=== PATIENT | female | born 1960 | race Caucasian/White ===

== ENCOUNTER 2020-09-08 13:21 | Emergency (ER) | payer MEDICARE, SELFPAY ==
[2020-09-08 13:49] VITALS: BP 135/105; PULSE 105; RESP 24; TEMP 37.2; O2SAT 92; BMI 41.4
--- NOTE | 2020-09-08 14:06 | XR_ITS ---
WS: [id number] Exam: XR chest 1V portable [id number] Date/Time of Exam: 09/08/2020 2:06 PM Reason For Exam: SOB Comparison 10/20/2019. There are widespread patchy infiltrates throughout both lungs consistent with pneumonia. Cardiomedias tinal structures are unremarkable for technique. Bony elements are intact. East rods bridge the lower thoracic spine. No pleural effusions. The lungs are fully expanded. XR/XR chest 1V portable [id number] IMPRESSION: 1. Widespread patchy infiltrates throughout both lungs suggesting pneumonia.
[2020-09-08 14:07] VITALS: O2SAT 94
--- NOTE | 2020-09-08 14:10 | ED_ITS ---
HPI - Weakness General: Chief complaint: Weakness Stated complaint: WEAKNESS, COVID + Time Seen by Provider: 09/08/20 13:36 Source: patient Mode of arrival: EMS Limitations: no limitations History of Present Illness: HPI Narrative: Patient is a 60-year-old female patient who was recently diagnosed with COVID-19 infection. The patient is not a very good historian and could not tell me exactly when she was diagnosed. She complains that for the last week she has been getting progressively weaker and is here for evaluation of that. She denies any fever, shortness of breath, chest pain, dizziness. MD Complaint: generalized weakness Onset (ago): week(s) (1) Duration: constant and progressively worsening Location: generalized Associated symptoms: Denies chills, dysuria, fever(s), headache(s), nausea or vomiting Review of Systems General: Reports: 10 or more systems reviewed and unremarkable except in HPI and below Const: Denies: fever(s), chills or body aches Eyes: Denies: change in vision or blurry vision ENMT: Denies: throat pain, enlarged tonsils, odynophagia, hoarseness, mouth pain or swelling of lips/tongue Card: Denies: palpitations, irregular heart rhythm, edema or swelling of feet/ankles Resp: Denies: dyspnea, productive cough or non-productive cough GI: Denies: abdominal pain, nausea or vomiting : Denies: flank pain, difficulty voiding, dysuria, urinary frequency, urinary urgency or urinary hesitancy Musc: Denies: neck pain, back pain or extremity swelling Skin/Breast: Denies: rash, pruritus or erythema Neuro: Denies: headache(s), numbness in extremities or weakness in extremities Endo: Denies: polyuria, polydipsia or tired all the time Physical Exam Const: COMMON NORMALS: no acute distress, average body habitus, patient oriented x3, no limitations, healthy appearing, alert and well nourished HENMT: COMMON NORMALS: normocephalic, atraumatic and moist oral mucous membranes HEAD & SCALP: normocephalic and atraumatic Neck/C-Spine: COMMON NORMALS: no meningeal signs and no JVD Resp: COMMON NORMALS: normal respiratory effort, No retractions, No use of accessory muscles, clear to auscultation bilaterally and percussion normal AUSCULTATION: clear to auscultation bilaterally PERCUSSION: percussion normal Cardio: COMMON NORMALS: no JVD, regular rate, regular rhythm, S1 normal heart sound present, S2 normal heart sound present, No gallops present (Cardio), No clicks present (Cardio), No murmurs present (Cardio), No rub (Cardio) and Peripheral pulses 2+ throughout RATE: regular rate RHYTHM: regular rhythm HEART SOUNDS: S1 normal heart sound present and S2 normal heart sound present PERIPHERAL PULSES: Peripheral pulses 2+ throughout GI: COMMON NORMALS: Normal to inspection, nondistended, normoactive bowel wilmer nds present, Soft to palpation, non-tender, No hepatosplenomegaly present, no masses and no bruits PALPATION: Yes Soft to palpation and Yes No hepatosplenomegaly present : COMMON NORMALS: Yes no CVA tenderness BLADDER/KIDNEY EXAM: Yes no CVA tenderness Back/Pelvis: COMMON NORMALS: no CVA tenderness Extremity: COMMON NORMALS: normal to inspection, full ROM, capillary refill normal, no calf tenderness and no pedal edema Neuro: COMMON NORMALS: patient oriented x3 SENSORIUM/ORIENTATION: Yes alert MENINGEAL SIGNS: Yes no meningeal signs Skin: COMMON NORMALS: no rashes or lesions noted, no wounds, turgor normal, no jaundice, no petechiae and no mottling GENERAL SKIN EXAM: no rashes or lesions noted and turgor normal Course ED course: Patient was brought into the emergency department for evaluation due to COVID-19. Evaluation in the emergency department was unremarkable and she has with pneumonia. Patient was not hypoxic in the emergency department and she was discharged home Vital Signs: Vital signs: Vital Signs Temperature 99.0 F 09/08/20 13:49 Pulse Rate 78 09/08/20 19:40 Respiratory Rate 18 09/08/20 19:40 Blood Pressure 148/74 09/08/20 19:34 Pulse Oximetry 94 09/08/20 19:40 MDM - Weakness MDM Narrative: Medical decision making narrative: Patient with Covid pneumonia that is uncomplicated. She is not hypoxic, no signs of organ dysfunction. She is discharged home Medical Records: Attestation: I reviewed the patient's medical records. Lab Data: Attestation: I reviewed the patient's lab results. Labs: Lab Results 09/08/20 09/08/2020 Range/Units 14:32 14:32 14:32 WBC 5.7 (4.0-10.0) 10^3/ uL RBC 4.33 (4.1-5.3) 10^6/u L Hgb 13.3 (11.5-15.3) g/dL Hct 38.9 (37.0-47.0) % MCV 89.8 (81-99) fL MCH 30.7 (28.0-34.0) pg MCHC 34.2 (30.0-36.0) g/dL RDW 13.7 (12.1-15.1) % Plt Count 320 (130-400) 10^3/c mm MPV 10.5 H (7.4-10.4) fL Neut % (Auto) 65.9 % Lymph % (Auto) 22.6 % [place] % (Auto) 9.4 % Eos % (Auto) 1.4 % Baso % (Auto) 0.2 % Neut # (Auto) 3.73 (1.8-7.7) 10^3/u L Lymph # (Auto) 1.3 (0.8-4.8) 10^3/u L [place] # (Auto) 0.5 (0.2-0.9) 10^3/u L Eos # (Auto) 0.1 (0.0-0.8) 10^3/u L Baso # (Auto) 0.0 (0.0-0.1) 10^3/u L Nucleated RBC % (a uto) 0 % Nucleated RBCs # 0.0 /100WBC PT 13.90 (12.1-14.9) SECO NDS INR 1.04 (0.8-1.2) D-Dimer 1.67 H (0-0.59) ug/mIFE U Sodium 138 (136-145) mmol/L Potassium 3.1 L (3.5-5.1) mmol/L Chloride 100 (98-107) mmol/L Carbon Dioxide 25 (22-29) mmol/L Anion Gap 16.1 (5-19) BUN 16 (8-23) mg/dL Creatinine 0.5 (0.5-0.9) mg/dL GFR Calculation 125.0 (90-130) mL/min Glucose 111 (65-115) mg/dL Calculated Osmolal ity 288 (285-295) mOsm/k g Lactic Acid (0.5-2.2) mmol/L Calcium 9.2 (8.5-10.5) mg/dL Ferritin 458 H (15-150) ng/mL Total Bilirubin 0.6 (0.15-1.2) mg/dL AST 36 H (0-32) U/L ALT 37 H (0-33) U/L Alkaline Phosphata se 63 (35-105) IU/L Lactate Dehydrogen ase 339 H (135-214) U/L C-Reactive Protein 103.2 H (0.0-4.9) mg/L NT-Pro-B Natriuret Pep 49 (0-125) pg/mL Total Protein 6.6 (6.6-8.7) g/dL Albumin 3.5 (3.5-5.2) g/dL Globulin 3.1 (1.3-4.6) g/dL Procalcitonin 0.06 (0-0.5) ng/mL Influenza Type A A g (Negative) Influenza Type B A g (Negative) 09/08/20 09/08/20 Range/Units 14:32 14:39 WBC (4.0-10.0) 10^3/ uL RBC (4.1-5.3) 10^6/u L Hgb (11.5-15.3) g/dL Hct (37.0-47.0) % MCV (81-99) fL MCH (28.0-34.0) pg MCHC (30.0-36.0) g/dL RDW (12.1-15.1) % Plt Count (130-400) 10^3/c mm MPV (7.4-10.4) fL Neut % (Auto) % Lymph % (Auto) % [place] % (Auto) % Eos % (Auto) % Baso % (Auto) % Neut # (Auto) (1.8-7.7) 10^3/u L Lymph # (Auto) (0.8-4.8) 10^3/u L [place] # (Auto) (0.2-0.9) 10^3/u L Eos # (Auto) (0.0-0.8) 10^3/u L Baso # (Auto) (0.0-0.1) 10^3/u L Nucleated RBC % (a uto) % Nucleated RBCs # /100WBC PT (12.1-14.9) SECO NDS INR (0.8-1.2) D-Dimer (0-0.59) ug/mIFE U Sodium (136-145) mmol/L Potassium (3.5-5.1) mmol/L Chloride (98-107) mmol/L Carbon Dioxide (22-29) mmol/L Anion Gap (5-19) BUN (8-23) mg/dL Creatinine (0.5-0.9) mg/dL GFR Calculation (90-130) mL/min Glucose (65-115) mg/dL Calculated Osmolal ity (285-295) mOsm/k g Lactic Acid 1.1 (0.5-2.2) mmol/L Calcium (8.5-10.5) mg/dL Ferritin (15-150) ng/mL Total Bilirubin (0.15-1.2) mg/dL AST (0-32) U/L ALT (0-33) U/L Alkaline Phosphata se (35-105) IU/L Lactate Dehydrogen ase (135-214) U/L C-Reactive Protein (0.0-4.9) mg/L NT-Pro-B Natriuret Pep (0-125) pg/mL Total Protein (6.6-8.7) g/dL Albumin (3.5-5.2) g/dL Globulin (1.3-4.6) g/dL Procalcitonin (0-0.5) ng/mL Influenza Type A A g Negative (Negative) Influenza Type B A g Negative (Negative) Imaging Data^: CXR: Attestation: I personally reviewed and interpreted this imaging study as follows: Radiologist's impression: [address] [address] XRay Report Signed Patient: Jenniffer Hollingsworth #: [id number] : 8Acct#:[id number] Age/Sex: 60 / FADM Date: 09/08/20 Loc: ERRoom/Bed: Attending Dr: Ordering Provider/Ordering MD: Tor Ortega [place] [facility] [place] Service: 09/08/20 Procedure(s): XR chest 1V portable [id number] Accession Number(s): [id number] Report Number: [id number] WS: [id number] Exam: XR chest 1V portable [id number] Date/Time of Exam: 09/08/2020 2:06 PM Reason For Exam: SOB Comparison 10/20/2019. There are widespread patchy infiltrates throughout both lungs consistent with pneumonia. Cardiomediastinal structures are unremarkable for technique. Bony elements are intact. East rods bridge the lower thoracic spine. No pleural effusions. The lungs are fully expanded. XR/XR chest 1V portable [id number] IMPRESSION: 1. Widespread patchy infiltrates throughout both lungs suggesting pneumonia. Dictated By:Singh Gavin DO Signed By:Uvaldo Fisher Date/Time:09/08/201444 DD/ 41 CTA Chest: Attestation: I personally reviewed and interpreted this imaging study as follows: Radiologist's impression: [place] [address] CT Scan Report Signed Patient: Jenniffer Hollingsworth #: [id number] : 8[facility][id number] Age/Sex: 60 / FADM Date: 09/08/20 Loc: ERRoom/Bed: Attending Dr: Ordering Provider/Ordering MD: Tor Ortega MD, [facility] [place] of Service: 09/08/20 Procedure(s): CT angio chest PE protcl [id number] Accession Number(s): [id number] Report Number: [id number] WS: [id number] Exam: CT angio chest PE protcl [id number] Date/Time of Exam: 09/08/2020 3:56 PM Reason For Exam: SOB DLP: 579.[address] scans at [facility] use at least one of these dose optimization techniques: automated exposure control; mA and/or kV adjustment per patient size (includes targeted exams where dose is matched to clinical indication); or iterative reconstruction. Motion artifact noted on multiple images. No sign of acute PE. The thoracic aorta is normal in caliber. The airway is patent. No significant lymphadenopathy in the chest. There are patchy groundglass infiltrates scattered throughout both lungs. No pericardial effusion . No significant pleural effusion. Large hiatal hernia. There is hardware in the lower thoracic and lumbar spine. No destructive bone lesions are chest wall defects. CT/CT angio chest PE protcl [id number] IMPRESSION: 1. No sign of acute PE. 2. Patchy groundglass infiltrates noted throughout both lungs which are nonspecific but can be seen with Covid pneumonia. 3. Large hiatal hernia. Dictated By:Singh Gavin DO Signed By:Uvaldo Fisher Date/Time:09/08/20 1705 DD/ 58 Discharge Plan Discharge Patient Disposition: Home Clinical Impression: Pneumonia due to 2019 novel coronavirus Condition: Stable Prescriptions: New dexamethasone 6 mg tablet 6 mg PO DAILY Qty: 9 RF: 0 Continued lisinopril 10 mg tablet 10 mg PO DAILY Qty: 90 RF: 0 sucralfate 1 gram tablet 1 g PO TID RF: 0 clonazepam 0.5 mg tablet 0.5 mg PO TID RF: 0 pantoprazole 40 mg tablet,delayed release (DR/EC) 40 mg PO DAILY RF: 0 olanzapine 15 mg tablet 15 mg PO DAILY RF: 0 paroxetine HCl 40 mg tablet 40 mg PO DAILY RF: 0 fluticasone propionate 50 mcg/actuation spray,suspension 1 spray INTRANASAL DAILY RF: 0 bupropion HCl 200 mg tablet sustained-release 12 hr 200 mg PO BID RF: 0 metoprolol tartrate 25 mg tablet 25 mg PO BID RF: 0 Fosamax 70 mg tablet 70 mg PO Q7D RF: 0 Discharge Orders: Discharge Order (Routine); Ordered 09/08/20 Ordered By: Tor Ortega Referrals: Alisson Sánchez MD [Family Provider] - 1-3 days Discharge Diet: Usual diet Discharge Activity: Resume usual activity and Increase activity as tolerated Patient Instructions: Pneumonia - Viral Activity Restrictions/Additional Instructions: Return for any new or worsening symptoms. Follow-up with your primary care provider within 3 days. Take the medications as prescribed. Discharge Date/Time: 09/08/20 19:40 Coding Level of Care Code ED Animal Treatment Investigator for Chg Fwd Exam Comprehensive
[2020-09-08 14:40] LABS: Basophils % 0.2 %; Eosinophils # 0.1 10^3/uL (0.0-0.8); Eosinophils % 1.4 %; Hematocrit 38.9 % (37.0-47.0); Hemoglobin 13.3 g/dL (11.5-15.3); Lymphocytes # 1.3 10^3/uL (0.8-4.8); Lymphocytes % 22.6 %; Mean Corpuscular HGB Conc 34.2 g/dL (30.0-36.0); Mean Corpuscular Hemoglobin 30.7 pg (28.0-34.0); Mean Corpuscular Volume 89.8 fL (81-99); Mean Platelet Volume 10.5 fL (7.4-10.4); Monocytes # 0.5 10^3/uL (0.2-0.9); Monocytes % 9.4 %; Neutrophils # 3.73 10^3/uL (1.8-7.7); Neutrophils % 65.9 %; Nucleated Red Blood Cells % 0 %; Platelet Count 320 10^3/cmm (130-400); Red Blood Count 4.33 10^6/uL (4.1-5.3); Red Cell Distribution Width 13.7 % (12.1-15.1); White Blood Count 5.7 10^3/uL (4.0-10.0)
[2020-09-08 14:41] VITALS: BP 128/96; O2SAT 91
[2020-09-08 15:13] LABS: Lactic Sepsis W/Reflex 1.1 mmol/L (0.5-2.2)
[2020-09-08 15:17] LABS: NT Pro B Type Natriuretic Pept 49 pg/mL (0-125); Procalcitonin 0.06 ng/mL (0-0.5)
[2020-09-08 15:29] LABS: Alanine Aminotransferase 37 U/L (0-33); Albumin Level 3.5 g/dL (3.5-5.2); Alkaline Phosphatase 63 IU/L (35-105); Anion Gap 16.1 (5-19); Aspartate Amino Transferase 36 U/L (0-32); Blood Urea Nitrogen 16 mg/dL (8-23); C Reactive Protein 103.2 mg/L (0.0-4.9); Calcium 9.2 mg/dL (8.5-10.5); Carbon Dioxide 25 mmol/L (22-29); Chloride 100 mmol/L (98-107); Ferritin 458 ng/mL (15-150); Globulin 3.1 g/dL (1.3-4.6); Glucose 111 mg/dL (65-115); Lactate Dehydrogenase 339 U/L (135-214); Osmolality Calculated 288 mOsm/kg (285-295); Potassium 3.1 mmol/L (3.5-5.1); Sodium 138 mmol/L (136-145); Total Bilirubin 0.6 mg/dL (0.15-1.2); Total Protein 6.6 g/dL (6.6-8.7)
[2020-09-08 15:41] LABS: Influenza A by IFA Negative (Negative); Influenza B by IFA Negative (Negative)
[2020-09-08 15:46] LABS: INR 1.04 (0.8-1.2)
[2020-09-08 15:49] LABS: D Dimer 1.67 ug/mIFEU (0-0.59)
--- NOTE | 2020-09-08 15:54 | CT_ITS ---
WS: [id number] Exam: CT angio chest PE protcl [id number] Date/Time of Exam: 09/08/2020 3:56 PM Reason For Exam: SOB DLP: 579.[address] scans at [facility] use at least one of these dose optimization techniques: automat ed exposure control; mA and/or kV adjustment per patient size (includes targeted exams where dose is matched to clinical indication); or iterative reconstruction. Motion artifact noted on multiple image s. No sign of acute PE. The thoracic aorta is normal in caliber. The airway is patent. No significant ly mphadenopathy in the chest. There are patchy groundglass infiltrates scattered throughout both lungs. No pericardial effusion. No significant pleural effusion. Large hiatal hernia. There is hardware in the lower thoracic and lumbar spine. No destructive bone lesions are chest wall defects. CT/CT angio chest PE protcl [id number] IMPRESSION: 1. No sign of acute PE. 2. Patchy groundglass infiltrates noted throughout both lungs which are nonspec ific but can be seen with Covid pneumonia. 3. Large hiatal hernia.
[2020-09-08] MEDS: potassium chloride oral liq 20 mEq/15 mL UDC 40 MEQ PO (16:18)
[2020-09-08 16:20] VITALS: BP 158/114; PULSE 121; O2SAT 93
[2020-09-08] MEDS: iohexol 350 mg/mL 100 mL Btl IV (16:42)
[2020-09-08] MEDS: dexamethasone 4 mg/mL INJ 6 MG IVP (17:47)
--- NOTE | 2020-09-08 18:35 | PC.NURSE ---
Rosalind Chan (daughter) contacted for pt transport home.
[2020-09-08 19:34] VITALS: BP 148/74; PULSE 87; RESP 16; O2SAT 99
[2020-09-08 19:40] VITALS: PULSE 78; RESP 18; O2SAT 94
== END 2020-09-08 19:40 | disposition home or self-care (01) ==
PROVIDERS: Emergency Provider Family Medicine; Family Provider Family Medicine
DX: U07.1 COVID-19 (principal); J12.89 Other viral pneumonia; R06.02 Shortness of breath
CPT/HCPCS: 12345; 71045; 71275; 80053; 82728; 83605; 83615; 83880; 84145; 85025; 85378; 85610; 86140; 87804; 96374; 96375; 99283; 99284; J1100; Q9967

== ENCOUNTER 2021-10-20 15:34 | Emergency (ER) | payer MEDICARE, MEDICAID, SELFPAY ==
[2021-10-20 15:42] VITALS: BP 162/103; PULSE 72; RESP 18; TEMP 36.9; O2SAT 97; BMI 37.2
--- NOTE | 2021-10-20 17:00 | ECG_ITS ---
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 Measurements Intervals Maury Rate: 67 P: 49 OR: 180 QRS: 12 QRSD: 75 T: 32 QT: 407 QTc: 431 Interpretive Statements SINUS RHYTHM LOW QRS VOLTAGE IN PRECORDIAL LEADS [QRS DEFLECTION < 1.0 mV IN CHEST LEADS] NONSPECIFIC ST & T-WAVE ABNORMALITY No previous ECG available for comparison Electronically Signed On 10-22-2021 7:39:30 [employer] by Edy Del Angel M.D. [id number]
--- NOTE | 2021-10-20 17:00 | CTR_ITS ---
PROCEDURE INFORMATION: Exam: CT Abdomen And Pelvis With Contrast Exam date and time: 10/20/2021 5:00 PM Age: 61 years old Clinical indication: Generalized; Prior surgery; Patient HX: Lower abdominal pain; Additional info: Abd pain TECHNIQUE: Imaging protocol: Computed tomography of the abdomen and pelvis with contrast. Radiation optimization: All CT scans at this facility use at least one of these dose optimization techniques: automated exposure control; mA and/or kV adjustment per patient size (includes targeted exams where dose is matched to clinical indication); or iterative reconstruction. Contrast material: RAMIRO 300; Contrast volume: 95 ml; Contrast route: INTRAVENOUS (IV); COMPARISON: CT angio chest PE protcl [id number] 09/08/2020 4:38 PM RADIATION DOSE METRICS: Total DLP (mGy-cm): 1910.6 FINDINGS: Diaphragm: A moderate hiatal hernia is present. Liver: 1.7 cm cyst left lobe of liver. Gallbladder and bile ducts: There has been a cholecystectomy. There is no biliary tract dilatation. Pancreas: The pancreas is normal. Spleen: The spleen is normal. Adrenal glands: The adrenal glands are normal. Kidneys and ureters: The kidneys are normal. There is no evidence of hydronephrosis. There is no evidence of renal or ureteral calcifications. Stomach and bowel: There is no evidence of intestinal obstruction. Appendix: Not identified Intraperitoneal space: There is no evidence of free intraperitoneal fluid. Vasculature: The aorta demonstrates mild atherosclerotic calcification. There is no evidence of an abdominal aortic aneurysm. Lymph nodes: There is no evidence of lymphadenopathy. Urinary bladder: Unremarkable as visualized. Reproductive: There has been a hysterectomy. Bones/joints: There are surgical changes in the rectal lumbar spine with posterior spinal fusion using pedicle screws at multiple levels and anti in rods with T12 laminectomy. Chronic compression fracture and findings of kyphoplasty at T12 are identified. No acute fracture is demonstrated. There are old healed left rib fractures. Soft tissues: Unremarkable. CT/CT abdomen pelvis w con* [id number] IMPRESSION: No acute findings.
--- NOTE | 2021-10-20 17:01 | XRR_ITS ---
PROCEDURE INFORMATION: Exam: XR Chest Exam date and time: 10/20/2021 5:01 PM Age: 61 years old Clinical indication: Pain; Other: Upper abd; Additional info: AMS TECHNIQUE: Imaging protocol: XR of the chest. Views: 1 view. COMPARISON: CR XR chest 1V portable [id number] 09/08/2020 2:26 PM FINDINGS: Lungs: Visualized portions of the lungs are clear. Pneumonia demonstrated on the prior examination has completely cleared. Pleural spaces: Unremarkable. No pleural effusion. No pneumothorax. Heart/Mediastinum: Heart is within normal limits of size. Bones/joints: There is stable postsurgical changes in the lower thoracic spine from spinal fusion. XR/XR chest 1V portable [id number] IMPRESSION: No acute infiltrate.
--- NOTE | 2021-10-20 17:01 | CTR_ITS ---
PROCEDURE INFORMATION: Exam: CT Head Without Contrast Exam date and time: 10/20/2021 5:01 PM Age: 61 years old Clinical indication: Altered mental status/memory loss; Confusion or disorientation; Patient HX: AMS w/ HX of dementia TECHNIQUE: Imaging protocol: Computed tomography of the head without contrast. Radiation optimization: All CT scans at this facility use at least one of these dose optimization techniques: automated exposure control; mA and/or kV adjustment per patient size (includes targeted exams where dose is matched to clinical indication); or iterative reconstruction. COMPARISON: No relevant prior studies available. RADIATION DOSE METRICS: Total DLP (mGy-cm): 950.26 FINDINGS: Brain: There is mild cortical atrophy. Low-density changes in the white matter are consistent with nonspecific small vessel chronic ischemic change. There is no intracranial mass, hemorrhage or edema. Cerebral ventricles: No ventriculomegaly. Paranasal sinuses: There is complete opacification of the right maxillary sinus and what appears to be medial antrectomy on the right. There are some mucous retention cysts in the left maxillary sinus. Mastoid air cells: Visualized mastoid air cells are well aerated. Bones/joints: There is benign-appearing calcified meningioma along the left parietal calvarium. Soft tissues: Unremarkable. CT/CT head wo con* [id number] IMPRESSION: 1. Sinus disease 2. No acute intracranial finding.
--- NOTE | 2021-10-20 17:02 | W.ED.AMS ---
Documented by User: Nathan Brady MD 10/20/21 17:55 HPI - Altered Mental Status General: Chief Complaint: Altered Mental Status Stated Complaint: AMS/ RECENT MED CHANGE Time Seen by Provider: 10/20/21 16:07 History of Present Illness: HPI narrative: 61-year-old female presents by EMS due to confusion. According to family she has been more confused recently but does not know exactly for how long. Per patient she has had some abdominal pain over the last 2 weeks. States that recently her doctor increase her dose of trazodone this is making her more tired and drowsy. Denies any nausea vomiting diarrhea constipation. Denies dysuria or pelvic discharge. Denies any falls or head trauma. Denies focal numbness weakness or tingling. Denies neck pain. Review of Systems Narrative: - CONSTITUTIONAL: Denies weight loss, fever and chills. - HEENT: Denies changes in vision and hearing. - RESPIRATORY: Denies SOB and cough. - CV: Denies palpitations and CP. - GI: As above - : Denies dysuria and urinary frequency. - MSK: Denies myalgia and joint pain. - SKIN: Denies rash and pruritus. - NEUROLOGICAL: As above - PSYCHIATRIC: Denies suicidal ideation Physical Exam Narrative: EXAM NARRATIVE: - GENERAL: Alert and oriented x 3. No acute distress. Well-nourished. - EYES: EOMI. Anicteric. - HENT: Atraumatic, no C-spine tenderness. Moist mucous membranes. No scleral icterus. No cervical lymphadenopathy. - LUNGS: Clear to auscultation bilaterally. No accessory muscle use. Equal lung sounds bilaterally. No respiratory distress. - CARDIOVASCULAR: Regular rate and rhythm. No murmur. No JVD. - ABDOMEN: Soft, mild diffuse tenderness. Negative CVA tenderness bilaterally, no rebound or guarding, negative [place] sign. No palpable masses. - EXTREMITIES: No edema. Non-tender. - SKIN: No rashes or lesions. Warm. - NEUROLOGIC: No meningismus or focal neurological deficits. CN II-XII grossly intact. - PSYCHIATRIC: Cooperative. Appropriate mood and affect. Course Vital Signs: Vital signs: Vital Signs Temperature 98.4 F 10/20/21 15:42 Pulse Rate 72 10/20/21 15:42 Respiratory Rate 18 10/20/21 15:42 Blood Pressure 162/103 10/20/21 15:42 Pulse Oximetry 97 10/20/21 15:42 MDM - Altered Mental Status MDM Narrative: Medical decision making narrative: 61-year-old female presents due to increasing confusion and abdominal pain. She recently had her trazodone dose increased which may explain confusion. Nonfocal neurologic exam. CT of the head is currently pending but she denies any falls or headache or neck pain. Also complains of abdominal pain for which abdominal CT is currently pending. However otherwise she is hematin stable afebrile nontoxic-appearing. Patient signed out to Dr. Woody. Lab Data: Labs: Lab Results 10/20/21 10/20/21 10/20/21 14:53 15:30 15:30 WBC 8.1 10^3/uL 10^3/ uL (4.0-10.0) RBC 4.71 10^6/uL 10^6 /uL (4.1-5.3) Hgb 14.2 g/dL g/dL (11.5-15.3) Hct 42.7 % % (37.0-47.0) MCV 90.7 fl fl (81-99) MCH 30.1 pg pg (28.0-34.0) MCHC 33.3 g/dL g/dL (30.0-36.0) RDW 14.0 % % (12.1-15.1) Plt Count 261 10^3/cmm 10^3 /cmm (130-400) MPV 11.2 fL H fL (7.4-10.4) Neut % (Auto) 49.3 % % Lymph % (Auto) 41.5 % % [place] % (Auto) 6.9 % % Eos % (Auto) 1.6 % % Baso % (Auto) 0.5 % % Neut # (Auto) 3.98 10^3/uL 10^3 /uL (1.8-7.7) Lymph # (Auto) 3.4 10^3/uL 10^3/ uL (0.8-4.8) [place] # (Auto) 0.6 10^3/uL 10^3/ uL (0.2-0.9) Eos # (Auto) 0.1 10^3/uL 10^3/ uL (0.0-0.8) Baso # (Auto) 0.0 10^3/uL 10^3/ uL (0.0-0.1) Nucleated RBC % (a uto) 0 % % Nucleated RBCs # 0.0 /100WBC /100W BC Sodium 141 mmol/L mmol/L (136-145) Potassium 3.6 mmol/L mmol/L (3.5-5.1) Chloride 105 mmol/L mmol/L (98-107) Carbon Dioxide 26 mmol/L mmol/L (22-29) Anion Gap 13.6 (5-19) BUN 12 mg/dL mg/dL (8-23) Creatinine 0.6 mg/dL mg/dL (0.5-0.9) GFR Calculation 101.0 mL/min mL/m in (90-130) Glucose 109 mg/dL mg/dL (65-115) Calculated Osmolal ity 292 mOsm/kg mOsm/ kg (285-295) Lactate Calcium 8.6 mg/dL mg/dL (8.5-10.5) Total Bilirubin 0.4 mg/dL mg/dL (0.15-1.2) AST 16 U/L U/L (0-32) ALT 27 U/L U/L (0-33) Alkaline Phosphata se 81 IU/L IU/L (35-105) Total Protein 6.2 g/dL L g/dL (6.6-8.7) Albumin 4.2 g/dL g/dL (3.5-5.2) Globulin 2.0 g/dL g/dL (1.3-4.6) Lipase 30 U/L U/L (13-60) TSH 1.80 uIU/mL uIU/m L (0.27-4.20) Urine Color Urine Appearance Urine pH Ur Specific Gravit y Urine Protein Urine Glucose (UA) Urine Ketones Urine Blood Urine Nitrate Urine Bilirubin Urine Urobilinogen Ur Leukocyte Emma ase Urine RBC Urine WBC Ur Squamous Epith Cells Amorphous Sediment Urine Bacteria Salicylates < 0.3 mg/dL L mg/ dL (3-10) Urine Opiates Scre en Acetaminophen < 5.0 ug/mL L ug/ mL (10-30) Ur Barbiturates Sc reen Ur Phencyclidine S crn Ur Amphetamines Sc reen U Benzodiazepines Scrn Urine Cocaine Scre en U Marijuana (THC) Screen Ethyl Alcohol < 10 mg/dL mg/dL (0-10) SARS-CoV-2 Ag (Rap id) 10/20/21 10/20/21 10/20/21 17:14 17:29 17:38 WBC RBC Hgb Hct MCV MCH MCHC RDW Plt Count MPV Neut % (Auto) Lymph % (Auto) [place] % (Auto) Eos % (Auto) Baso % (Auto) Neut # (Auto) Lymph # (Auto) [place] # (Auto) Eos # (Auto) Baso # (Auto) Nucleated RBC % (a uto) Nucleated RBCs # Sodium Potassium Chloride Carbon Dioxide Anion Gap BUN Creatinine GFR Calculation Glucose Calculated Osmolal ity Lactate 1.0 mmol/L mmol/L (0.5-2.2) Calcium Total Bilirubin AST ALT Alkaline Phosphata se Total Protein Albumin Globulin Lipase TSH Urine Color Straw (Yellow) Urine Appearance Clear (CLEAR) Urine pH 7 (5-7) Ur Specific Gravit y 1.010 (1.005-1.030) Urine Protein Neg (Negative) Urine Glucose (UA) Norm (Normal) Urine Ketones Negative (Negative) Urine Blood Neg (Negative) Urine Nitrate Negative (Negative) Urine Bilirubin Neg (Negative) Urine Urobilinogen Norm mg/dL mg/dL (Negative) Ur Leukocyte Emma ase Negative (Negative) Urine RBC Not Reportable Urine WBC 0-4 /hpf H /hpf (0-5) Ur Squamous Epith Cells 0-4 /hpf H /hpf (0-5) Amorphous Sediment Not Reportable Urine Bacteria Trace /hpf /hpf (NONE) Salicylates Urine Opiates Scre en Acetaminophen Ur Barbiturates Sc reen Ur Phencyclidine S crn Ur Amphetamines Sc reen U Benzodiazepines Scrn Urine Cocaine Scre en U Marijuana (THC) Screen Ethyl Alcohol SARS-CoV-2 Ag (Rap id) Negative (Negative) 10/20/21 19:26 WBC RBC Hgb Hct MCV MCH MCHC RDW Plt Count MPV Neut % (Auto) Lymph % (Auto) [place] % (Auto) Eos % (Auto) Baso % (Auto) Neut # (Auto) Lymph # (Auto) [place] # (Auto) Eos # (Auto) Baso # (Auto) Nucleated RBC % (a uto) Nucleated RBCs # Sodium Potassium Chloride Carbon Dioxide Anion Gap BUN Creatinine GFR Calculation Glucose Calculated Osmolal ity Lactate Calcium Total Bilirubin AST ALT Alkaline Phosphata se Total Protein Albumin Globulin Lipase TSH Urine Color Urine Appearance Urine pH Ur Specific Gravit y Urine Protein Urine Glucose (UA) Urine Ketones Urine Blood Urine Nitrate Urine Bilirubin Urine Urobilinogen Ur Leukocyte Emma ase Urine RBC Urine WBC Ur Squamous Epith Cells Amorphous Sediment Urine Bacteria Salicylates Urine Opiates Scre en Negative ng/mL ng /mL (Negative) Acetaminophen Ur Barbiturates Sc reen Negative ng/mL ng /mL (Negative) Ur Phencyclidine S crn Negative ng/mL ng /mL (Negative) Ur Amphetamines Sc reen Negative ng/mL ng /mL (Negative) U Benzodiazepines Scrn Negative ng/mL ng /mL (Negative) Urine Cocaine Scre en Negative ng/mL ng /mL (Negative) U Marijuana (THC) Screen Negative ng/mL ng /mL (Negative) Ethyl Alcohol SARS-CoV-2 Ag (Rap id) Discharge Plan Discharge Patient Disposition: Home Clinical Impression: Altered mental status, Delusional disorder Condition: Stable Prescriptions: No Action lisinopril 10 mg tablet 10 mg PO DAILY Qty: 90 RF: 0 sucralfate 1 gram tablet 1 g PO TID RF: 0 clonazepam 0.5 mg tablet 0.5 mg PO TID RF: 0 pantoprazole 40 mg tablet,delayed release (DR/EC) 40 mg PO DAILY RF: 0 olanzapine 15 mg tablet 15 mg PO DAILY RF: 0 paroxetine HCl 40 mg tablet 40 mg PO DAILY RF: 0 fluticasone propionate 50 mcg/actuation spray,suspension 1 spray INTRANASAL DAILY RF: 0 bupropion HCl 200 mg tablet sustained-release 12 hr 200 mg PO BID RF: 0 metoprolol tartrate 25 mg tablet 25 mg PO BID RF: 0 Fosamax 70 mg tablet 70 mg PO Q7D RF: 0 dexamethasone 6 mg tablet 6 mg PO DAILY Qty: 9 RF: 0 Discharge Orders: Discharge ED (Routine); Ordered 10/20/21 Ordered By: Ashley Woody Referrals: Alisson Sánchez MD [Primary Care Provider] - 1-3 days Discharge Diet: Advance as tolerated Discharge Activity: Resume usual activity Patient Instructions: Abdominal Pain (ED) Coding Level of Care Code ED Baling Machine Operator for Chg Fwd Documented by User: Ashley Woody MD 10/20/21 21:18 HPI - Altered Mental Status General: Chief Complaint: Altered Mental Status Stated Complaint: AMS/ RECENT MED CHANGE Time Seen by Provider: 10/20/21 16:07 Course Vital Signs: Vital signs: Vital Signs Temperature 98.4 F 10/20/21 15:42 Pulse Rate 72 10/20/21 15:42 Respiratory Rate 18 10/20/21 15:42 Blood Pressure 162/103 10/20/21 15:42 Pulse Oximetry 97 10/20/21 15:42 MDM - Altered Mental Status MDM Narrative: Medical decision making narrative: Patient presents with some confusion likely taking too much of her trazodone patient's been well-appearing here I took over from other physician. When spoke to her and her family at length the family is requesting to be admitted to psych facility but here she is answering all my questions completely appropriate she has her own medical decision made capacity I did offer her admission to the psych [facility] and she refuses she is ANO x4 and I cannot force her to have an no grounds to place her under 96-hour hold. She is stable for discharge is return if worsening. Lab Data: Labs: Lab Results 10/20/21 10/20/21 10/20/21 14:53 15:30 15:30 WBC 8.1 10^3/uL 10^3/ uL (4.0-10.0) RBC 4.71 10^6/uL 10^6 /uL (4.1-5.3) Hgb 14.2 g/dL g/dL (11.5-15.3) Hct 42.7 % % (37.0-47.0) MCV 90.7 fl fl (81-99) MCH 30.1 pg pg (28.0-34.0) MCHC 33.3 g/dL g/dL (30.0-36.0) RDW 14.0 % % (12.1-15.1) Plt Count 261 10^3/cmm 10^3 /cmm (130-400) MPV 11.2 fL H fL (7.4-10.4) Neut % (Auto) 49.3 % % Lymph % (Auto) 41.5 % % [place] % (Auto) 6.9 % % Eos % (Auto) 1.6 % % Baso % (Auto) 0.5 % % Neut # (Auto) 3.98 10^3/uL 10^3 /uL (1.8-7.7) Lymph # (Auto) 3.4 10^3/uL 10^3/ uL (0.8-4.8) [place] # (Auto) 0.6 10^3/uL 10^3/ uL (0.2-0.9) Eos # (Auto) 0.1 10^3/uL 10^3/ uL (0.0-0.8) Baso # (Auto) 0.0 10^3/uL 10^3/ uL (0.0-0.1) Nucleated RBC % (a uto) 0 % % Nucleated RBCs # 0.0 /100WBC /100W BC Sodium 141 mmol/L mmol/L (136-145) Potassium 3.6 mmol/L mmol/L (3.5-5.1) Chloride 105 mmol/L mmol/L (98-107) Carbon Dioxide 26 mmol/L mmol/L (22-29) Anion Gap 13.6 (5-19) BUN 12 mg/dL mg/dL (8-23) Creatinine 0.6 mg/dL mg/dL (0.5-0.9) GFR Calculation 101.0 mL/min mL/m in (90-130) Glucose 109 mg/dL mg/dL (65-115) Calculated Osmolal ity 292 mOsm/kg mOsm/ kg (285-295) Lactate Calcium 8.6 mg/dL mg/dL (8.5-10.5) Total Bilirubin 0.4 mg/dL mg/dL (0.15-1.2) AST 16 U/L U/L (0-32) ALT 27 U/L U/L (0-33) Alkaline Phosphata se 81 IU/L IU/L (35-105) Total Protein 6.2 g/dL L g/dL (6.6-8.7) Albumin 4.2 g/dL g/dL (3.5-5.2) Globulin 2.0 g/dL g/dL (1.3-4.6) Lipase 30 U/L U/L (13-60) TSH 1.80 uIU/mL uIU/m L (0.27-4.20) Urine Color Urine Appearance Urine pH Ur Specific Gravit y Urine Protein Urine Glucose (UA) Urine Ketones Urine Blood Urine Nitrate Urine Bilirubin Urine Urobilinogen Ur Leukocyte Emma ase Urine RBC Urine WBC Ur Squamous Epith Cells Amorphous Sediment Urine Bacteria Salicylates < 0.3 mg/dL L mg/ dL (3-10) Urine Opiates Scre en Acetaminophen < 5.0 ug/mL L ug/ mL (10-30) Ur Barbiturates Sc reen Ur Phencyclidine S crn Ur Amphetamines Sc reen U Benzodiazepines Scrn Urine Cocaine Scre en U Marijuana (THC) Screen Ethyl Alcohol < 10 mg/dL mg/dL (0-10) SARS-CoV-2 Ag (Rap id) 10/20/21 10/20/21 10/20/21 17:14 17:29 17:38 WBC RBC Hgb Hct MCV MCH MCHC RDW Plt Count MPV Neut % (Auto) Lymph % (Auto) [place] % (Auto) Eos % (Auto) Baso % (Auto) Neut # (Auto) Lymph # (Auto) [place] # (Auto) Eos # (Auto) Baso # (Auto) Nucleated RBC % (a uto) Nucleated RBCs # Sodium Potassium Chloride Carbon Dioxide Anion Gap BUN Creatinine GFR Calculation Glucose Calculated Osmolal ity Lactate 1.0 mmol/L mmol/L (0.5-2.2) Calcium Total Bilirubin AST ALT Alkaline Phosphata se Total Protein Albumin Globulin Lipase TSH Urine Color Straw (Yellow) Urine Appearance Clear (CLEAR) Urine pH 7 (5-7) Ur Specific Gravit y 1.010 (1.005-1.030) Urine Protein Neg (Negative) Urine Glucose (UA) Norm (Normal) Urine Ketones Negative (Negative) Urine Blood Neg (Negative) Urine Nitrate Negative (Negative) Urine Bilirubin Neg (Negative) Urine Urobilinogen Norm mg/dL mg/dL (Negative) Ur Leukocyte Emma ase Negative (Negative) Urine RBC Not Reportable Urine WBC 0-4 /hpf H /hpf (0-5) Ur Squamous Epith Cells 0-4 /hpf H /hpf (0-5) Amorphous Sediment Not Reportable Urine Bacteria Trace /hpf /hpf (NONE) Salicylates Urine Opiates Scre en Acetaminophen Ur Barbiturates Sc reen Ur Phencyclidine S crn Ur Amphetamines Sc reen U Benzodiazepines Scrn Urine Cocaine Scre en U Marijuana (THC) Screen Ethyl Alcohol SARS-CoV-2 Ag (Rap id) Negative (Negative) 10/20/21 19:26 WBC RBC Hgb Hct MCV MCH MCHC RDW Plt Count MPV Neut % (Auto) Lymph % (Auto) [place] % (Auto) Eos % (Auto) Baso % (Auto) Neut # (Auto) Lymph # (Auto) [place] # (Auto) Eos # (Auto) Baso # (Auto) Nucleated RBC % (a uto) Nucleated RBCs # Sodium Potassium Chloride Carbon Dioxide Anion Gap BUN Creatinine GFR Calculation Glucose Calculated Osmolal ity Lactate Calcium Total Bilirubin AST ALT Alkaline Phosphata se Total Protein Albumin Globulin Lipase TSH Urine Color Urine Appearance Urine pH Ur Specific Gravit y Urine Protein Urine Glucose (UA) Urine Ketones Urine Blood Urine Nitrate Urine Bilirubin Urine Urobilinogen Ur Leukocyte Emma ase Urine RBC Urine WBC Ur Squamous Epith Cells Amorphous Sediment Urine Bacteria Salicylates Urine Opiates Scre en Negative ng/mL ng /mL (Negative) Acetaminophen Ur Barbiturates Sc reen Negative ng/mL ng /mL (Negative) Ur Phencyclidine S crn Negative ng/mL ng /mL (Negative) Ur Amphetamines Sc reen Negative ng/mL ng /mL (Negative) U Benzodiazepines Scrn Negative ng/mL ng /mL (Negative) Urine Cocaine Scre en Negative ng/mL ng /mL (Negative) U Marijuana (THC) Screen Negative ng/mL ng /mL (Negative) Ethyl Alcohol SARS-CoV-2 Ag (Rap id) Discharge Plan Discharge Patient Disposition: Home Clinical Impression: Altered mental status, Delusional disorder Condition: Stable Prescriptions: No Action lisinopril 10 mg tablet 10 mg PO DAILY Qty: 90 RF: 0 sucralfate 1 gram tablet 1 g PO TID RF: 0 clonazepam 0.5 mg tablet 0.5 mg PO TID RF: 0 pantoprazole 40 mg tablet,delayed release (DR/EC) 40 mg PO DAILY RF: 0 olanzapine 15 mg tablet 15 mg PO DAILY RF: 0 paroxetine HCl 40 mg tablet 40 mg PO DAILY RF: 0 fluticasone propionate 50 mcg/actuation spray,suspension 1 spray INTRANASAL DAILY RF: 0 bupropion HCl 200 mg tablet sustained-release 12 hr 200 mg PO BID RF: 0 metoprolol tartrate 25 mg tablet 25 mg PO BID RF: 0 Fosamax 70 mg tablet 70 mg PO Q7D RF: 0 dexamethasone 6 mg tablet 6 mg PO DAILY Qty: 9 RF: 0 Discharge Orders: Discharge ED (Routine); Ordered 10/20/21 Ordered By: Ashley Woody Referrals: Alisson Sánchez MD [Primary Care Provider] - 1-3 days Discharge Diet: Advance as tolerated Discharge Activity: Resume usual activity Patient Instructions: Abdominal Pain (ED) Coding Level of Care Code ED Baling Machine Operator for Vicki Bach
[2021-10-20 17:11] LABS: Basophils % 0.5 %; Eosinophils # 0.1 10^3/uL (0.0-0.8); Eosinophils % 1.6 %; Hematocrit 42.7 % (37.0-47.0); Hemoglobin 14.2 g/dL (11.5-15.3); Lymphocytes # 3.4 10^3/uL (0.8-4.8); Lymphocytes % 41.5 %; Mean Corpuscular HGB Conc 33.3 g/dL (30.0-36.0); Mean Corpuscular Hemoglobin 30.1 pg (28.0-34.0); Mean Corpuscular Volume 90.7 fl (81-99); Mean Platelet Volume 11.2 fL (7.4-10.4); Monocytes # 0.6 10^3/uL (0.2-0.9); Monocytes % 6.9 %; Neutrophils # 3.98 10^3/uL (1.8-7.7); Neutrophils % 49.3 %; Nucleated Red Blood Cells % 0 %; Platelet Count 261 10^3/cmm (130-400); Red Blood Count 4.71 10^6/uL (4.1-5.3); White Blood Count 8.1 10^3/uL (4.0-10.0)
[2021-10-20 17:29] LABS: Bacteria Urine TRACE /hpf; Bilirubin Urine Neg (Negative); Blood Urine Neg (Negative); Glucose Urine UA Norm (Normal); Ketones Urine Negative (Negative); Leukocyte Esterase Urine Negative (Negative); Nitrate Urine Negative (Negative); Protein Urine Neg (Negative); Squamous Epithelial Cell Urine 0-4 /hpf (0-5); Urine Appearance Clear (CLEAR); Urine Color Straw (Yellow); Urobilinogen Urine Norm (Negative); WBC Urine 0-4 /hpf (0-5); pH Urine 7 (5-7)
[2021-10-20 17:30] LABS: Alanine Aminotransferase 27 U/L (0-33); Albumin Level 4.2 g/dL (3.5-5.2); Alkaline Phosphatase 81 IU/L (35-105); Anion Gap 13.6 (5-19); Aspartate Amino Transferase 16 U/L (0-32); Blood Urea Nitrogen 12 mg/dL (8-23); Calcium 8.6 mg/dL (8.5-10.5); Carbon Dioxide 26 mmol/L (22-29); Chloride 105 mmol/L (98-107); Glucose 109 mg/dL (65-115); Lipase 30 U/L (13-60); Osmolality Calculated 292 mOsm/kg (285-295); Potassium 3.6 mmol/L (3.5-5.1); Sodium 141 mmol/L (136-145); Total Bilirubin 0.4 mg/dL (0.15-1.2); Total Protein 6.2 g/dL (6.6-8.7)
[2021-10-20 17:30] LABS: Add Urine Culture? No
[2021-10-20] MEDS: iohexol 300 mg/mL 100 mL Btl IV (18:03)
[2021-10-20 18:05] LABS: SARS Covid-2 Antigen Negative (Negative)
[2021-10-20] MEDS: acetaminophen 500 mg Tablet PO (18:14)
[2021-10-20 19:37] LABS: Amphetamines Screen Urine Negative (Negative); Barbiturates Screen Urine Negative (Negative); Benzodiazepines Screen Urine Negative (Negative); Cocaine Screen Urine Negative (Negative); Opiate Screen Urine Negative (Negative); PCP Screen Urine Negative (Negative); THC Screen Urine Negative (Negative)
[2021-10-20 19:49] LABS: Acetaminophen < 5.0 ug/mL (10-30); Alcohol Level < 10 mg/dL (0-10); Salicylate < 0.3 mg/dL (3-10)
== END 2021-10-20 21:20 | disposition home or self-care (01) ==
PROVIDERS: Emergency Medicine; Emergency Provider Emergency Medicine; PCP Family Medicine
DX: R41.82 Altered mental status, unspecified (principal); F22 Delusional disorders
CPT/HCPCS: 70450; 71045; 74177; 80053; 80306; 80307; 81001; 83605; 83690; 84443; 85025; 87426; 93005; 99283; Q9967

== ENCOUNTER 2022-02-04 15:55 | Inpatient (IN) | payer MEDICARE, MEDICAID, SELFPAY ==
--- NOTE | 2022-02-04 15:59 | CTR_ITS ---
PROCEDURE INFORMATION: Exam: CT Head Without Contrast Exam date and time: 02/04/2022 4:40 PM Age: 62 years old Clinical indication: Altered mental status/memory loss; Confusion or disorientation; Additional info: AMS TECHNIQUE: Imaging protocol: Computed tomography of the head without contrast. Radiation optimization: All CT scans at this facility use at least one of these dose optimization techniques: automated exposure control; mA and/or kV adjustment per patient size (includes targeted exams where dose is matched to clinical indication); or iterative reconstruction. COMPARISON: CT head wo con* [id number] 10/20/2021 5:53 PM RADIATION DOSE METRICS: Total DLP (mGy-cm): 982.44 FINDINGS: Brain: The sulci are within normal limits. Mild hypodensities in supratentorial periventricular and subcortical white matter, consistent with microangiopathy. No intracranial hemorrhage. Cerebral ventricles: No ventriculomegaly. Paranasal sinuses: Postsurgical changes of the right maxillary sinus. Mucosal thickening in the right maxillary sinus. Polyps or retention cysts in the left maxillary sinus. The other sinuses are clear. Mastoid air cells: Visualized mastoid air cells are well aerated. Vasculature: No hyperdense artery. Bones/joints: Hyperostosis frontalis. No fracture. Soft tissues: Unremarkable. CT/CT head wo con* [id number] IMPRESSION: 1. No acute intracranial abnormality. 2. Inflammatory changes of the sinuses.
--- NOTE | 2022-02-04 16:03 | ED_ITS ---
HPI - General Adult General: Chief complaint: Psychiatric Symptoms Stated complaint: PSYCH EVAL Time Seen by Provider: 02/04/22 15:56 History of Present Illness: HPI: [62]yo patient w/ hx of depression BIBA for worsening delusion and paranoia. Patient tells me that Hugh wants to kill me. for On arrival, the patient is AAOx3 and cooperative with my evaluation. No focal complaints of chest pain, shortness of breath, palpitations, N/V, focal GI/ complaints. Currently denies SI/HI. No complaints of hallucinations. Onset: acute Duration: ongoing Location: home Severity: severe Associated symptoms: Deny chest pain, dyspnea, nausea, rash, palpitations or vomiting Review of Systems Const: Denies: fever(s) or chills Eyes: Denies: change in vision ENMT: Denies: mouth pain Card: Denies: chest pain or palpitations Resp: Denies: dyspnea or non-productive cough GI: Denies: abdominal pain, nausea, vomiting or diarrhea : Denies: dysuria Musc: Denies: extremity pain Skin/Breast: Denies: rash or new lesions Neuro: Denies: weakness in extremities Psych: Reports: other (Normal mood) Chris/Lymph: Denies: easy bruising PFSH ED PFSH: Medical History (Updated 02/04/22 @ 16:18 by Bisi Styles MD) Schizophrenia Social History (Updated 02/04/22 @ 16:04 by Bisi Styles MD) Smoking and tobacco status: never smoked Alcohol intake: never Substance/Drug Use: never Physical Exam Const: COMMON NORMALS: alert HENMT: COMMON NORMALS: atraumatic HEAD & SCALP: atraumatic MOUTH: moist mucous membranes not abnormal Eye: COMMON NORMALS: EOMs intact bilaterally and conjunctivae normal CONJUNCTIVA: Yes conjunctivae normal Neck/C-Spine: COMMON NORMALS: full ROM and supple Resp: COMMON NORMALS: normal respiratory effort and clear to auscultation bilaterally AUSCULTATION: clear to auscultation bilaterally Cardio: COMMON NORMALS: regular rate RATE: regular rate GI: COMMON NORMALS: Soft to palpation and non-tender PALPATION: Yes Soft to palpation Extremity: COMMON NORMALS: full ROM Neuro: SENSORIUM/ORIENTATION: Yes alert MOTOR EXAM: No Abnormal motor strength present and Other motor observations present (no focal motor deficits) Psych: COMMON NORMALS: cooperative MOOD & AFFECT: Yes fearful Course Vital Signs: Vital signs: Vital Signs Temperature 97.3 F L 02/05/22 06:00 Pulse Rate 73 02/05/22 06:00 Respiratory Rate 18 02/05/22 06:00 Blood Pressure 118/79 02/05/22 06:00 Pulse Oximetry 95 02/05/22 06:00 MDM - General Adult Medical Decision Making [62]yo patient w/ hx of schizophrenia presenting for acute paranoia and delusion. HDS, exam within normal limit Thoughts are not organized, and the patient has no AH/VH, or HI. Clinically the patient displays no overt toxidrome; they are well appearing, with low suspicion for toxic ingestion given history and exam. Symptoms unlikely 2/2 anemia, hypothyroidism, infection, or ICH. Workup: CBC, CMP, Lipase, salicylate/tylenol, TSH/free T4, UDS, CT head Lab findings: wnl [5:30pm] On reassessment, labs and workup wnl. Patient is hemodynamically stable with no acute medical complaints. Case discussed with psychiatric provider Dr. Chan at [facility] psych inpatient with recommendation for admission Disposition: Psych Lab Data : 02/04/22 16:37 02/04/22 16:[address] 02/04/22 15:59 IMPRESSION: 1. No acute intracranial abnormality. 2. Inflammatory changes of the sinuses. Laboratory Results WBC 8.5 10^3/uL (4.0-10.0) 02/04/22 16:37 RBC 4.50 10^6/uL (4.1-5.3) 02/04/22 16:37 Hgb 13.3 g/dL (11.5-15.3) 02/04/22 16:37 Hct 39.9 % (37.0-47.0) 02/04/22 16:37 MCV 88.7 fl (81-99) 02/04/22 16:37 MCH 29.6 pg (28.0-34.0) 02/04/22 16:37 MCHC 33.3 g/dL (30.0-36.0) 02/04/22 16:37 RDW 13.2 % (12.1-15.1) 02/04/22 16:37 Plt Count 237 10^3/cmm (130-400) 02/04/22 16:37 MPV 10.7 fL (7.4-10.4) H 02/04/22 16:37 Neut % (Auto) 58.9 % 02/04/22 16:37 Lymph % (Auto) 31.8 % 02/04/22 16:37 Coffee % (Auto) 8.2 % 02/04/22 16:37 Eos % (Auto) 0.5 % 02/04/22 16:37 Baso % (Auto) 0.2 % 02/04/22 16:37 Neut # (Auto) 5.01 10^3/uL (1.8-7.7) 02/04/22 16:37 Lymph # (Auto) 2.7 10^3/uL (0.8-4.8) 02/04/22 16:37 Coffee # (Auto) 0.7 10^3/uL (0.2-0.9) 02/04/22 16:37 Eos # (Auto) 0.0 10^3/uL (0.0-0.8) 02/04/22 16:37 Baso # (Auto) 0.0 10^3/uL (0.0-0.1) 02/04/22 16:37 Nucleated RBC % (auto) 0 % 02/04/22 16:37 Nucleated RBCs # 0.0 /100WBC 02/04/22 16:37 Sodium 138 mmol/L (136-145) 02/04/22 16:37 Potassium 3.9 mmol/L (3.5-5.1) 02/04/22 16:37 Chloride 104 mmol/L (98-107) 02/04/22 16:37 Carbon Dioxide 26 mmol/L (22-29) 02/04/22 16:37 Anion Gap 11.9 (5-19) 02/04/22 16:37 BUN 11 mg/dL (8-23) 02/04/22 16:37 Creatinine 0.6 mg/dL (0.5-0.9) 02/04/22 16:37 GFR Calculation 100.6 mL/min (90-130) 02/04/22 16:37 Glucose 125 mg/dL (65-115) H 02/04/22 16:37 Calculated Osmolality 287 mOsm/kg (285-295) 02/04/22 16:37 Calcium 9.4 mg/dL (8.5-10.5) 02/04/22 16:37 Total Bilirubin 0.3 mg/dL (0.15-1.2) 02/04/22 16:37 AST 15 U/L (0-32) 02/04/22 16:37 ALT 22 U/L (0-33) 02/04/22 16:37 Alkaline Phosphatase 77 IU/L (35-105) 02/04/22 16:37 Total Protein 6.3 g/dL (6.6-8.7) L 02/04/22 16:37 Albumin 4.2 g/dL (3.5-5.2) 02/04/22 16:37 Globulin 2.1 g/dL (1.3-4.6) 02/04/22 16:37 Lipase 30 U/L (13-60) 02/04/22 16:37 TSH 1.38 uIU/mL (0.27-4.20) 02/04/22 16:37 Free T4 1.31 ng/dL (0.82-1.77) 02/04/22 16:37 Urine Color Straw (Yellow) 02/04/22 16:15 Urine Appearance Clear (CLEAR) 02/04/22 16:15 Urine pH 6.5 (5-7) 02/04/22 16:15 Ur Specific [place] 1.005 (1.005-1.030) 02/04/22 16:15 Urine Protein Neg (Negative) 02/04/22 16:15 Urine Glucose (UA) Norm (Normal) 02/04/22 16:15 Urine Ketones Negative (Negative) 02/04/22 16:15 Urine Blood Neg (Negative) 02/04/22 16:15 Urine Nitrate Negative (Negative) 02/04/22 16:15 Urine Bilirubin Neg (Negative) 02/04/22 16:15 Urine Urobilinogen Norm mg/dL (Negative) 02/04/22 16:15 Ur Leukocyte Esterase Negative (Negative) 02/04/22 16:15 Salicylates < 0.3 mg/dL (3-10) L 02/04/22 16:37 Urine Opiates Screen Negative ng/mL (Negative) 02/04/22 16:15 Acetaminophen < 5.0 ug/mL (10-30) L 02/04/22 16:37 Ur Barbiturates Screen Negative ng/mL (Negative) 02/04/22 16:15 Ur Phencyclidine Scrn Negative ng/mL (Negative) 02/04/22 16:15 Ur Amphetamines Screen Negative ng/mL (Negative) 02/04/22 16:15 U Benzodiazepines Scrn Negative ng/mL (Negative) 02/04/22 16:15 Urine Cocaine Screen Negative ng/mL (Negative) 02/04/22 16:15 U Marijuana (THC) Screen Negative ng/mL (Negative) 02/04/22 16:15 Imaging Data Other Imaging: Radiologist's impression: [facility] [place] [address] CT Scan Report Signed Patient: Jenniffer Hollingsworth Unit #: [id number] : 1960 Age/Sex: 62 / F ADM Date: 02/04/22 Loc: ER Room/Bed: Attending Dr: Ordering Provider/Ordering MD: Bisi Styles MD Date of Service: 02/04/22 Procedure(s): CT head wo con* [id number] Accession Number(s): [id number] Report Number: [id number] PROCEDURE INFORMATION: Exam: CT Head Without Contrast Exam date and time: 02/04/2022 4:40 PM Age: 62 years old Clinical indication: Altered mental status/memory loss; Confusion or disorientation; Additional info: AMS TECHNIQUE: Imaging protocol: Computed tomography of the head without contrast. Radiation optimization: All CT scans at this facility use at least one of these dose optimization techniques: automated exposure control; mA and/or kV adjustment per patient size (includes targeted exams where dose is matched to clinical indication); or iterative reconstruction. COMPARISON: CT head wo con* [id number] 10/20/2021 5:53 PM RADIATION DOSE METRICS: Total DLP (mGy-cm): 982.44 FINDINGS: Brain: The sulci are within normal limits. Mild hypodensities in supratentorial periventricular and subcortical white matter, consistent with microangiopathy. No intracranial hemorrhage. Cerebral ventricles: No ventriculomegaly. Paranasal sinuses: Postsurgical changes of the right maxillary sinus. Mucosal thickening in the right maxillary sinus. Polyps or retention cysts in the left maxillary sinus. The other sinuses are clear. Mastoid air cells: Visualized mastoid air cells are well aerated. Vasculature: No hyperdense artery. Bones/joints: Hyperostosis frontalis. No fracture. Soft tissues: Unremarkable. CT/CT head wo con* [id number] IMPRESSION: 1. No acute intracranial abnormality. 2. Inflammatory changes of the sinuses. ? Dictated By: Adebayo Stuart Signed By: Adebayo Stuart Signed Date/Time: 02/04/22 1717 DD/ 1640 Discharge Plan Discharge Patient Disposition: Admitted As Inpatient Admit Provider: Adam Chan Clinical Impression: Delusion, Paranoia Condition: Stable Coding Level of Care Code ED Hand Braille Transcriber for Magdaleneg Fwd Exam Comprehensive
[2022-02-04 16:04] VITALS: BP 115/82; PULSE 70; RESP 15; O2SAT 96; BMI 38.2
[2022-02-04 16:26] LABS: Add Urine Microscopic? NO; Charge for UA Resulting for Rev
[2022-02-04 16:29] LABS: Urine Appearance Clear (CLEAR); Urine Color Straw (Yellow); pH Urine 6.5 (5-7)
[2022-02-04 16:30] LABS: Bilirubin Urine Neg (Negative); Blood Urine Neg (Negative); Glucose Urine UA Norm (Normal); Ketones Urine Negative (Negative); Leukocyte Esterase Urine Negative (Negative); Nitrate Urine Negative (Negative); Protein Urine Neg (Negative); Specific Gravity, Urine 1.005 (1.005-1.030); Urobilinogen Urine Norm (Negative)
[2022-02-04 16:36] LABS: Amphetamines Screen Urine Negative (Negative); Barbiturates Screen Urine Negative (Negative); Benzodiazepines Screen Urine Negative (Negative); Cocaine Screen Urine Negative (Negative); Opiate Screen Urine Negative (Negative); PCP Screen Urine Negative (Negative); THC Screen Urine Negative (Negative)
[2022-02-04] MEDS: LORazepam 1 mg Tablet PO (16:54)
[2022-02-04 16:55] VITALS: BP 120/74; PULSE 72; RESP 15; O2SAT 97
[2022-02-04 17:10] LABS: Basophils % 0.2 %; Eosinophils % 0.5 %; Hematocrit 39.9 % (37.0-47.0); Hemoglobin 13.3 g/dL (11.5-15.3); Lymphocytes # 2.7 10^3/uL (0.8-4.8); Lymphocytes % 31.8 %; Mean Corpuscular HGB Conc 33.3 g/dL (30.0-36.0); Mean Corpuscular Hemoglobin 29.6 pg (28.0-34.0); Mean Corpuscular Volume 88.7 fl (81-99); Mean Platelet Volume 10.7 fL (7.4-10.4); Monocytes # 0.7 10^3/uL (0.2-0.9); Monocytes % 8.2 %; Neutrophils # 5.01 10^3/uL (1.8-7.7); Neutrophils % 58.9 %; Nucleated Red Blood Cells % 0 %; Platelet Count 237 10^3/cmm (130-400); Red Cell Distribution Width 13.2 % (12.1-15.1); White Blood Count 8.5 10^3/uL (4.0-10.0)
[2022-02-04 17:53] LABS: Alanine Aminotransferase 22 U/L (0-33); Albumin Level 4.2 g/dL (3.5-5.2); Alkaline Phosphatase 77 IU/L (35-105); Anion Gap 11.9 (5-19); Aspartate Amino Transferase 15 U/L (0-32); Blood Urea Nitrogen 11 mg/dL (8-23); Calcium 9.4 mg/dL (8.5-10.5); Carbon Dioxide 26 mmol/L (22-29); Chloride 104 mmol/L (98-107); Free T4 Free Thyroxine 1.31 ng/dL (0.82-1.77); Globulin 2.1 g/dL (1.3-4.6); Glomerular Filtration Rate 100.6 mL/min (90-130); Glucose 125 mg/dL (65-115); Lipase 30 U/L (13-60); Osmolality Calculated 287 mOsm/kg (285-295); Potassium 3.9 mmol/L (3.5-5.1); Sodium 138 mmol/L (136-145); Thyroid Stimulating Hormone 1.38 uIU/mL (0.27-4.20); Total Bilirubin 0.3 mg/dL (0.15-1.2); Total Protein 6.3 g/dL (6.6-8.7)
[2022-02-04 18:11] LABS: Acetaminophen < 5.0 ug/mL (10-30); Salicylate < 0.3 mg/dL (3-10)
[2022-02-04 19:35] VITALS: BP 117/75; PULSE 70; RESP 16; O2SAT 97
[2022-02-04 19:36] VITALS: BP 125/86; PULSE 76; RESP 18; TEMP 36.7; O2SAT 98
[2022-02-04] MEDS: CLONazepam 0.5 mg Tablet PO (20:52)
[2022-02-04 23:15] VITALS: BMI 34.9
[2022-02-05 06:00] VITALS: BP 118/79; PULSE 73; RESP 18; TEMP 36.3; O2SAT 95; BMI 34.9
--- NOTE | 2022-02-05 06:22 | PC.ADMIT ---
50 [facility] Admission Note: The patient,Jenniffer Hollingsworth,62 y/o, was given written information regarding hospital policies, unit procedures and contact persons. Patient's smoking status: never smoked. Patient came into ED tonight and stated The devil is after me. About a month ago he sent me a photo of himself to my text message and has been after me since. Patient denies seeing or hearing the devil and would only reiterate the same statements. Patient Alert and oriented x4, answers all questions appropriately but does seem hard of hearing at times. Patient is edentulous and left dentures at home and wears glasses, denies using or needing hearing aids. Patient states she does have home health that visits her 3x weekly to help with housework and cooking, and states she has a hard time cooking for her and her but is independent in all other ADLs. Patient denies substance abuse but states she attempted to OD on a bottle of aspirin about 10 yrs ago. Denies seeing outpt psyc and previous psych admissions. When asked about appetite patient states she is hungry but when she eats it gets to my stomach and its gone. It just disappears, like magic, so I can't eat. Patient denies diarrhea, indigestion, or stomach issues when eating, just reiterates It just disappears.
[2022-02-05] MEDS: pantoprazole DR 40 mg Tablet PO ×2 (06:51→16:14)
[2022-02-05] MEDS: sucralfate 1 gm Tablet PO ×3 (06:51→16:14)
--- NOTE | 2022-02-05 08:54 | W.PM.NPUH&PS ---
Providers/Chief Complaint Admitting Physician: Adam Chan MD Primary Care Provider: Talat Ayala Chief Complaint: PSYCH EVAL HPI NPU History of Present Illness Jenniffer Hollingsworth is a 62 year old female who presented to the emergency department with the following report: Chief complaint: Psychiatric Symptoms Stated complaint: PSYCH EVAL Time Seen by Provider: 02/04/22 15:56 History of Present Illness:?? HPI: [62]yo patient w/ hx of depression BIBA for worsening delusion and paranoia.? Patient tells me that Hugh wants to kill me. for On arrival, the patient is AAOx3 and cooperative with my evaluation. No focal complaints of chest pain, shortness of breath, palpitations, N/V, focal GI/ complaints. Currently denies SI/HI. No complaints of hallucinations. Onset: acute Duration: ongoing Location: home Severity: severe Associated symptoms: Deny chest pain, dyspnea, nausea, rash, palpitations or vomiting She was admitted to the neuropsychiatric unit for definitive treatment of those issues. She presents as a fairly poor historian secondary to possible dementia which it appears she carried since at least 2011. She reports that she has been psychiatrically hospitalized twice but she has been hospitalized at least 9 or 10 times here at [facility]. She reports that she was hospitalized about 5 years ago in [place] and had been living closer to [place] which may be why she is not showing up in the system after 2011 here and then showed back up in some capacity in 2019 but has not been engaged in psychiatric services that can be seen in the system. She has had outpatient services at [facility] which went until around 2012 after which she must have moved because she has not been in psychiatric services in the system since then. She is currently on medication and says she has been on medication for a while but is experiencing current breakthrough symptoms reportedly on the medications. She denies tobacco, alcohol, marijuana or any other illicit drug use. She has not been to rehab or had any DUIs. She reports that her psychiatric concerns started recently but we can see psychiatric treatment going back at least to 2004. It is likely that she has been getting treatment in [place] and that is where her medications are probably being managed but she doesn?t know when she moved to [place] and overall is a poor historian likely secondary to this dementing condition with reports that she was on Aricpt and Nanemda as far back as 2011. She reports the reason why she is here is because the devil has a picture on her phone and she came here to see if it could be taken off. She reports that she did have a suicide attempt 5 years ago which sent her to [facility] and according to the system she had what was ken to a suicidal gesture prior to 2011. She denies any history of self-injurious behaviors. We discussed the risks, benefits and alternatives of us getting some collateral information to figure out what has been going on with medication and find out why she possibly stopped Abilify in the past or see if she has been on something like Invega to possibly replace her current medications versus increase the dose of her current medications which include Lexapro and Risperdal. Additionally we discussed the fact that she is on Klonopin 0.5mg tid and that might also be causing some of the problems she is having and will get collateral information to make decisions about that but she agreed to proceed as is documented in this note. Psychiatric History: As above. Substance Abuse History: As above Family History: She does report mental health issues on her mother?s side of the family, denies any addiction on either side of the family, and does have chart history of a suicide attempt by a cousin. Developmental History: She denied any issues with her , learned to walk and talk and met her developmental milestones on time, and does report that she had speech therapy and special education course work. Psychosocial History: She reports that she had four siblings, two brother and two sisters and she was the third. She reports that he dad adopted 2 other children. She denied that either of her parents had any other children. She reports that her childhood was good and denied any sexual, physical or emotional abuse. She denies any CYS involvement or other traumatic events. She reports the highest grade she achieved was the 8th grade though past records suggest that she maybe made it to the 9th. She never got her GED. She endorses being heterosexual with her longest relationship being 18 years. She initially said she was only one time but later brought up she was living with her and was able to come to the conclusion that she was twice, first marriage reportedly ended when her and she was but she has no recollection of when that happened. She has 3 children, 2 boys and 1 girl. Initially she was giving their ages as 18, 17 and 12 but eventually was able to come around and identify that they were in their 40s and one might be in his 30s. 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 She currently lives in an apartment reportedly with her . Legal History: Denied. Medical History: She has carried this diagnosis of mild dementia for some time, has had a hysterectomy, GERD, hiatal hernia, and hypercholesterolemia. Meds NPU Home Medications Medication Instructions Recorded Confirmed Last Taken Type clonazepam 0.5 mg tablet 0.5 mg PO TID 09/08/20 02/04/22 Unknown History sucralfate 1 gram tablet 1 g PO 07,11,16 09/08/20 02/05/22 Unknown History atorvastatin 10 mg tablet 10 mg PO BEDTIME 02/04/22 02/04/22 Unknown History escitalopram oxalate 10 mg tablet 10 mg PO DAILY 02/04/22 02/04/22 Unknown History lithium carbonate 300 mg capsule 300 mg PO ,02/04/22 02/04/22 Unknown History metoprolol tartrate 25 mg tablet 25 mg PO ,02/04/22 02/04/22 Unknown History pantoprazole 40 mg tablet,delayed 40 mg PO 07,16 02/04/22 02/05/22 Unknown History release risperidone 1 mg tablet 1 mg PO ,02/04/22 02/04/22 Unknown History Allergies Allergy/AdvReac Type Severity Reaction Status Date / Time No Known Allergies Allergy Verified 10/20/21 15:42 PFS NPU PFSH: Medical History (Updated 02/05/22 @ 15:29 by Adam Chan MD) Schizophrenia Social History (Updated 02/04/22 @ 16:04 by Bisi Styles MD) Smoking and tobacco status: never smoked Alcohol intake: never Substance/Drug Use: never Mental Status Exam MSE Comments: This is a overweight versus obese elderly white female looking older than her stated age with hospital scrubs on with limited grooming and eye contact. No abnormal movements except for psychomotor retardation. Cooperative with exam in mild distress. Speech was decreased rate and volume. Mood described as ?not too good?, affect subdued. Thought process, organized to some degree with some confusion and misinformation. Thought content: patient denied suicidal or homicidal ideation, but did report that the devil wants her , no delusions reported but issues with hyperreligious, paranoid delusions existed. She did endorse hearing and seeing things. Attention and concentration were limited and memory was intermittently reliable but none were formally tested. She is alert and oriented three times. Insight and judgment are imparied. Impulse control is impaired. Vitals/I&O/Wt Last Vital Signs Temp 97.3 F L 02/05/22 06:00 Pulse 73 02/05/22 06:00 Resp 18 02/05/22 06:00 BP 118/79 02/05/22 06:00 Pulse Ox 95 02/05/22 06:00 Weight last 48 hrs Weight 89.414 kg Weight 89.414 kg Weight 97.976 kg Data NPU : 02/04/22 16:37 02/04/22 16:37 A&P Assessment and plan (1) Delusion: Status: Acute (2) Paranoia: Status: Acute (3) Pneumonia due to 2019 novel coronavirus: Status: Acute (4) Dementia: Status: Acute (5) Schizoaffective disorder: Status: Acute Plan This is a 62 year old white female with a long history of mental health treatment and diagnosis of major depressive disorder with psychosis and schizoaffective disorder as well as dementia who presents with some delusions thinking and question of delusion versus delirium versus dementia, likely needing to discontinue her benzodiazepines given the impact that could have on her cognitive functioning. Continue current medications. We will need to get collateral information and start some process of discontinuing the benzodiazepine/Klonopin. Additionally, we will try to get some history on her mood stabilizers and antipsychotic medications to see if we are at the point where we could increase the medication or change it. Encourage individual, group and milieu therapy Continue q-15 minute check for safety Try to get collateral information in regards to what has been going on with her psychiatrically since she stopped being seen in this area since 2011. Involuntary Hold Information 96 Hour Hold: 96 Hour Involuntary Admission: No Attestations NPU Medical Necessity Statement*: Inpatient hospitalization is medically necessary and the clinically appropriate intervention at this time. We will monitor medications and make changes as indicated. Patient will be in the hospital for over two midnights. Likely length of stay is four to six days. Coding Level of Care Code Acute Reverse Unit Operator Fisherman for Chg Fwd Diagnoses Delusion F22 Paranoia F22 Pneumonia due to 2019 novel coronavirus U07.1; J12.89 Dementia F03.90 Schizoaffective disorder F25.9
[2022-02-05] MEDS: metoprolol tartrate 25 mg Tablet PO ×2 (09:21→20:13)
[2022-02-05] MEDS: escitalopram 10 mg Tablet PO (09:21)
[2022-02-05] MEDS: risperiDONE 1 mg Tablet PO ×2 (09:22→20:13)
[2022-02-05] MEDS: CLONazepam 0.5 mg Tablet PO ×3 (09:22→20:13)
[2022-02-05] MEDS: lithium carbonate 300 mg Capsule PO ×2 (09:22→20:12)
--- NOTE | 2022-02-05 09:37 | PC.NURSE ---
Pt laying in bed upon assessing. Denies SI. States she is having homicidal ideations regarding . Denies plan. States the devil has got me I guess. Denies pain.
[2022-02-05 14:00] VITALS: BP 142/87; PULSE 72; RESP 18; TEMP 36.6; O2SAT 97
[2022-02-05] MEDS: atorvastatin 40 mg Tablet 10 MG PO (20:12)
[2022-02-05 20:16] VITALS: BP 121/86; PULSE 76; RESP 18; TEMP 36.8; O2SAT 94
[2022-02-05] MEDS: docusate sodium 100 mg Capsule PO (20:40)
[2022-02-05] MEDS: hyDROXYzine 25 mg Capsule 50 MG PO (20:40)
--- NOTE | 2022-02-05 20:44 | PC.NURSE ---
Patient came to the nurses station very upset and crying. She believes the devil is on his way to get her. She wants to stay in the nurses station so she will feel safe. I walked her down to her room and visited with her for a short period of time and told her we do 15 minutes checks and she is safe here. She calmed down and was given Visteril. She was resting in bed when I left her room.
[2022-02-06 06:00] VITALS: BP 118/74; PULSE 81; RESP 17; TEMP 36.8; O2SAT 94
[2022-02-06] MEDS: pantoprazole DR 40 mg Tablet PO ×2 (06:03→15:26)
[2022-02-06] MEDS: sucralfate 1 gm Tablet PO ×3 (06:03→15:26)
[2022-02-06] MEDS: risperiDONE 1 mg Tablet PO ×2 (08:58→20:15)
[2022-02-06] MEDS: escitalopram 10 mg Tablet PO (08:58)
[2022-02-06] MEDS: metoprolol tartrate 25 mg Tablet PO ×2 (08:58→20:15)
[2022-02-06] MEDS: CLONazepam 0.5 mg Tablet PO ×3 (08:58→20:15)
[2022-02-06] MEDS: lithium carbonate 300 mg Capsule PO ×2 (08:58→20:15)
[2022-02-06] MEDS: OLANZapine 5 mg ODT PO (11:53)
--- NOTE | 2022-02-06 11:57 | PC.NURSE ---
PRN ZYPREXA ZYDIS 5 MG GIVEN PO PER PT C/O AGITATION. PT TOLD OTHER FLOOR NURSE SHE FELT LIKE SHE COULD HURT SOMEBODY
[2022-02-06 14:00] VITALS: BP 116/82; PULSE 85; RESP 20; TEMP 36.6; O2SAT 96
--- NOTE | 2022-02-06 17:27 | P.NPUPN_ITS ---
Subjective NPU Subjective: Patient presents today continuing to have some level confusion and reporting that she has concerns about Satan and things of that nature. We discussed at length a plan to decrease her clonazepam once we get a sense of how she has been taking it. She says she has been on it for about 4 years. We discussed that we have reached out to the outside provider to give us some direction on the antipsychotic as she historically has had psychosis in the past. We also discussed having her significant other call when she speaks to him so that we can get some collateral information from him. She denies having any issues other than these thoughts. Mental Status Exam MSE Comments: This is a overweight versus obese elderly white female looking older than her stated age with hospital scrubs on with limited grooming and eye contact at times appearing disheveled. No abnormal movements except for psyc homotor retardation. Cooperative with exam in mild distress. Speech was decreased rate and volume. Mood described as not good, affect subdued. Thought process, organized to some degree with some confusion and misinformation. Thought content: patient denied suicidal or homicidal ideation, but did report that the devil wants her , no delusions reported but issues with hyperreligious, paranoid delusions existed. She did endorse hearing and seeing things. Attention and concentration were limited and memory was intermittently reliable but none were formally tested. She is alert and oriented three times. Insight and judgment are imparied. Impulse control is impaired. Vitals/I&O/Wt Last Vital Signs Temp 98.0 F 02/06/22 20:22 Pulse 72 02/06/22 20:22 Resp 18 02/06/22 20:22 BP 104/69 02/06/22 20:22 Pulse Ox 96 02/06/22 20:22 Weight last 48 hrs Weight 89.414 kg Weight 89.414 kg Data NPU : 02/04/22 16:37 02/04/22 16:37 A&P Assessment and plan (1) Schizoaffective disorder: Status: Acute (2) Dementia: Status: Acute (3) Delusion: Status: Acute (4) Paranoia: Status: Acute Plan This is a 62 year old white female with a long history of mental health treatment and diagnosis of major depressive disorder with psychosis and schizoaffective disorder as well as dementia who presents with some delusions thinking and question of delusion versus delirium versus dementia, likely needing to discontinue her benzodiazepines given the impact that could have on her cognitive functioning. Continue current medications. We will need to get collateral information and start some process of discontinuing the benzodiazepine/Klonopin. Additionally, we will try to get some history on her mood stabilizers and antipsychotic medications to see if we are at the point where we could increase the medication or change it. Encourage individual, group and milieu therapy Continue q-15 minute check for safety Try to get collateral information in regards to what has been going on with her psychiatrically since she stopped being seen in this area since 2011. Involuntary Hold Information 96 Hour Hold: 96 Hour Involuntary Admission: No Attestations NPU Medical Necessity Statement*: Inpatient hospitalization is medically necessary and the clinically appropriate intervention at this time. We will monitor medications and make changes as indicated.Likely length of stay is 3-5 days. Coding Level of Care Code Acute Custodial Services Manager for Vicki Bach Diagnoses Schizoaffective disorder F25.9 Dementia F03.90 Delusion F22 Paranoia F22
[2022-02-06] MEDS: atorvastatin 40 mg Tablet 10 MG PO (20:14)
[2022-02-06] MEDS: docusate sodium 100 mg Capsule PO (20:15)
[2022-02-06] MEDS: hyDROXYzine 25 mg Capsule 50 MG PO (20:15)
[2022-02-06 20:22] VITALS: BP 104/69; PULSE 72; RESP 18; TEMP 36.7; O2SAT 96
--- NOTE | 2022-02-06 20:51 | PC.NURSE ---
Patient was anxious at the beginning of the shift that the devil was coming to get her. She was reassured all of the doors are locked and staff completed 15 minute rounds. Visteril was given. She is now resting in bed with her eyes closed
[2022-02-07 06:00] VITALS: BP 112/78; PULSE 75; RESP 16; TEMP 36.7; O2SAT 95
[2022-02-07] MEDS: sucralfate 1 gm Tablet PO ×3 (06:15→17:31)
[2022-02-07] MEDS: pantoprazole DR 40 mg Tablet PO ×2 (06:15→17:31)
--- NOTE | 2022-02-07 08:06 | W.PM.NPUPNS ---
Subjective NPU Subjective: Patient presents today continuing to discuss the devil and fear of going home secondary to not wanting to kill her . She discussed anxiety and these intrusive thoughts surrounding the devil. We ultimately discussed the risk-benefit and alternatives of a trial of Invega and she understood and agreed to proceed as is documented in his note. We continue to discuss the likelihood of a possible Klonopin taper of some sort once she is just to the Invega and the discontinuation of Risperdal. Mental Status Exam MSE Comments: This is a overweight versus obese elderly white female looking older than her stated age with hospital scrubs on with limited grooming and eye contact at times appearing disheveled.? No abnormal movements except for psychomotor retardation. Cooperative with exam in mild distress. Speech was decreased rate and volume. Mood described as anxious, affect subdued. Thought process, organized to some degree with some confusion and misinformation. Thought content: patient denied suicidal but continued to discuss homicidal thoughts surrounding her , no delusions reported but issues with hyperreligious, paranoid delusions existed. She did endorse hearing and seeing things. Attention and concentration were limited and memory was intermittently reliable but none were formally tested. She is alert and oriented three times. Insight and judgment are impaired. Impulse control is impaired. Vitals/I&O/Wt Last Vital Signs Temp 98.0 F 02/07/22 06:00 Pulse 75 02/07/22 06:00 Resp 16 02/07/22 06:00 BP 112/78 02/07/22 06:00 Pulse Ox 95 02/07/22 06:00 Data NPU : 02/04/22 16:37 02/04/22 16:37 A&P Assessment and plan (1) Schizoaffective disorder: Status: Acute (2) Dementia: Status: Acute (3) Delusion: Status: Acute (4) Paranoia: Status: Acute Plan This is a 62 year old white female with a long history of mental health treatment and diagnosis of major depressive disorder with psychosis and schizoaffective disorder as well as dementia who presents with some delusions thinking and question of delusion versus delirium versus dementia, likely needing to discontinue her benzodiazepines given the impact that could have on her cognitive functioning. Continue current medications. We will need to get collateral information and start some process of discontinuing the benzodiazepine/Klonopin. We will discontinue Risperdal and start Invega 6 mg p.o. daily. Encourage individual, group and milieu therapy Continue q-15 minute check for safety Try to get collateral information in regards to what has been going on with her psychiatrically since she stopped being seen in this area since 2011. Involuntary Hold Information 96 Hour Hold: 96 Hour Involuntary Admission: No Attestations NPU Medical Necessity Statement*: Inpatient hospitalization is medically necessary and the clinically appropriate intervention at this time. We will monitor medications and make changes as indicated. Likely length of stay is 3-5 days. Coding Level of Care Code Acute Program Production Specialist for [facility] Fwd Diagnoses Schizoaffective disorder F25.9 Dementia F03.90 Delusion F22 Paranoia F22
[2022-02-07] MEDS: metoprolol tartrate 25 mg Tablet PO ×2 (08:25→20:43)
[2022-02-07] MEDS: risperiDONE 1 mg Tablet PO ×2 (08:25→20:43)
[2022-02-07] MEDS: CLONazepam 0.5 mg Tablet PO ×3 (08:25→20:43)
[2022-02-07] MEDS: escitalopram 10 mg Tablet PO (08:25)
[2022-02-07] MEDS: lithium carbonate 300 mg Capsule PO ×2 (08:25→20:45)
[2022-02-07 14:00] VITALS: BP 106/55; PULSE 71; RESP 16; TEMP 36.6; O2SAT 96
[2022-02-07] MEDS: paliperidone ER 6 mg Tablet PO (17:30)
[2022-02-07] MEDS: docusate sodium 100 mg Capsule PO (20:43)
[2022-02-07] MEDS: atorvastatin 40 mg Tablet 10 MG PO (20:43)
[2022-02-07 22:00] VITALS: BP 91/60; PULSE 79; RESP 18; TEMP 36.8; O2SAT 96
[2022-02-08 06:00] VITALS: BP 105/72; PULSE 77; RESP 16; TEMP 36.6; O2SAT 94
[2022-02-08] MEDS: sucralfate 1 gm Tablet PO ×3 (06:30→16:34)
[2022-02-08] MEDS: pantoprazole DR 40 mg Tablet PO ×2 (06:30→16:34)
[2022-02-08] MEDS: metoprolol tartrate 25 mg Tablet PO ×2 (08:44→21:14)
[2022-02-08] MEDS: escitalopram 10 mg Tablet PO (08:44)
[2022-02-08] MEDS: CLONazepam 0.5 mg Tablet PO ×3 (08:44→21:15)
[2022-02-08] MEDS: paliperidone ER 6 mg Tablet PO (08:44)
[2022-02-08] MEDS: lithium carbonate 300 mg Capsule PO ×2 (08:44→21:15)
--- NOTE | 2022-02-08 09:33 | PC.NURSE ---
PT REMAINS IN BED THIS MORNING. WAKEN FOR AM MEDS. ANSWERS TO QUESTIONS DELAYED BUT APPROPRIATE TO SUBJECT ALTHOUGH ONLY ONE WORD ANSWERS OF YES AND NO. DENIES ANY SI/HI, AVH, OR PARANOIA THIS MORNING. NO PARANOIA DISPLAYED TO NURSE AT THIS TIME. RETURNED TO RESTING WITH EYES CLOSED SOON TOOK MEDS.
[2022-02-08] MEDS: OLANZapine 5 mg ODT PO (11:15)
--- NOTE | 2022-02-08 11:41 | NPU.GN ---
[facility] Topic:Deja Walker General Mood of Group: Patient did not attend group today.
[2022-02-08] MEDS: haloperidol 5 mg Tablet PO (12:11)
--- NOTE | 2022-02-08 12:54 | PC.NURSE ---
PT TO NURSES STATION WITH REPORTS OF AH OF THE DEVIL AND FEELING LIKE SHE MAY HIT SOMEONE. PRN ZYDIS GIVEN AT 1115. PT ATE LUNCH. BACK TO REPORT THAT MEDICATION WAS NOT EFFECTIVE AND CONTINUED HAVING AH AND FEELINGS OF AGGRESSION. PRN HALDOL GIVE AT 1212. PT NOW RESTING CALMLY ON BED. STAFF TO CONTINUE MONITOR FOR MEDICATION EFFECTIVENESS.
[2022-02-08 13:11] VITALS: BP 90/60; PULSE 67; RESP 18; TEMP 36.6; O2SAT 96
--- NOTE | 2022-02-08 17:22 | P.NPUPN_ITS ---
Subjective NPU Subjective: Patient presents today reporting some signs of improvement. She reports that maybe she is having less thoughts about her . She denies any side effects of the medication and reports that she thinks that she is thinking more clearly. She seems to be less confused and possibly less ques tions than she has had the past couple of days. She reports she is eating okay and appears to be sleeping fine. Medications: Medication Review Details: This is a overweight versus obese elderly white female looking older than her stated age with hospital scrubs on with limited grooming and eye contact at times appearing disheveled.? No abnormal movements except for psychomotor retardation. Cooperative with exam in mild distress. Speech was decreased rate and volume. Mood described as a little better maybe, affect subdued. Thought process, organized to some degree with some confusion and misinformation. Thought content: patient denied suicidal but continued to discuss homicidal thoughts surrounding her , no delusions reported but issues with hyperreligious, paranoid delusions existed. She did endorse hearing and seeing things. Attention and concentration were limited and memory was intermittently reliable but none were formally tested. She is alert and oriented three times. Insight and judgment are impaired. Impulse control is impaired. Vitals/I&O/Wt Last Vital Signs Temp 97.9 F 02/08/22 19:26 Pulse 96 02/08/22 19:26 Resp 17 02/08/22 19:26 BP 127/95 02/08/22 19:26 Pulse Ox 95 02/08/22 19:26 Data NPU : 02/04/22 16:37 02/04/22 16:37 A&P Assessment and plan (1) Schizoaffective disorder: Status: Acute (2) Dementia: Status: Acute (3) Delusion: Status: Acute (4) Paranoia: Status: Acute Plan This is a 62 year old white female with a long history of mental health treatment and diagnosis of major depressive disorder with psychosis and schizoaffective disorder as well as dementia who presents with some delusions thinking and question of delusion versus delirium versus dementia, likely needing to discontinue her benzodiazepines given the impact that could have on her cognitive functioning. Continue current medications. We will need to get collateral information and start some process of discontinuing the benzodiazepine/Klonopin.? We discontinued Risperdal and started Invega 6 mg p.o. daily. Encourage individual, group and milieu therapy Continue q-15 minute check for safety Try to get collateral information in regards to what has been going on with her psychiatrically since she stopped being seen in this area since 2011. Involuntary Hold Information 96 Hour Hold: 96 Hour Involuntary Admission: No Attestations NPU Medical Necessity Statement*: Inpatient hospitalization is medically necessary and the clinically appropriate intervention at this time. We will monitor medications and make changes as indicated. Likely length of stay is 2-4 days. Coding Level of Care Code Acute Filter Operator for [facility] Diagnoses Schizoaffective disorder F25.9 Dementia F03.90 Delusion F22 Paranoia F22
[2022-02-08 19:26] VITALS: BP 127/95; PULSE 96; RESP 17; TEMP 36.6; O2SAT 95
[2022-02-08] MEDS: atorvastatin 40 mg Tablet 10 MG PO (21:14)
[2022-02-08] MEDS: docusate sodium 100 mg Capsule PO (21:14)
[2022-02-08] MEDS: trazodone 50 mg Tablet PO (21:14)
[2022-02-09 06:00] VITALS: BP 106/62; PULSE 66; RESP 17; TEMP 36.6; O2SAT 94
[2022-02-09] MEDS: sucralfate 1 gm Tablet PO ×3 (06:11→15:32)
[2022-02-09] MEDS: pantoprazole DR 40 mg Tablet PO ×2 (06:11→15:32)
[2022-02-09] MEDS: lithium carbonate 300 mg Capsule PO ×2 (09:04→20:49)
[2022-02-09] MEDS: paliperidone ER 6 mg Tablet PO (09:04)
[2022-02-09] MEDS: CLONazepam 0.5 mg Tablet PO ×3 (09:05→20:49)
[2022-02-09] MEDS: metoprolol tartrate 25 mg Tablet PO ×2 (09:05→20:50)
[2022-02-09] MEDS: escitalopram 10 mg Tablet PO (09:05)
--- NOTE | 2022-02-09 12:29 | NPU.GN ---
[facility] Topic:Dice Breaker General Mood of Group Patient did not attend group today. Patient was sleeping. Client seems to confused to complete or discuss [facility] services. [facility] was not able to enroll patient into services.
[2022-02-09] MEDS: OLANZapine 5 mg ODT PO (13:50)
[2022-02-09 14:00] VITALS: BP 112/82; PULSE 98; RESP 18; TEMP 36.7; O2SAT 97
--- NOTE | 2022-02-09 15:25 | PC.NURSE ---
Prn note Patient very tearful, she states she is fearful and feels like the devil will come for her tonight. Patient given zyprexa for hallucinations. She is currently watching TV in the dayroom with other patients.
--- NOTE | 2022-02-09 18:32 | W.PM.NPUPNS ---
Subjective NPU Subjective: Patient presented today doing less well than yesterday in regards to her emotionality. She had. At times he was crying about the devil and whether the devil was going to come get her tonight. Assurances to the contrary were not very helpful and she seemed very labile. We discussed the fact that we would really need to make some adjustments in her Klonopin including the risks benefits and alternative and she understood agreed to proceed as is documented in this note. Mental Status Exam MSE Comments: This is a overweight versus obese elderly white female looking older than her stated age with hospital scrubs on with limited grooming and eye contact at times appearing disheveled.? No abnormal movements except for psychomotor retardation. Cooperative with exam in mild distress. Speech was decreased rate and volume. Mood described as okay, affect labile. Thought process, organized to some degree with some confusion. Thought content: patient denied suicidal but continued to discuss homicidal thoughts surrounding her , no delusions reported but issues with hyperreligious, paranoid delusions existed. She did endorse hearing and seeing things. Attention and concentration were limited and memory was intermittently reliable but none were formally tested. She is alert and oriented three times. Insight and judgment are impaired. Impulse control is impaired. Vitals/I&O/Wt Last Vital Signs Temp 97.8 F 02/09/22 21:23 Pulse 98 02/09/22 21:23 Resp 16 02/09/22 21:23 BP 130/84 02/09/22 21:23 Pulse Ox 94 02/09/22 21:23 Data NPU : 02/04/22 16:37 02/04/22 16:37 A&P Assessment and plan (1) Schizoaffective disorder: Status: Acute (2) Dementia: Status: Acute (3) Delusion: Status: Acute (4) Paranoia: Status: Acute Plan This is a 62 year old white female with a long history of mental health treatment and diagnosis of major depressive disorder with psychosis and schizoaffective disorder as well as dementia who presents with some delusions thinking and question of delusion versus delirium versus dementia, likely needing to discontinue her benzodiazepines given the impact that could have on her cognitive functioning. Continue current medications. We will need to get collateral information and start some process of discontinuing the benzodiazepine/Klonopin.? We discontinued Risperdal and started Invega 6 mg p.o. daily. We will decrease her to 1.25 mg daily of Klonopin. Encourage individual, group and milieu therapy Continue q-15 minute check for safety Try to get collateral information in regards to what has been going on with her psychiatrically since she stopped being seen in this area since 2011. Involuntary Hold Information 96 Hour Hold: 96 Hour Involuntary Admission: No Attestations NPU Medical Necessity Statement*: Inpatient hospitalization is medically necessary and the clinically appropriate intervention at this time. We will monitor medications and make changes as indicated. Likely length of stay is 2-4 days. Coding Level of Care Code Acute Belt Repairer for [facility] Fwd Diagnoses Schizoaffective disorder F25.9 Dementia F03.90 Delusion F22 Paranoia F22
[2022-02-09] MEDS: atorvastatin 40 mg Tablet 10 MG PO (20:49)
[2022-02-09] MEDS: docusate sodium 100 mg Capsule PO (20:50)
[2022-02-09 21:23] VITALS: BP 130/84; PULSE 98; RESP 16; TEMP 36.6; O2SAT 94
[2022-02-10] MEDS: sucralfate 1 gm Tablet PO ×3 (06:17→16:04)
[2022-02-10] MEDS: pantoprazole DR 40 mg Tablet PO ×2 (06:17→16:03)
[2022-02-10 08:12] VITALS: BP 107/72; PULSE 68
[2022-02-10] MEDS: CLONazepam 0.5 mg Tablet PO ×2 (08:13→20:02)
[2022-02-10] MEDS: escitalopram 10 mg Tablet PO (08:14)
[2022-02-10] MEDS: lithium carbonate 300 mg Capsule PO ×2 (08:14→20:02)
[2022-02-10] MEDS: metoprolol tartrate 25 mg Tablet PO ×2 (08:15→20:01)
[2022-02-10] MEDS: paliperidone ER 6 mg Tablet PO (08:16)
--- NOTE | 2022-02-10 10:37 | NPU.GN ---
[facility] Topic: Deja Walker General Mood of Group: Patient did not attend group today. Patient was sleeping.
--- NOTE | 2022-02-10 12:55 | PC.NURSE ---
PT HAS BEEN TEARFUL AND ANXIOUS OFF AND ON SINCE WAKING. STATED THAT SHE WAS HAVING TROUBLE REMEMBERING HOW TO GET AHOLD OF HER KIDS. STAFF ASSISTED IN GETTING PHONE NUMBERS FOR CHILDREN AND ASSISTED PT WITH USING PHONE. PT IS CALMER SINCE USING PHONE. THOUGHT PROCESS IS DISORGANIZED. NO SPEECH REGARDING THE DEVIL BEING HERE SO FAR THIS SHIFT.
[2022-02-10 13:49] VITALS: BP 129/85; PULSE 87; RESP 18; TEMP 36.4; O2SAT 96
[2022-02-10] MEDS: CLONazepam 0.5 mg Tablet 0.25 MG PO (15:26)
--- NOTE | 2022-02-10 16:28 | P.NPUPN_ITS ---
Subjective NPU Subjective: Patient presents today a little less tearful but still eventually getting to talk about the devil. We discussed the fact that we are going to decrease her Klonopin today by 11/17 by decreasing her afternoon dose to 0.25 mg and she understood and agreed proceed as documented in his note. Otherwise she denied any issues and reports that she is eating okay and sleeping fine. Mental Status Exam MSE Comments: This is a overweight versus obese elderly white female looking older than her stated age with hospital scrubs on with limited grooming and eye contact at times appearing disheveled.? No abnormal movements except for psychomotor retardation. Cooperative with exam in mild distress. Speech was decreased rate and volume. Mood described as okay, affect subdued. Thought process, organized to some degree with some confusion. Thought content: patient denied suicidal but continued to discuss homicidal thoughts surrounding her , no delusions reported but issues with hyperreligious, paranoid delusions existed. She did endorse hearing and seeing things. Attention and concentration were limited and memory was intermittently reliable but none were formally tested. She is alert and oriented three times. Insight and judgment are impaired. Impulse control is impaired. Vitals/I&O/Wt Last Vital Signs Temp 97.5 F L 02/10/22 13:49 Pulse 87 02/10/22 13:49 Resp 18 02/10/22 13:49 BP 129/85 02/10/22 13:49 Pulse Ox 96 02/10/22 13:49 Data NPU : 02/04/22 16:37 02/04/22 16:37 A&P Assessment and plan (1) Schizoaffective disorder: Status: Acute (2) Dementia: Status: Acute (3) Delusion: Status: Acute (4) Paranoia: Status: Acute (5) Delirium: Status: Acute Plan This is a 62 year old white female with a long history of mental health treatment and diagnosis of major depressive disorder with psychosis and schizoaffective disorder as well as dementia who presents with some delusions thinking and question of delusion versus delirium versus dementia, likely needing to discontinue her benzodiazepines given the impact that could have on her cognitive functioning. Continue current medications. We will need to get collateral information and start some process of discontinuing the benzodiazepine/Klonopin.? We discontinued Risperdal and started Invega 6 mg p.o. daily.? We decreased her to 1.25 mg daily of Klonopin. Encourage individual, group and milieu therapy Continue q-15 minute check for safety Try to get collateral information in regards to what has been going on with her psychiatrically since she stopped being seen in this area since 2011. Involuntary Hold Information 96 Hour Hold: 96 Hour Involuntary Admission: No Attestations NPU Medical Necessity Statement*: Inpatient hospitalization is medically necessary and the clinically appropriate intervention at this time. We will monitor medications and make changes as indicated. Likely length of stay is 2-4 days. Coding Level of Care Code Acute Telephone Engineer for [facility] Diagnoses Schizoaffective disorder F25.9 Dementia F03.90 Delusion F22 Paranoia F22 Delirium R41.0
[2022-02-10] MEDS: trazodone 50 mg Tablet PO (20:01)
[2022-02-10] MEDS: atorvastatin 40 mg Tablet 10 MG PO (20:01)
[2022-02-10] MEDS: docusate sodium 100 mg Capsule PO (20:01)
[2022-02-10 20:32] VITALS: BP 123/85; PULSE 103; RESP 18; O2SAT 95
[2022-02-10] MEDS: hyDROXYzine 25 mg Capsule 50 MG PO (21:53)
--- NOTE | 2022-02-10 21:53 | PC.NURSE ---
patient up to nurses station, states I am scared of the devil . patient redirected, given medication
[2022-02-11 05:55] VITALS: BP 116/78; PULSE 78; RESP 16; O2SAT 96
[2022-02-11] MEDS: sucralfate 1 gm Tablet PO ×3 (06:41→16:22)
[2022-02-11] MEDS: pantoprazole DR 40 mg Tablet PO ×2 (06:41→16:22)
--- NOTE | 2022-02-11 09:37 | P.NPUPN_ITS ---
Subjective NPU Subjective: Patient presents today doing decent in the morning but having a significant breakdown later in the morning talking about the devil and how she?s afraid he?s going to come tonight. She has reached out to the toll collector on a couple of occasions to help her manage her spiritual thoughts about her s ituation. We discussed the fact that I had a plan to reach out to a geriatric psychiatrist to see if there were any additional considerations that they would suggest and she thought would be a good idea. She continues to be overwhelmed with the thought of Satan coming here or forcing her to hurt her . Mental Status Exam MSE Comments: This is a overweight versus obese elderly white female looking older than her stated age with hospital scrubs on with limited grooming and eye contact at times appearing disheveled.? No abnormal movements except for psychomotor retardation. Cooperative with exam in mild to moderate distress. Speech was decreased rate and volume. Mood described as scared, affect congruent. Thought process, organized to some degree with some confusion. Thought content: patient denied suicidal but continued to discuss homicidal thoughts surrounding her , no delusions reported but issues with hyperreligious, paranoid delusions existed. She did endorse hearing and seeing things. Attention and concentration were limited and memory was intermittently reliable but none were formally tested. She is alert and oriented three times. Insight and judgment are impaired. Impulse control is impaired. Vitals/I&O/Wt Last Vital Signs Temp 97.5 F L 02/10/22 13:49 Pulse 78 02/11/22 05:55 Resp 16 02/11/22 05:55 BP 116/78 02/11/22 05:55 Pulse Ox 96 02/11/22 05:55 Data NPU : 02/04/22 16:37 02/04/22 16:37 A&P Assessment and plan (1) Delirium: Status: Acute (2) Schizoaffective disorder: Status: Acute (3) Dementia: Status: Acute (4) Delusion: Status: Acute (5) Paranoia: Status: Acute Plan This is a 62 year old white female with a long history of mental health treat ment and diagnosis of major depressive disorder with psychosis and schizoaffective disorder as well as dementia who presents with some delusions thinking and question of delusion versus delirium versus dementia, likely needing to discontinue her benzodiazepines given the impact that could have on her cognitive functioning. Continue current medications. We will need to get collateral information and start some process of discontinuing the benzodiazepine/Klonopin.? We discontinued Risperdal and started Invega 6 mg p.o. daily.? We decreased her to 1.25 mg daily of Klonopin. Encourage individual, group and milieu therapy Continue q-15 minute check for safety Try to get collateral information in regards to what has been going on with her psychiatrically since she stopped being seen in this area since 2011.I additionally will reach out to a geriatric psychiatrist and explore whether there may be some basis to transfer her to a geriatric facility or if they have any recommendations for how old is might be handled differently or better. Involuntary Hold Information 96 Hour Hold: 96 Hour Involuntary Admission: No Attestations NPU Medical Necessity Statement*: Inpatient hospitalization is medically necessary and the clinically appropriate intervention at this time. We will monitor medications and make changes as indicated. Likely length of stay is 2-4 days. Coding Level of Care Code Acute Pocketed Spring Assembler for [facility] Diagnoses Delirium R41.0 Schizoaffective disorder F25.9 Dementia F03.90 Delusion F22 Paranoia F22
[2022-02-11] MEDS: metoprolol tartrate 25 mg Tablet PO (10:47)
[2022-02-11] MEDS: lithium carbonate 300 mg Capsule PO ×2 (10:47→20:14)
[2022-02-11] MEDS: benztropine 1 mg Tablet PO (10:47)
[2022-02-11] MEDS: paliperidone ER 6 mg Tablet PO (10:47)
[2022-02-11] MEDS: escitalopram 10 mg Tablet PO (10:48)
[2022-02-11] MEDS: CLONazepam 0.5 mg Tablet PO ×2 (10:50→21:08)
[2022-02-11] MEDS: haloperidol 5 mg Tablet PO ×2 (12:37→17:56)
--- NOTE | 2022-02-11 12:43 | PC.NURSE ---
Prn note Patient tearful, stating devil is coming for her tonight Staff spoke with patient at length and Haldol was administered.
[2022-02-11] MEDS: hyDROXYzine 25 mg Capsule 50 MG PO (13:17)
[2022-02-11] MEDS: CLONazepam 0.5 mg Tablet 0.25 MG PO (13:57)
[2022-02-11 14:00] VITALS: BP 110/67; PULSE 75; RESP 18; TEMP 37; O2SAT 95
--- NOTE | 2022-02-11 16:57 | PC.NURSE ---
Shift note Patient has isolated to room most of shift. She has been up for meals. She has reported auditory hallucinations of the devil speaking to her. She has received Vistaril and Haldol this shift.
[2022-02-11] MEDS: atorvastatin 40 mg Tablet 10 MG PO (20:14)
[2022-02-11] MEDS: docusate sodium 100 mg Capsule PO (20:15)
[2022-02-11 20:41] VITALS: BP 98/65; PULSE 78; RESP 17; TEMP 36.4; O2SAT 97
[2022-02-12 02:51] VITALS: BMI 35.9
[2022-02-12 06:00] VITALS: BP 103/68; PULSE 75; RESP 16; TEMP 36.6; O2SAT 94
[2022-02-12] MEDS: pantoprazole DR 40 mg Tablet PO ×2 (06:12→16:23)
[2022-02-12] MEDS: sucralfate 1 gm Tablet PO ×3 (06:12→16:23)
[2022-02-12] MEDS: acetaminophen 325 mg Tablet 650 MG PO (08:29)
[2022-02-12] MEDS: CLONazepam 0.5 mg Tablet PO ×2 (08:29→20:16)
[2022-02-12] MEDS: escitalopram 10 mg Tablet PO (08:29)
[2022-02-12] MEDS: lithium carbonate 300 mg Capsule PO ×2 (08:29→20:16)
[2022-02-12] MEDS: metoprolol tartrate 25 mg Tablet PO (08:29)
[2022-02-12] MEDS: paliperidone ER 6 mg Tablet PO (08:30)
[2022-02-12 14:00] VITALS: BP 90/59; PULSE 74; RESP 16; TEMP 36.5; O2SAT 96
--- NOTE | 2022-02-12 14:22 | PC.NURSE ---
AH Reports to nurse she is still fearful that the devil will get into the unit. Reassured patient the devil can not get in. Anxiety did decrease after verbal redirection. Went back to room.
[2022-02-12] MEDS: CLONazepam 0.5 mg Tablet 0.25 MG PO (14:28)
--- NOTE | 2022-02-12 17:55 | W.PM.NPUPNS ---
Subjective NPU Subjective: Patient presents today still seeming somewhat confused but for the first time having her interest and focus being that she wants to be at home. She was tearful saying that she missed her grandchildren and family. She would not answer whether or not she was having thoughts about her in a negative way and was agreeable for us to reach out to Dr. Beltrán in the morning. Mental Status Exam MSE Comments: This is a overweight versus obese elderly white female looking older than her stated age with hospital scrubs on with limited grooming and eye contact at times appearing disheveled.? No abnormal movements except for psychomotor retardation. Cooperative with exam in mild to moderate distress. Speech was decreased rate and volume. Mood described as no, affect congruent and confused Thought process, organized to some degree with some confusion. Thought content: patient denied suicidal but did not specifically identify thoughts towards but also did not deny thoughts towards aggression towards no delusions reported but issues with hyperreligious, paranoid delusions existed. She did not report hearing or seeing anything today. Attention and concentration were limited and memory was intermittently reliable but none were formally tested. She is alert and oriented three times. Insight and judgment are impaired. Impulse control is impaired. Vitals/I&O/Wt Last Vital Signs Temp 98.2 F 02/12/22 20:07 Pulse 74 02/12/22 20:07 Resp 20 H 02/12/22 20:07 BP 97/67 02/12/22 20:07 Pulse Ox 97 02/12/22 20:07 Weight last 48 hrs Weight 91.852 kg Data NPU : 02/04/22 16:37 02/04/22 16:37 A&P Assessment and plan (1) Delirium: Status: Acute (2) Schizoaffective disorder: Status: Acute (3) Dementia: Status: Acute (4) Delusion: Status: Acute (5) Paranoia: Status: Acute Plan This is a 62 year old white female with a long history of mental health treatment and diagnosis of major depressive disorder with psychosis and schizoaffective disorder as well as dementia who presents with some delusions thinking and question of delusion versus delirium versus dementia, likely needing to discontinue her benzodiazepines given the impact that could have on her cognitive functioning. Continue current medications. We will need to get collateral information and start some process of discontinuing the benzodiazepine/Klonopin.? We discontinued Risperdal and started Invega 6 mg p.o. daily.? We decreased her to 1.25 mg daily of Klonopin. Encourage individual, group and milieu therapy Continue q-15 minute check for safety Recheck labs in the morning. Try to get collateral information in regards to what has been going on with her psychiatrically since she stopped being seen in this area since 2011. We will attempt to talk to Dr. Beltr[facility] of [facility] in the morning. I additionally will reach out to a geriatric psychiatrist and explore whether there may be some basis to transfer her to a geriatric facility or if they have any recommendations for how old is might be handled differently or better. Involuntary Hold Information 96 Hour Hold: 96 Hour Involuntary Admission: No Attestations NPU Medical Necessity Statement*: Inpatient hospitalization is medically necessary and the clinically appropriate intervention at this time. We will monitor medications and make changes as indicated. Likely length of stay is 2-4 days. Coding Level of Care Code Acute World Travel Counselor for [facility] Diagnoses Delirium R41.0 Schizoaffective disorder F25.9 Dementia F03.90 Delusion F22 Paranoia F22
[2022-02-12 20:07] VITALS: BP 97/67; PULSE 74; RESP 20; TEMP 36.8; O2SAT 97
[2022-02-12] MEDS: docusate sodium 100 mg Capsule PO (20:16)
[2022-02-12] MEDS: hyDROXYzine 25 mg Capsule 50 MG PO (20:16)
[2022-02-12] MEDS: atorvastatin 40 mg Tablet 10 MG PO (20:16)
--- NOTE | 2022-02-12 20:28 | PC.NURSE ---
During shift assessment patient repeatedly ask if they devil could get it to get her. She was easily redirectable. Patient was given Visteril.
[2022-02-13 06:00] VITALS: BP 111/75; PULSE 81; RESP 19; TEMP 36.3; O2SAT 94
[2022-02-13] MEDS: pantoprazole DR 40 mg Tablet PO ×2 (06:00→15:46)
[2022-02-13] MEDS: sucralfate 1 gm Tablet PO ×3 (06:00→15:46)
[2022-02-13] MEDS: lithium carbonate 300 mg Capsule PO ×2 (08:21→20:15)
[2022-02-13] MEDS: CLONazepam 0.5 mg Tablet PO ×2 (08:21→20:16)
[2022-02-13] MEDS: paliperidone ER 6 mg Tablet PO (08:21)
[2022-02-13] MEDS: escitalopram 10 mg Tablet PO (08:21)
[2022-02-13] MEDS: metoprolol tartrate 25 mg Tablet PO ×2 (08:21→20:16)
[2022-02-13] MEDS: hyDROXYzine 25 mg Capsule 50 MG PO ×2 (11:18→17:40)
--- NOTE | 2022-02-13 11:19 | PC.NURSE ---
Prn note Patient reports seeing the devil and states hes coming to get me . Vistaril given for anxiety.
[2022-02-13 14:00] VITALS: BP 97/61; PULSE 80; RESP 20; TEMP 36.5; O2SAT 94
[2022-02-13] MEDS: CLONazepam 0.5 mg Tablet 0.25 MG PO (14:04)
--- NOTE | 2022-02-13 15:56 | PC.SOCIAL ---
Client did not attend group stating that she did not feel well.
--- NOTE | 2022-02-13 16:22 | W.PM.NPUPNS ---
Subjective NPU Subjective: Patient resents today reporting that she is feeling a little better and this is not being really depressed but thoughts about the devil. Her son called and invited her to come to stay with him for little bit and she thought that that might be a reasonable option. We agreed to talk with her son and her and decide what might be a good discharge plan and beginning and then go from there. We attempted to reach Dr. Beltrán without success and we discussed the possibility of discharge in the next 48 hours. She denied significant thoughts about the devil but does report that they are still there to some degree. Mental Status Exam MSE Comments: This is a overweight versus obese elderly white female looking older than her stated age with hospital scrubs on with limited grooming and eye contact at times appearing disheveled.? No abnormal movements except for psychomotor retardation. Cooperative with exam in mild distress. Speech was decreased rate and volume. Mood described as okay, affect congruent and less confused. Thought process, organized to some degree with less confusion. Thought content: patient denied suicidal and denied any homicidal ideation or aggressive thoughts towards no delusions reported and less issues with hyperreligious, paranoid delusions existed.? She did not report hearing or seeing anything today. Attention and concentration were limited and memory was intermittently reliable but none were formally tested. She is alert and oriented three times. Insight and judgment are limited. Impulse control is limited. Vitals/I&O/Wt Last Vital Signs Temp 97.7 F 02/13/22 14:00 Pulse 80 02/13/22 14:00 Resp 20 H 02/13/22 14:00 BP 97/61 02/13/22 14:00 Pulse Ox 94 02/13/22 14:00 Weight last 48 hrs Weight 91.852 kg Data NPU : 02/04/22 16:37 02/04/22 16:37 A&P Assessment and plan (1) Delirium: Status: Acute (2) Schizoaffective disorder: Status: Acute (3) Dementia: Status: Acute (4) Delusion: Status: Acute (5) Paranoia: Status: Acute Plan This is a 62 year old white female with a long history of mental health treatment and diagnosis of major depressive disorder with psychosis and schizoaffective disorder as well as dementia who presents with some delusions thinking and question of delusion versus delirium versus dementia, likely needing to discontinue her benzodiazepines given the impact that could have on her cognitive functioning. Continue current medications. We will need to get collateral information and start some process of discontinuing the benzodiazepine/Klonopin.? We discontinued Risperdal and started Invega 6 mg p.o. daily.? We decreased her to 1.25 mg daily of Klonopin. Encourage individual, group and milieu therapy Continue q-15 minute check for safety Recheck labs in the morning. Try to get collateral information in regards to what has been going on with her psychiatrically since she stopped being seen in this area since 2011.? We will attempt to talk to Dr. Beltrán of [facility] in the morning.? We will work with and son to determine best discharge plan. Involuntary Hold Information 96 Hour Hold: 96 Hour Involuntary Admission: No Attestations NPU Medical Necessity Statement*: Inpatient hospitalization is medically necessary and the clinically appropriate intervention at this time. We will monitor medications and make changes as indicated. Likely length of stay is 1-3 days. Coding Level of Care Code Acute Digital Press Operator for Vicki Bach Diagnoses Delirium R41.0 Schizoaffective disorder F25.9 Dementia F03.90 Delusion F22 Paranoia F22
[2022-02-13] MEDS: docusate sodium 100 mg Capsule PO (20:15)
[2022-02-13] MEDS: atorvastatin 40 mg Tablet 10 MG PO (20:16)
[2022-02-13 20:29] VITALS: BP 126/81; PULSE 95; RESP 19; TEMP 36.9; O2SAT 97
[2022-02-14 06:00] VITALS: BP 118/78; PULSE 65; RESP 16; TEMP 36.5; O2SAT 95
[2022-02-14] MEDS: sucralfate 1 gm Tablet PO ×3 (06:29→15:28)
[2022-02-14] MEDS: pantoprazole DR 40 mg Tablet PO ×2 (06:29→15:28)
[2022-02-14] MEDS: escitalopram 10 mg Tablet PO (10:00)
[2022-02-14] MEDS: CLONazepam 0.5 mg Tablet PO (10:00)
[2022-02-14] MEDS: metoprolol tartrate 25 mg Tablet PO (10:00)
[2022-02-14] MEDS: lithium carbonate 300 mg Capsule PO (10:00)
[2022-02-14] MEDS: paliperidone ER 6 mg Tablet PO (10:01)
--- NOTE | 2022-02-14 11:13 | PC.SOCIAL ---
Patient did not attend group.
[2022-02-14 14:00] VITALS: BP 89/62; PULSE 72; RESP 18; TEMP 36.7; O2SAT 93
--- NOTE | 2022-02-14 15:25 | DCPLANNER ---
IMM completed with pt on 02/14/22 @ 2888. Pt was given a copy of rights and pt stated she understood rights.
[2022-02-14] MEDS: CLONazepam 0.5 mg Tablet 0.25 MG PO (15:28)
--- NOTE | 2022-02-14 15:57 | W.PM.NPUDCS ---
Diagnoses at Discharge Discharge Diagnosis (1) Delirium: Status: Acute (2) Schizoaffective disorder: Status: Acute (3) Dementia: Status: Acute (4) Delusion: Status: Acute (5) Paranoia: Status: Acute Reason for Visit Reason for Visit: PSYCH EVAL Brief History: History of Present Illness Jenniffer Hollingsworth is a 62 year old female who presented to the emergency department with the following report: Chief complaint: Psychiatric Symptoms Stated complaint: PSYCH EVAL Time Seen by Provider: 02/04/22 15:56 History of Present Illness: HPI: [62]yo patient w/ hx of depression BIBA for worsening delusion and paranoia. Patient tells me that Hugh wants to kill me. for On arrival, the patient is AAOx3 and cooperative with my evaluation. No focal complaints of chest pain, shortness of breath, palpitations, N/V, focal GI/ complaints. Currently denies SI/HI. No complaints of hallucinations. Onset: acute Duration: ongoing Location: home Severity: severe Associated symptoms: Deny chest pain, dyspnea, nausea, rash, palpitations or vomiting She was admitted to the neuropsychiatric unit for definitive treatment of those issues. She presents as a fairly poor historian secondary to possible dementia which it appears she carried since at least 2011. She reports that she has been psychiatrically hospitalized twice but she has been hospitalized at least 9 or 10 times here at [facility]. She reports that she was hospitalized about 5 years ago in [place] and had been living closer to [place] which may be why she is not showing up in the system after 2011 here and then showed back up in some capacity in 2019 but has not been engaged in psychiatric services that can be seen in the system. She has had outpatient services at [facility] which went until around 2012 after which she must have moved because she has not been in psychiatric services in the system since then. She is currently on medication and says she has been on medication for a while but is experiencing current breakthrough symptoms reportedly on the medications. She denies tobacco, alcohol, marijuana or any other illicit drug use. She has not been to rehab or had any DUIs. She reports that her psychiatric concerns started recently but we can see psychiatric treatment going back at least to 2004. It is likely that she has been getting treatment in [place] and that is where her medications are probably being managed but she doesn?t know when she moved to [place] and overall is a poor historian likely secondary to this dementing condition with reports that she was on Aricpt and Nanemda as far back as 2011. She reports the reason why she is here is because the devil has a picture on her phone and she came here to see if it could be taken off. She reports that she did have a suicide attempt 5 years ago which sent her to [facility] and according to the system she had what was ken to a suicidal gesture prior to 2011. She denies any history of self-injurious behaviors. We discussed the risks, benefits and alternatives of us getting some collateral information to figure out what has been going on with medication and find out why she possibly stopped Abilify in the past or see if she has been on something like Invega to possibly replace her current medications versus increase the dose of her current medications which include Lexapro and Risperdal. Additionally we discussed the fact that she is on Klonopin 0.5mg tid and that might also be causing some of the problems she is having and will get collateral information to make decisions about that but she agreed to proceed as is documented in this note. Psychiatric History: As above. Substance Abuse History: As above Family History: She does report mental health issues on her mother?s side of the family, denies any addiction on either side of the family, and does have chart history of a suicide attempt by a cousin. Developmental History: She denied any issues with her , learned to walk and talk and met her developmental milestones on time, and does report that she had speech therapy and special education course work. Psychosocial History: She reports that she had four siblings, two brother and two sisters and she was the third. She reports that he dad adopted 2 other children. She denied that either of her parents had any other children. She reports that her childhood was good and denied any sexual, physical or emotional abuse. She denies any CYS involvement or other traumatic events. She reports the highest grade she achieved was the 8th grade though past records suggest that she maybe made it to the 9th. She never got her GED. She endorses being heterosexual with her longest relationship being 18 years. She initially said she was only one time but later brought up she was living with her and was able to come to the conclusion that she was twice, first marriage reportedly ended when her and she was but she has no recollection of when that happened. She has 3 children, 2 boys and 1 girl. Initially she was giving their ages as 18, 17 and 12 but eventually was able to come around and identify that they were in their 40s and one might be in his 30s. 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 She currently lives in an apartment reportedly with her . Legal History: Denied. Medical History: She has carried this diagnosis of mild dementia for some time, has had a hysterectomy, GERD, hiatal hernia, and hypercholesterolemia. Hospital Course Hospital Course She very slowly acclimated to the individual, group and milieu therapies provided. We discontinued her Risperdal and added Invega with good response. We also began the process of a slow taper off of her Klonopin which was 0.5 mg 3 times a day. We decreased it to 0.5 mg twice daily and 0.25 mg p.o. q. afternoon with a regular possibly decrease 0.25 mg every 2 to 4 weeks as tolerated. She demonstrated modest improvement and was able to contract for safety prior to discharge. Her likely superimposed dementia complicated her stay. During the hospitalization, patient had routine laboratory studies which were within normal limits except for few outliers. Additionally there was a general medical evaluation which was also within normal limits and revealed no new acute processes. Discharge Summary: At the time of discharge, lethality was denied and psychosis was resolving. Mood and anxiety were well managed. Patient endorsed a plan to avoid all drugs of abuse and follow-up with the aftercare recommendations of the treatment team. Patient was evaluated and deemed to be absent credible lethality, and had achieved the maximum benefit from an inpatient hospitalization, so was discharged. Involuntary Hold Information 96 Hour Hold: 96 Hour Involuntary Admission: No Mental Status Exam MSE Comments: This is a overweight versus obese elderly white female looking older than her stated age with hospital scrubs on with limited grooming and eye contact at times appearing more kempt.? No abnormal movements except for slowly resolving psychomotor retardation. Cooperative with exam in no acute distress. Speech was decreased rate and volume. Mood described as a little better, affect congruent.? Thought process, more organized with less confusion. Thought content: patient denied suicidal and denied any homicidal ideation or aggressive thoughts towards , no delusions reported and less issues with hyperreligious, paranoid thinking existed.? She did not report hearing or seeing anything today. Attention and concentration were improving and memory was mostly reliable but none were formally tested. She is alert and oriented three times. Insight and judgment are limited. Impulse control is limited. Discharge Data Studies Completed and Pending: Completed Studies During Hospitalization Category Date Time Status CT head wo con* [id number] Urgent Cat Scan 02/04/22 15:59 Completed Radiology Impressions Head CT 02/04/22 15:59 IMPRESSION: 1. No acute intracranial abnormality. 2. Inflammatory changes of the sinuses. Laboratory Results WBC 8.5 10^3/uL (4.0- 10.0) 02/04/22 16:37 RBC 4.50 10^6/uL (4.1 -5.3) 02/04/22 16:37 Hgb 13.3 g/dL (11.5-1 5.3) 02/04/22 16:37 Hct 39.9 % (37.0-47.0 ) 02/04/22 16:37 MCV 88.7 fl (81-99) 02/04/22 16:37 MCH 29.6 pg (28.0-34. 0) 02/04/22 16:37 MCHC 33.3 g/dL (30.0-3 6.0) 02/04/22 16:37 RDW 13.2 % (12.1-15.1 ) 02/04/22 16:37 Plt Count 237 10^3/cmm (130 -400) 02/04/22 16:37 MPV 10.7 fL (7.4-10.4 ) H 02/04/22 16:37 Neut % (Auto) 58.9 % 02/04/22 16:37 Lymph % (Auto) 31.8 % 02/04/22 16:37 [place] % (Auto) 8.2 % 02/04/22 16:37 Eos % (Auto) 0.5 % 02/04/22 16:37 Baso % (Auto) 0.2 % 02/04/22 16:37 Neut # (Auto) 5.01 10^3/uL (1.8 -7.7) 02/04/22 16:37 Lymph # (Auto) 2.7 10^3/uL (0.8- 4.8) 02/04/22 16:37 [place] # (Auto) 0.7 10^3/uL (0.2- 0.9) 02/04/22 16:37 Eos # (Auto) 0.0 10^3/uL (0.0- 0.8) 02/04/22 16:37 Baso # (Auto) 0.0 10^3/uL (0.0- 0.1) 02/04/22 16:37 Nucleated RBC % (a uto) 0 % 02/04/22 16:37 Nucleated RBCs # 0.0 /100WBC 02/04/22 16:37 Sodium 138 mmol/L (136-1 45) 02/04/22 16:37 Potassium 3.9 mmol/L (3.5-5 .1) 02/04/22 16:37 Chloride 104 mmol/L (98-10 7) 02/04/22 16:37 Carbon Dioxide 26 mmol/L (22-29) 02/04/22 16:37 Anion Gap 11.9 (5-19) 02/04/22 16:37 BUN 11 mg/dL (8-23) 02/04/22 16:37 Creatinine 0.6 mg/dL (0.5-0. 9) 02/04/22 16:37 GFR Calculation 100.6 mL/min (90- 130) 02/04/22 16:37 Glucose 125 mg/dL (65-115 ) H 02/04/22 16:37 Calculated Osmolal ity 287 mOsm/kg (285- 295) 02/04/22 16:37 Calcium 9.4 mg/dL (8.5-10 .5) 02/04/22 16:37 Total Bilirubin 0.3 mg/dL (0.15-1 .2) 02/04/22 16:37 AST 15 U/L (0-32) 02/04/22 16:37 ALT 22 U/L (0-33) 02/04/22 16:37 Alkaline Phosphata se 77 IU/L (35-105) 02/04/22 16:37 Total Protein 6.3 g/dL (6.6-8.7 ) L 02/04/22 16:37 Albumin 4.2 g/dL (3.5-5.2 ) 02/04/22 16:37 Globulin 2.1 g/dL (1.3-4.6 ) 02/04/22 16:37 Lipase 30 U/L (13-60) 02/04/22 16:37 TSH 1.38 uIU/mL (0.27 -4.20) 02/04/22 16:37 Free T4 1.31 ng/dL (0.82- 1.77) 02/04/22 16:37 Urine Color Straw (Yellow) 02/04/22 16:15 Urine Appearance Clear (CLEAR) 02/04/22 16:15 Urine pH 6.5 (5-7) 02/04/22 16:15 Ur Specific Gravit y 1.005 (1.005-1.0 30) 02/04/22 16:15 Urine Protein Neg (Negative) 02/04/22 16:15 Urine Glucose (UA) Norm (Normal) 02/04/22 16:15 Urine Ketones Negative (Negati ve) 02/04/22 16:15 Urine Blood Neg (Negative) 02/04/22 16:15 Urine Nitrate Negative (Negati ve) 02/04/22 16:15 Urine Bilirubin Neg (Negative) 02/04/22 16:15 Urine Urobilinogen Norm mg/dL (Negat mitchell) 02/04/22 16:15 Ur Leukocyte Emma ase Negative (Negati ve) 02/04/22 16:15 Salicylates < 0.3 mg/dL (3-10 ) L 02/04/22 16:37 Urine Opiates Scre en Negative ng/mL (N egative) 02/04/22 16:15 Acetaminophen < 5.0 ug/mL (10-3 0) L 02/04/22 16:37 Ur Barbiturates Sc reen Negative ng/mL (N egative) 02/04/22 16:15 Ur Phencyclidine S crn Negative ng/mL (N egative) 02/04/22 16:15 Ur Amphetamines Sc reen Negative ng/mL (N egative) 02/04/22 16:15 U Benzodiazepines Scrn Negative ng/mL (N egative) 02/04/22 16:15 Urine Cocaine Scre en Negative ng/mL (N egative) 02/04/22 16:15 U Marijuana (THC) Screen Negative ng/mL (N egative) 02/04/22 16:15 Vitals: Last Vital Signs Temp 98.0 F 02/14/22 14:00 Pulse 72 02/14/22 14:00 Resp 18 02/14/22 14:00 BP 89/62 02/14/22 14:00 Pulse Ox 93 02/14/22 14:00 Discharge Plan Discharge Patient Disposition: Home Condition: Stable Prescriptions: New clonazepam 0.5 mg Tablet 0.25 mg PO DAILY@1500 30 Days Qty: 15 0RF Rx Instructions: Discontinue afternoon dose when these pills are gone clonazepam 0.5 mg Tablet 0.5 mg PO BID@0900,2100 30 Days Qty: 60 1RF paliperidone 6 mg Tablet Extended Release 24hr 6 mg PO DAILY 30 Days Qty: 30 1RF Continued sucralfate 1 gram tablet 1 g PO 07,11,16 0RF atorvastatin 10 mg tablet 10 mg PO BEDTIME 0RF escitalopram oxalate 10 mg tablet 10 mg PO DAILY 0RF lithium carbonate 300 mg capsule 300 mg PO 09,21 0RF metoprolol tartrate 25 mg tablet 25 mg PO 09,21 0RF pantoprazole 40 mg tablet,delayed release (DR/EC) 40 mg PO ,16 0RF Discontinued clonazepam 0.5 mg tablet 0.5 mg PO TID 0RF risperidone 1 mg tablet 1 mg PO 09,21 0RF Discharge Orders: Discharge Order (Routine); Ordered 02/14/22 Ordered By: Adam Chan Referrals: Patt Beltrán MD [Other] - 02/22/22 4:30 pm (Follow up appointment.) [facility] [Other] - 02/28/22 12:00 pm (At home phone initial interview scheduled for 02/28/22 @12:00 pm. Number may show restricted but please answer. Can call to reschedule or call for in person schedule. ) Alisson Sánchez MD [Referring] - Discharge Diet: Regular Discharge Activity: Resume usual activity Patient Instructions: Mood Disorders (DC), Opioid Safety Discharge Attestations NPU Time Spent in Discharge Care*: less than 30 min Specific Discharge Activities: Specific discharge activities: educating patient, discussing with case worker/social workers/dc planners, documenting/other paperwork and evaluating patient/reviewing data Coding Level of Care Code Acute Chg FW DC note Diagnoses Delirium R41.0 Schizoaffective disorder F25.9 Dementia F03.90 Delusion F22 Paranoia F22
[2022-02-14 15:59] VITALS: BP 89/62; PULSE 72; RESP 18; TEMP 36.7; O2SAT 93
== END 2022-02-14 16:12 | disposition home or self-care (01) | DRG 885 ==
LOC: ER 18:58 → NP 19:27
PROVIDERS: Admitting Provider Psychiatry & Neurology Psychiatry; Emergency Provider Emergency Medicine; PCP Nurse Practitioner Family; Visit Provider Psychiatry & Neurology Psychiatry
DX: F25.9 Schizoaffective disorder, unspecified (principal); F03.90 Unspecified dementia, unspecified severity, without behavioral disturbance, psychotic disturbance, mood disturbance, and anxiety; Z81.8 Family history of other mental and behavioral disorders
CPT/HCPCS: 70450; 80053; 80306; 80307; 81003; 83690; 84439; 84443; 85025; 97150; 97165; 99285

== ENCOUNTER 2022-03-02 16:13 | Emergency (ER) | payer MEDICARE, MEDICAID, SELFPAY ==
--- NOTE | 2022-03-02 16:26 | W.ED.GENADLT ---
Documented by User: Bisi Styles MD 03/02/22 17:38 HPI - General Adult General: Chief complaint: Psychiatric Symptoms Stated complaint: ANXIETY, POSS UTI Time Seen by Provider: 03/02/22 16:15 History of Present Illness: HPI: [62]yo patient w/ hx of schizophrenia BIBA for hearing voices x 30 days and dysuria x 3 days. Per patient's , patient has had urinary urgency for the last 3 days. Out of bed for the last 30 days, patient tells me that Hugh has been sending me photos. Patient's is worried about patient's mental health and would like patient to be seen and evaluated in a psychiatric facility. On arrival, the patient is AAOx3 and cooperative with my evaluation. No focal complaints of chest pain, shortness of breath, palpitations, N/V, focal GI/ complaints. Currently denies SI/HI. No complaints of hallucinations. Onset: acute on chronic Duration: ongoing Location: home Severity: severe Associated symptoms: Deny chest pain, dyspnea, nausea, rash, palpitations or vomiting Review of Systems Const: Denies: fever(s) or chills Eyes: Denies: change in vision ENMT: Denies: mouth pain Card: Denies: chest pain or palpitations Resp: Denies: dyspnea or non-productive cough GI: Denies: abdominal pain, nausea, vomiting or diarrhea : Denies: dysuria Musc: Denies: extremity pain Skin/Breast: Denies: rash or new lesions Neuro: Denies: weakness in extremities Psych: Reports: auditory hallucinations and other (Normal mood) Chris/Lymph: Denies: easy bruising PFS ED PFSH: Medical History Pneumonia due to 2019 novel coronavirus Schizophrenia Social History Smoking and tobacco status: never smoked Alcohol intake: never Physical Exam Const: COMMON NORMALS: alert HENMT: COMMON NORMALS: atraumatic HEAD & SCALP: atraumatic MOUTH: moist mucous membranes not abnormal Eye: COMMON NORMALS: EOMs intact bilaterally and conjunctivae normal CONJUNCTIVA: Yes conjunctivae normal Neck/C-Spine: COMMON NORMALS: full ROM and supple Resp: COMMON NORMALS: normal respiratory effort and clear to auscultation bilaterally AUSCULTATION: clear to auscultation bilaterally Cardio: COMMON NORMALS: regular rate RATE: regular rate GI: COMMON NORMALS: Soft to palpation and non-tender PALPATION: Yes Soft to palpation Extremity: COMMON NORMALS: full ROM Neuro: SENSORIUM/ORIENTATION: Yes alert MOTOR EXAM: No Abnormal motor strength present and Other motor observations present (no focal motor deficits) Psych: COMMON NORMALS: speech normal SPEECH: Yes normal speech MOOD & AFFECT: Yes euthymic mood and Yes anxious Course Vital Signs: Vital signs: Vital Signs Temperature 98.9 F 03/03/22 02:31 Pulse Rate 73 03/03/22 02:31 Respiratory Rate 15 03/03/22 02:31 Blood Pressure 137/71 03/03/22 02:31 Pulse Oximetry 96 03/03/22 02:31 MDM - General Adult Medical Decision Making [62]yo patient w/ hx of schizophrenia presenting for dysuria x 3 days and delusion and paranoia x30 days. HDS, exam within normal limit. Thoughts are non-linear and disorganized and the patient has no AH/VH, or HI. Clinically the patient displays no overt toxidrome; they are well appearing, with low suspicion for toxic ingestion given history and exam. Symptoms unlikely 2/2 anemia, hypothyroidism, infection, or ICH. Workup: CBC, CMP, Lipase, salicylate/tylenol, UDS, UA, TSH/free T4, EKG, covid antigen Lab findings: wnl, UA is negative for UTI. [5:11pm] On reassessment, labs and workup wnl. Patient is hemodynamically stable with no acute medical complaints. Case discussed with psychiatric provider Dr. Chan at [facility] psych inpatient with recommendation for transfer to [facility] psych facility as we currently do not have any beds in the hospital. Disposition: Xfer to geriatric psych facility Lab Data : 03/02/22 16:36 03/02/22 16:36 Radiology Impressions Chest X-Ray 03/02/22 22:00 IMPRESSION: No acute finding. Laboratory Results WBC 9.6 10^3/uL (4.0-10.0) 03/02/22 16:36 RBC 4.14 10^6/uL (4.1-5.3) 03/02/22 16:36 Hgb 12.3 g/dL (11.5-15.3) 03/02/22 16:36 Hct 37.1 % (37.0-47.0) 03/02/22 16:36 MCV 89.6 fl (81-99) 03/02/22 16:36 MCH 29.7 pg (28.0-34.0) 03/02/22 16:36 MCHC 33.2 g/dL (30.0-36.0) 03/02/22 16:36 RDW 14.2 % (12.1-15.1) 03/02/22 16:36 Plt Count 253 10^3/cmm (130-400) 03/02/22 16:36 MPV 10.3 fL (7.4-10.4) 03/02/22 16:36 Neut % (Auto) 51.4 % 03/02/22 16:36 Lymph % (Auto) 36.4 % 03/02/22 16:36 [place] % (Auto) 10.7 % 03/02/22 16:36 Eos % (Auto) 1.0 % 03/02/22 16:36 Baso % (Auto) 0.2 % 03/02/22 16:36 Neut # (Auto) 4.90 10^3/uL (1.8-7.7) 03/02/22 16:36 Lymph # (Auto) 3.5 10^3/uL (0.8-4.8) 03/02/22 16:36 [place] # (Auto) 1.0 10^3/uL (0.2-0.9) H 03/02/22 16:36 Eos # (Auto) 0.1 10^3/uL (0.0-0.8) 03/02/22 16:36 Baso # (Auto) 0.0 10^3/uL (0.0-0.1) 03/02/22 16:36 Nucleated RBC % (auto) 0 % 03/02/22 16:36 Nucleated RBCs # 0.0 /100WBC 03/02/22 16:36 Sodium 140 mmol/L (136-145) 03/02/22 16:36 Potassium 3.7 mmol/L (3.5-5.1) 03/02/22 16:36 Chloride 105 mmol/L (98-107) 03/02/22 16:36 Carbon Dioxide 27 mmol/L (22-29) 03/02/22 16:36 Anion Gap 11.7 (5-19) 03/02/22 16:36 BUN 15 mg/dL (8-23) 03/02/22 16:36 Creatinine 0.6 mg/dL (0.5-0.9) 03/02/22 16:36 GFR Calculation 100.6 mL/min (90-130) 03/02/22 16:36 Glucose 96 mg/dL (65-115) 03/02/22 16:36 Calculated Osmolality 291 mOsm/kg (285-295) 03/02/22 16:36 Calcium 8.5 mg/dL (8.5-10.5) 03/02/22 16:36 Total Bilirubin 0.2 mg/dL (0.15-1.2) 03/02/22 16:36 AST 17 U/L (0-32) 03/02/22 16:36 ALT 22 U/L (0-33) 03/02/22 16:36 Alkaline Phosphatase 84 IU/L (35-105) 03/02/22 16:36 Total Protein 6.6 g/dL (6.6-8.7) 03/02/22 16:36 Albumin 3.9 g/dL (3.5-5.2) 03/02/22 16:36 Globulin 2.7 g/dL (1.3-4.6) 03/02/22 16:36 Lipase 38 U/L (13-60) 03/02/22 16:36 TSH 3.92 uIU/mL (0.27-4.20) 03/02/22 16:36 Free T4 1.43 ng/dL (0.82-1.77) 03/02/22 16:36 Urine Color Yellow (Yellow) 03/02/22 17:18 Urine Appearance Clear (CLEAR) 03/02/22 17:18 Urine pH 6.5 (5-7) 03/02/22 17:18 Ur Specific [place] 1.005 (1.005-1.030) 03/02/22 17:18 Urine Protein Neg (Negative) 03/02/22 17:18 Urine Glucose (UA) Norm (Normal) 03/02/22 17:18 Urine Ketones Negative (Negative) 03/02/22 17:18 Urine Blood Neg (Negative) 03/02/22 17:18 Urine Nitrate Negative (Negative) 03/02/22 17:18 Urine Bilirubin Neg (Negative) 03/02/22 17:18 Urine Urobilinogen Norm mg/dL (Negative) 03/02/22 17:18 Ur Leukocyte Esterase Negative (Negative) 03/02/22 17:18 Salicylates < 0.3 mg/dL (3-10) L 03/02/22 16:36 Urine Opiates Screen Negative ng/mL (Negative) 03/02/22 17:18 Acetaminophen < 5.0 ug/mL (10-30) L 03/02/22 16:36 Ur Barbiturates Screen Negative ng/mL (Negative) 03/02/22 17:18 Ur Phencyclidine Scrn Negative ng/mL (Negative) 03/02/22 17:18 Ur Amphetamines Screen Negative ng/mL (Negative) 03/02/22 17:18 U Benzodiazepines Scrn Negative ng/mL (Negative) 03/02/22 17:18 Urine Cocaine Screen Negative ng/mL (Negative) 03/02/22 17:18 U Marijuana (THC) Screen Negative ng/mL (Negative) 03/02/22 17:18 Ethyl Alcohol < 10 mg/dL (0-10) 03/02/22 16:36 SARS-CoV-2 Ag (Rapid) Negative (Negative) 03/02/22 18:00 Discharge Plan Discharge Patient Disposition: Transfer to ED Clinical Impression: Schizophrenia, Delusion, Paranoia Condition: Stable Prescriptions: No Action sucralfate 1 gram tablet 1 g PO 07,11,16 0RF atorvastatin 10 mg tablet 10 mg PO BEDTIME 0RF escitalopram oxalate 10 mg tablet 20 mg PO DAILY 0RF lithium carbonate 300 mg capsule 300 mg PO 09,21 0RF metoprolol tartrate 25 mg tablet 25 mg PO 09,21 0RF pantoprazole 40 mg tablet,delayed release (DR/EC) 40 mg PO 07,16 0RF clonazepam 0.5 mg Tablet 0.25 mg PO DAILY@1500 30 Days Qty: 15 0RF paliperidone 6 mg Tablet Extended Release 24hr 6 mg PO DAILY 30 Days Qty: 30 1RF lisinopril 10 mg tablet 30 mg PO DAILY 0RF risperidone 1 mg Tablet 1 mg PO BID 0RF Invega Sustenna 156 mg/mL syringe 156 mg IM Q30D 0RF Referrals: Talat Ayala [Primary Care Provider] - Coding Level of Care Code ED Floor Plan Adjuster for Chg Fwd Exam Comprehensive Documented by User: Ashley Woody MD 03/03/22 02:54 HPI - General Adult General: Chief complaint: Psychiatric Symptoms Stated complaint: ANXIETY, POSS UTI Time Seen by Provider: 03/02/22 16:15 PFSH ED PFSH: Medical History Pneumonia due to 2019 novel coronavirus Schizophrenia Social History Smoking and tobacco status: never smoked Alcohol intake: never Course Vital Signs: Vital signs: Vital Signs Temperature 98.9 F 03/03/22 02:31 Pulse Rate 73 03/03/22 02:31 Respiratory Rate 15 03/03/22 02:31 Blood Pressure 137/71 03/03/22 02:31 Pulse Oximetry 96 03/03/22 02:31 MDM - General Adult Medical Decision Making [62]yo patient w/ hx of schizophrenia presenting for dysuria x 3 days and delusion and paranoia x30 days. HDS, exam within normal limit. Thoughts are non-linear and disorganized and the patient has no AH/VH, or HI. Clinically the patient displays no overt toxidrome; they are well appearing, with low suspicion for toxic ingestion given history and exam. Symptoms unlikely 2/2 anemia, hypothyroidism, infection, or ICH. Workup: CBC, CMP, Lipase, salicylate/tylenol, UDS, UA, TSH/free T4, EKG, covid antigen Lab findings: wnl, UA is negative for UTI. [5:11pm] On reassessment, labs and workup wnl. Patient is hemodynamically stable with no acute medical complaints. Case discussed with psychiatric provider Dr. Chan at [facility] psych inpatient with recommendation for transfer to [facility] psych facility as we currently do not have any beds in the hospital. Disposition: Xfer to geriatric psych facility Patient excepted to [facility] will transfer there. Lab Data : 03/02/22 16:36 03/02/22 16:36 Radiology Impressions Chest X-Ray 03/02/22 22:00
[2022-03-02 16:28] VITALS: BP 102/68; PULSE 89; RESP 14; TEMP 36.6; O2SAT 98; BMI 35.4
--- NOTE | 2022-03-02 16:41 | ECG_ITS ---
[facility] Test Date: 2022-03-02 [facility] Name: Jenniffer Hollingsworth Department: Room: Gender: Female Clinical Application Consultant: : 1960 Requested By: Bisi Styles Order Number: [id number] Reading MD: Yocasta Awad M.D. Measurements Intervals [place] Rate: 68 P: 48 MS: 161 QRS: 18 QRSD: 82 T: 55 QT: 394 QTc: 422 Interpretive Statements SINUS RHYTHM LOW QRS VOLTAGE IN PRECORDIAL LEADS [QRS DEFLECTION < 1.0 mV IN CHEST LEADS] NONSPECIFIC T-WAVE ABNORMALITY Compared to ECG 10/20/2021 17:32:59 No significant changes Electronically Signed On 03-03-2022 6:08:46 CDT by Yocasta Awad M.D. [id number]
[2022-03-02 16:47] LABS: Basophils % 0.2 %; Eosinophils # 0.1 10^3/uL (0.0-0.8); Hematocrit 37.1 % (37.0-47.0); Hemoglobin 12.3 g/dL (11.5-15.3); Lymphocytes # 3.5 10^3/uL (0.8-4.8); Lymphocytes % 36.4 %; Mean Corpuscular HGB Conc 33.2 g/dL (30.0-36.0); Mean Corpuscular Hemoglobin 29.7 pg (28.0-34.0); Mean Corpuscular Volume 89.6 fl (81-99); Mean Platelet Volume 10.3 fL (7.4-10.4); Monocytes % 10.7 %; Neutrophils % 51.4 %; Nucleated Red Blood Cells % 0 %; Platelet Count 253 10^3/cmm (130-400); Red Blood Count 4.14 10^6/uL (4.1-5.3); Red Cell Distribution Width 14.2 % (12.1-15.1); White Blood Count 9.6 10^3/uL (4.0-10.0)
[2022-03-02 17:07] LABS: Alanine Aminotransferase 22 U/L (0-33); Albumin Level 3.9 g/dL (3.5-5.2); Alkaline Phosphatase 84 IU/L (35-105); Anion Gap 11.7 (5-19); Aspartate Amino Transferase 17 U/L (0-32); Blood Urea Nitrogen 15 mg/dL (8-23); Calcium 8.5 mg/dL (8.5-10.5); Carbon Dioxide 27 mmol/L (22-29); Chloride 105 mmol/L (98-107); Globulin 2.7 g/dL (1.3-4.6); Glomerular Filtration Rate 100.6 mL/min (90-130); Glucose 96 mg/dL (65-115); Lipase 38 U/L (13-60); Osmolality Calculated 291 mOsm/kg (285-295); Potassium 3.7 mmol/L (3.5-5.1); Sodium 140 mmol/L (136-145); Total Bilirubin 0.2 mg/dL (0.15-1.2); Total Protein 6.6 g/dL (6.6-8.7)
[2022-03-02 17:21] VITALS: BP 102/68; PULSE 89; RESP 14; TEMP 36.6; O2SAT 98
[2022-03-02 17:32] LABS: Add Urine Microscopic? NO; Charge for UA Resulting for Rev
[2022-03-02 17:35] LABS: Urine Color Yellow (Yellow)
[2022-03-02 17:36] LABS: Bilirubin Urine Neg (Negative); Blood Urine Neg (Negative); Glucose Urine UA Norm (Normal); Ketones Urine Negative (Negative); Leukocyte Esterase Urine Negative (Negative); Nitrate Urine Negative (Negative); Protein Urine Neg (Negative); Specific Gravity, Urine 1.005 (1.005-1.030); Urine Appearance Clear (CLEAR); Urobilinogen Urine Norm (Negative); pH Urine 6.5 (5-7)
[2022-03-02 17:43] LABS: Thyroid Stimulating Hormone 3.92 uIU/mL (0.27-4.20)
[2022-03-02 17:44] LABS: Acetaminophen < 5.0 ug/mL (10-30); Salicylate < 0.3 mg/dL (3-10)
[2022-03-02 17:47] LABS: Amphetamines Screen Urine Negative (Negative); Barbiturates Screen Urine Negative (Negative); Benzodiazepines Screen Urine Negative (Negative); Cocaine Screen Urine Negative (Negative); Opiate Screen Urine Negative (Negative); PCP Screen Urine Negative (Negative); THC Screen Urine Negative (Negative)
[2022-03-02 18:34] LABS: SARS Covid-2 Antigen Negative (Negative)
[2022-03-02 20:32] LABS: Free T4 Free Thyroxine 1.43 ng/dL (0.82-1.77)
--- NOTE | 2022-03-02 22:00 | XRR_ITS ---
PROCEDURE INFORMATION: Exam: XR Chest Exam date and time: 03/02/2022 10:11 PM Age: 62 years old Clinical indication: Other: UTI; Additional info: Medical screening TECHNIQUE: Imaging protocol: XR of the chest. Views: 1 view. COMPARISON: CR (CHEST, ) 10/20/2021 5:15 PM FINDINGS: Lungs: Mild atelectasis in the right lung base. The left lung is clear. No consolidation. Pleural spaces: Unremarkable. No pleural effusion. No pneumothorax. Heart/Mediastinum: Unremarkable. No cardiomegaly. Bones/joints: Thoracolumbar fusion hardware. XR/XR chest 1V portable [id number] IMPRESSION: No acute finding.
[2022-03-02 22:24] LABS: Alcohol Level < 10 mg/dL (0-10)
[2022-03-03 02:31] VITALS: BP 137/71; PULSE 73; RESP 15; TEMP 37.2; O2SAT 96
[2022-03-03 03:38] VITALS: BP 130/65; PULSE 70; RESP 16; O2SAT 96
== END 2022-03-03 03:45 ==
PROVIDERS: Emergency Medicine; Emergency Provider Emergency Medicine; PCP Nurse Practitioner Family
DX: F20.9 Schizophrenia, unspecified (principal); R30.0 Dysuria
CPT/HCPCS: 71045; 80053; 80306; 80307; 81003; 83690; 84439; 84443; 85025; 87426; 93005; 99284

== ENCOUNTER 2022-03-26 18:00 | Inpatient (IN) | payer MEDICARE, MEDICAID, SELFPAY ==
[2022-03-26 18:00] VITALS: BMI 34.0
[2022-03-26 19:03] LABS: Basophils % 0.3 %; Eosinophils # 0.1 10^3/uL (0.0-0.8); Eosinophils % 1.2 %; Hematocrit 40.3 % (37.0-47.0); Hemoglobin 13.6 g/dL (11.5-15.3); Lymphocytes # 2.2 10^3/uL (0.8-4.8); Lymphocytes % 22.1 %; Mean Corpuscular HGB Conc 33.7 g/dL (30.0-36.0); Mean Corpuscular Hemoglobin 29.8 pg (28.0-34.0); Mean Corpuscular Volume 88.2 fl (81-99); Mean Platelet Volume 10.4 fL (7.4-10.4); Monocytes # 0.6 10^3/uL (0.2-0.9); Monocytes % 6.2 %; Neutrophils % 69.8 %; Nucleated Red Blood Cells % 0 %; Platelet Count 279 10^3/cmm (130-400); Red Blood Count 4.57 10^6/uL (4.1-5.3); Red Cell Distribution Width 13.2 % (12.1-15.1); White Blood Count 9.9 10^3/uL (4.0-10.0)
[2022-03-26 19:16] LABS: Alanine Aminotransferase 23 U/L (0-33); Albumin Level 4.2 g/dL (3.5-5.2); Alkaline Phosphatase 85 IU/L (35-105); Anion Gap 13.5 (5-19); Aspartate Amino Transferase 15 U/L (0-32); Blood Urea Nitrogen 14 mg/dL (8-23); Calcium 8.6 mg/dL (8.5-10.5); Carbon Dioxide 26 mmol/L (22-29); Chloride 106 mmol/L (98-107); Globulin 2.3 g/dL (1.3-4.6); Glomerular Filtration Rate 100.6 mL/min (90-130); Glucose 116 mg/dL (65-115); Lipase 32 U/L (13-60); Osmolality Calculated 295 mOsm/kg (285-295); Potassium 3.5 mmol/L (3.5-5.1); Sodium 142 mmol/L (136-145); Total Bilirubin 0.4 mg/dL (0.15-1.2); Total Protein 6.5 g/dL (6.6-8.7)
[2022-03-26 19:16] LABS: Add Urine Microscopic? NO; Charge for UA Resulting for Rev
[2022-03-26 19:17] LABS: Bilirubin Urine Neg (Negative); Blood Urine Neg (Negative); Glucose Urine UA Norm (Normal); Ketones Urine Negative (Negative); Leukocyte Esterase Urine Negative (Negative); Nitrate Urine Negative (Negative); Protein Urine Neg (Negative); Urine Appearance Clear (CLEAR); Urine Color Yellow (Yellow); Urobilinogen Urine 1 mg/dL (Negative); pH Urine 7 (5-7)
[2022-03-26 19:19] LABS: Acetaminophen < 5.0 ug/mL (10-30); Salicylate < 0.3 mg/dL (3-10)
[2022-03-26 19:26] LABS: Amphetamines Screen Urine Negative (Negative); Barbiturates Screen Urine Negative (Negative); Benzodiazepines Screen Urine Negative (Negative); Cocaine Screen Urine Negative (Negative); Opiate Screen Urine Negative (Negative); PCP Screen Urine Negative (Negative); THC Screen Urine Negative (Negative)
[2022-03-26 19:31] VITALS: BP 127/85; PULSE 71; RESP 18; O2SAT 96
--- NOTE | 2022-03-26 19:32 | W.ED.GENADLT ---
HPI - General Adult General: Chief complaint: Altered Mental Status Stated complaint: STRESS; HI Time Seen by Provider: 03/26/22 18:31 History of Present Illness: HPI: [62]yo patient w/ hx of schizophrenia BIBA for acute HI and delusion. Patient tells me that she wants to kill her and has a plan to do so. On arrival, the patient is AAOx3 and cooperative with my evaluation. No focal complaints of chest pain, shortness of breath, palpitations, N/V, focal GI/ complaints. Currently denies SI. No complaints of hallucinations. Onset: unknown Duration: ongoing Location: home Severity: severe Associated symptoms: Deny chest pain, dyspnea, nausea, rash, palpitations or vomiting Review of Systems Const: Denies: fever(s) or chills Eyes: Denies: change in vision ENMT: Denies: mouth pain Card: Denies: chest pain or palpitations Resp: Denies: dyspnea or non-productive cough GI: Denies: abdominal pain, nausea, vomiting or diarrhea : Denies: dysuria Musc: Denies: extremity pain Skin/Breast: Denies: rash or new lesions Neuro: Denies: weakness in extremities Psych: Reports: homicidal ideation and other (+delusion and HI) Chris/Lymph: Denies: easy bruising PFSH ED PFSH: Medical History Pneumonia due to 2019 novel coronavirus Schizophrenia Social History (Updated 03/26/22 @ 19:34 by Bisi Styles MD) Smoking and tobacco status: never smoked Alcohol intake: never Substance/Drug Use: never Physical Exam Const: COMMON NORMALS: alert HENMT: COMMON NORMALS: atraumatic HEAD & SCALP: atraumatic MOUTH: moist mucous membranes not abnormal Eye: COMMON NORMALS: EOMs intact bilaterally and conjunctivae normal CONJUNCTIVA: Yes conjunctivae normal Neck/C-Spine: COMMON NORMALS: full ROM and supple Resp: COMMON NORMALS: normal respiratory effort and clear to auscultation bilaterally AUSCULTATION: clear to auscultation bilaterally Cardio: COMMON NORMALS: regular rate RATE: regular rate GI: COMMON NORMALS: Soft to palpation and non-tender PALPATION: Yes Soft to palpation Extremity: COMMON NORMALS: full ROM Neuro: SENSORIUM/ORIENTATION: Yes alert MOTOR EXAM: No Abnormal motor strength present and Other motor observations present (no focal motor deficits) Psych: COMMON NORMALS: speech normal SPEECH: Yes normal speech MOOD & AFFECT: Yes euthymic mood MDM - General Adult Medical Decision Making [62]yo patient w/ hx of schizophrenia presenting for SI and delusion. HDS, exam within normal limit. Clinically the patient displays no overt toxidrome; they are well appearing, with low suspicion for toxic ingestion given history and exam. Symptoms unlikely 2/2 anemia, hypothyroidism, infection, or ICH. Workup: CBC, CMP, Lipase, salicylate/tylenol, UDS Lab findings: wnl On reassessment, labs and workup wnl. Patient is hemodynamically stable with no acute medical complaints. Case discussed with psychiatric provider Dr. Meyers at [facility] psych inpatient with recommendation for admission Disposition: Psych Lab Data : 03/26/22 18:40 03/26/22 18:40 Laboratory Results WBC 9.9 10^3/uL (4.0-10.0) 03/26/22 18:40 RBC 4.57 10^6/uL (4.1-5.3) 03/26/22 18:40 Hgb 13.6 g/dL (11.5-15.3) 03/26/22 18:40 Hct 40.3 % (37.0-47.0) 03/26/22 18:40 MCV 88.2 fl (81-99) 03/26/22 18:40 MCH 29.8 pg (28.0-34.0) 03/26/22 18:40 MCHC 33.7 g/dL (30.0-36.0) 03/26/22 18:40 RDW 13.2 % (12.1-15.1) 03/26/22 18:40 Plt Count 279 10^3/cmm (130-400) 03/26/22 18:40 MPV 10.4 fL (7.4-10.4) 03/26/22 18:40 Neut % (Auto) 69.8 % 03/26/22 18:40 Lymph % (Auto) 22.1 % 03/26/22 18:40 [place] % (Auto) 6.2 % 03/26/22 18:40 Eos % (Auto) 1.2 % 03/26/22 18:40 Baso % (Auto) 0.3 % 03/26/22 18:40 Neut # (Auto) 6.90 10^3/uL (1.8-7.7) 03/26/22 18:40 Lymph # (Auto) 2.2 10^3/uL (0.8-4.8) 03/26/22 18:40 [place] # (Auto) 0.6 10^3/uL (0.2-0.9) 03/26/22 18:40 Eos # (Auto) 0.1 10^3/uL (0.0-0.8) 03/26/22 18:40 Baso # (Auto) 0.0 10^3/uL (0.0-0.1) 03/26/22 18:40 Nucleated RBC % (auto) 0 % 03/26/22 18:40 Nucleated RBCs # 0.0 /100WBC 03/26/22 18:40 Sodium 142 mmol/L (136-145) 03/26/22 18:40 Potassium 3.5 mmol/L (3.5-5.1) 03/26/22 18:40 Chloride 106 mmol/L (98-107) 03/26/22 18:40 Carbon Dioxide 26 mmol/L (22-29) 03/26/22 18:40 Anion Gap 13.5 (5-19) 03/26/22 18:40 BUN 14 mg/dL (8-23) 03/26/22 18:40 Creatinine 0.6 mg/dL (0.5-0.9) 03/26/22 18:40 GFR Calculation 100.6 mL/min (90-130) 03/26/22 18:40 Glucose 116 mg/dL (65-115) H 03/26/22 18:40 Calculated Osmolality 295 mOsm/kg (285-295) 03/26/22 18:40 Calcium 8.6 mg/dL (8.5-10.5) 03/26/22 18:40 Total Bilirubin 0.4 mg/dL (0.15-1.2) 03/26/22 18:40 AST 15 U/L (0-32) 03/26/22 18:40 ALT 23 U/L (0-33) 03/26/22 18:40 Alkaline Phosphatase 85 IU/L (35-105) 03/26/22 18:40 Total Protein 6.5 g/dL (6.6-8.7) L 03/26/22 18:40 Albumin 4.2 g/dL (3.5-5.2) 03/26/22 18:40 Globulin 2.3 g/dL (1.3-4.6) 03/26/22 18:40 Lipase 32 U/L (13-60) 03/26/22 18:40 Urine Color Yellow (Yellow) 03/26/22 19:00 Urine Appearance Clear (CLEAR) 03/26/22 19:00 Urine pH 7 (5-7) 03/26/22 19:00 Ur Specific [place] 1.010 (1.005-1.030) 03/26/22 19:00 Urine Protein Neg (Negative) 03/26/22 19:00 Urine Glucose (UA) Norm (Normal) 03/26/22 19:00 Urine Ketones Negative (Negative) 03/26/22 19:00 Urine Blood Neg (Negative) 03/26/22 19:00 Urine Nitrate Negative (Negative) 03/26/22 19:00 Urine Bilirubin Neg (Negative) 03/26/22 19:00 Urine Urobilinogen 1 mg/dL (Negative) H 03/26/22 19:00 Ur Leukocyte Esterase Negative (Negative) 03/26/22 19:00 Salicylates < 0.3 mg/dL (3-10) L 03/26/22 18:40 Urine Opiates Screen Negative ng/mL (Negative) 03/26/22 19:00 Acetaminophen < 5.0 ug/mL (10-30) L 03/26/22 18:40 Ur Barbiturates Screen Negative ng/mL (Negative) 03/26/22 19:00 Ur Phencyclidine Scrn Negative ng/mL (Negative) 03/26/22 19:00 Ur Amphetamines Screen Negative ng/mL (Negative) 03/26/22 19:00 U Benzodiazepines Scrn Negative ng/mL (Negative) 03/26/22 19:00 Urine Cocaine Screen Negative ng/mL (Negative) 03/26/22 19:00 U Marijuana (THC) Screen Negative ng/mL (Negative) 03/26/22 19:00 Discharge Plan Discharge Patient Disposition: Admitted As Inpatient Clinical Impression: Homicidal ideation, Delusion Condition: Stable Coding Level of Care Code ED Process Development Engineer for Vicki Bach
[2022-03-26 20:00] VITALS: PULSE 74; RESP 17; O2SAT 96
[2022-03-26 21:00] VITALS: PULSE 71; RESP 16; O2SAT 92
[2022-03-26 22:00] VITALS: PULSE 65; RESP 16; O2SAT 95
[2022-03-26 22:43] VITALS: BP 114/49; PULSE 67; RESP 16; O2SAT 95
[2022-03-26 22:56] VITALS: BP 120/83; PULSE 80; RESP 16; TEMP 36.7; O2SAT 95
[2022-03-26 22:57] LABS: Alcohol Level < 10 mg/dL (0-10)
[2022-03-26] MEDS: OLANZapine 5 mg ODT PO (23:41)
--- NOTE | 2022-03-27 00:34 | PC.ADMIT ---
[address] Admission Note: The patient,Jenniffer Hollingsworth,62 y/o, was given written information regarding hospital policies, unit procedures and contact persons. Patient's smoking status: never smoked. Vital Signs - 8 hr 03/26/22 19:31 03/26/22 20:00 03/26/22 21:00 Temperature Pulse Rate 71 74 71 Respiratory Rate 18 17 16 Blood Pressure 127/85 Pulse Oximetry 96 96 92 03/26/22 22:00 03/26/22 22:43 03/26/22 22:56 Temperature 98.1 F Pulse Rate 65 67 80 Respiratory Rate 16 16 16 Blood Pressure 114/49 120/83 Pulse Oximetry 95 95 95 Patient calm and cooperative with admission. Alert and oriented to self, situation, and place, with delayed speech. Patient denies hearing problems. Takes a while to respond to questions and needs questions repeated and explained. Stares blankly at times. Patient stated her brought her into ER because she told him she was having thoughts of hurting him. She states the devil has been after her and she knows the devil wants her to kill her because she can just feel it . Patient denies SI/AVH. She states these feelings have been going on for approximately a week. When asked if she ever followed up with outpt psych, she shook her head no. Patient given snack, oriented to unit and room, changed to green scrubs and head to toe assessment done.
[2022-03-27] MEDS: metoprolol tartrate 25 mg Tablet PO ×3 (00:35→19:40)
[2022-03-27] MEDS: lithium carbonate 300 mg Capsule PO ×3 (00:35→19:40)
[2022-03-27] MEDS: atorvastatin 40 mg Tablet 10 MG PO ×2 (00:36→19:40)
[2022-03-27] MEDS: CLONazepam 0.5 mg Tablet PO ×4 (00:36→19:40)
[2022-03-27] MEDS: sucralfate 1 gm Tablet PO ×3 (05:53→16:48)
[2022-03-27] MEDS: pantoprazole DR 40 mg Tablet PO ×2 (05:53→16:48)
[2022-03-27 06:00] VITALS: BP 122/77; PULSE 65; RESP 16; TEMP 36.9; O2SAT 97
[2022-03-27] MEDS: escitalopram 10 mg Tablet 20 MG PO (08:52)
[2022-03-27] MEDS: paliperidone ER 6 mg Tablet PO (08:53)
[2022-03-27] MEDS: lisinopril 10 mg Tablet 30 MG PO (08:53)
[2022-03-27] MEDS: paliperidone palmitate 156 mg Syringe IM (08:56)
--- NOTE | 2022-03-27 11:28 | W.PM.NPUH&PS ---
Providers/Chief Complaint Admitting Physician: Kurt Meyers MD Primary Care Provider: Talat Ayala Chief Complaint: STRESS; HI HPI NPU History of Present Illness Jenniffer Hollingsworth is a 62 year old female who was admitted through our emergency department with the following report: HPI: [62]yo patient w/ hx of schizophrenia BIBA for acute HI and delusion.? Patient tells me that she wants to kill her and has a plan to do so.? On arrival, the patient is AAOx3 and cooperative with my evaluation. No focal complaints of chest pain, shortness of breath, palpitations, N/V, focal GI/ complaints. Currently denies SI. No complaints of hallucinations. She was admitted to the neuropsychiatry unit for definitive treatment of these issues. She was admitted here in February and discharged on February 14 on Invega 6 mg daily, Lexapro 10 mg daily, clonazepam 0.5 mg 3 times daily and lithium 300 mg twice a day. It was hoped that the clonazepam would be gradually titrated down over time. Her said that she was supposed to take the Invega for a month after she got the injections so it is assumed that she was still taking the Invega 6 mg. Her reports that she was brought to our emergency room on March 02. That emergency room note is below. We did not have any beds in a took her to a facility called [facility] . According to her , they took her off of the clonazepam, Invega tablets and lithium and started her back on risperidone 1 mg twice a day. When she came home she was hallucinating horribly according to the . He eventually contacted Dr. Beltrán and got permission to restart the lithium and clonazepam. She slept for about 12 hours after restarting those but then that hallucinations were completely gone. She was then back at her baseline but started saying that she felt like killing her over this last weekend. HPI: [62]yo patient w/ hx of schizophrenia BIBA for hearing voices x 30 days and dysuria x 3 days.? Per patient's , patient has had urinary urgency for the last 3 days.? Out of bed for the last 30 days, patient tells me that Hugh has been sending me photos. ? Patient's is? worried about patient's mental health and would like patient to be seen and evaluated in a psychiatric facility.? On arrival, the patient is AAOx3 and cooperative with my evaluation. No focal complaints of chest pain, shortness of breath, palpitations, N/V, focal GI/ complaints. Currently denies SI/HI. No complaints of hallucinations. Discharge summary from February 14, 2022. Discharge Diagnosis (1) Delirium: ?Status:?Acute (2) Schizoaffective disorder: ?Status:?Acute (3) Dementia: ?Status:?Acute (4) Delusion: ?Status:?Acute (5) Paranoia: ?Status:?Acute PSYCH EVAL? Brief History: History of Present Illness Jenniffer Hollingsworth is a 62 year old female who presented to the emergency department with the following report: Chief complaint: Psychiatric Symptoms Stated complaint: PSYCH EVAL Time Seen by Provider: 02/04/22 15:56? History of Present Illness: ? HPI: [62]yo patient w/ hx of depression BIBA for worsening delusion and paranoia.? Patient tells me that Hugh wants to kill me. for On arrival, the patient is AAOx3 and cooperative with my evaluation. No focal complaints of chest pain, shortness of breath, palpitations, N/V, focal GI/ complaints. Currently denies SI/HI. No complaints of hallucinations. Onset: acute Duration: ongoing Location: home Severity: severe Associated symptoms: Deny chest pain, dyspnea, nausea, rash, palpitations or vomiting She was admitted to the neuropsychiatric unit for definitive treatment of those issues. She presents as a fairly poor historian secondary to possible dementia which it appears she carried since at least 2011. She reports that she has been psychiatrically hospitalized twice but she has been hospitalized at least 9 or 10 times here at [facility]. She reports that she was hospitalized about 5 years ago in [place] and had been living closer to [place] which may be why she is not showing up in the system after 2011 here and then showed back up in some capacity in 2019 but has not been engaged in psychiatric services that can be seen in the system. She has had outpatient services at [facility] which went until around 2012 after which she must have moved because she has not been in psychiatric services in the system since then. She is currently on medication and says she has been on medication for a while but is experiencing current breakthrough symptoms reportedly on the medications. She denies tobacco, alcohol, marijuana or any other illicit drug use. She has not been to rehab or had any DUIs. She reports that her psychiatric concerns started recently but we can see psychiatric treatment going back at least to 2004. It is likely that she has been getting treatment in [place] and that is where her medications are probably being managed but she doesn?t know when she moved to [place] and overall is a poor historian likely secondary to this dementing condition with reports that she was on Aricpt and Nanemda as far back as 2011. She reports the reason why she is here is because the devil has a picture on her phone and she came here to see if it could be taken off. She reports that she did have a suicide attempt 5 years ago which sent her to [facility] and according to the system she had what was ken to a suicidal gesture prior to 2011. She denies any history of self-injurious behaviors. We discussed the risks, benefits and alternatives of us getting some collateral information to figure out what has been going on with medication and find out why she possibly stopped Abilify in the past or see if she has been on something like Invega to possibly replace her current medications versus increase the dose of her current medications which include Lexapro and Risperdal. Additionally we discussed the fact that she is on Klonopin 0.5mg tid and that might also be causing some of the problems she is having and will get collateral information to make decisions about that but she agreed to proceed as is documented in this note. Hospital Course She very slowly acclimated to the individual, group and milieu therapies provided.? We discontinued her Risperdal and added Invega with good response.? We also began the process of a slow taper off of her Klonopin which was 0.5 mg 3 times a day.? We decreased it to 0.5 mg twice daily and 0.25 mg p.o. q. afternoon with a regular possibly decrease 0.25 mg every 2 to 4 weeks as tolerated.? She demonstrated modest improvement and was able to contract for safety prior to discharge.? Her likely superimposed dementia complicated her stay.? During the hospitalization, patient had routine laboratory studies which were within normal limits except for few outliers.? Additionally there was a general medical evaluation which was also within normal limits and revealed no new acute processes. Discharge Summary: At the time of discharge, lethality was denied and psychosis was resolving.? Mood and anxiety were well managed.? Patient endorsed a plan to avoid all drugs of abuse and follow-up with the aftercare recommendations of the treatment team.? Patient was evaluated and deemed to be absent credible lethality, and had achieved the maximum benefit from an inpatient hospitalization, so was discharged. Discharge Plan Discharge Patient Disposition: Home Condition: Stable Prescriptions: New ? clonazepam 0.5 mg Tablet ?? 0.25 mg PO DAILY@1500 30 Days Qty: 15 0RF ?? Rx Instructions: ?? Discontinue afternoon dose when these pills are gone ? clonazepam 0.5 mg Tablet ?? 0.5 mg PO BID@0900,2100 30 Days Qty: 60 1RF ? paliperidone 6 mg Tablet Extended Release 24hr ?? 6 mg PO DAILY 30 Days Qty: 30 1RF Continued ? sucralfate 1 gram tablet ?? 1 g PO ,,16 0RF ? atorvastatin 10 mg tablet ?? 10 mg PO BEDTIME 0RF ? escitalopram oxalate 10 mg tablet ?? 10 mg PO DAILY 0RF ? lithium carbonate 300 mg capsule ?? 300 mg PO ,21 0RF ? metoprolol tartrate 25 mg tablet ?? 25 mg PO , 0RF ? pantoprazole 40 mg tablet,delayed release (DR/EC) ?? 40 mg PO ,16 0RF Discontinued ? clonazepam 0.5 mg tablet ?? 0.5 mg PO TID 0RF ? risperidone 1 mg tablet ?? 1 mg PO ,21 0RF Meds NPU Home Medications Medication Instructions Recorded Confirmed Last Taken Type sucralfate 1 gram tablet 1 g PO 07,,09/08/20 03/27/22 03/26/22 History atorvastatin 10 mg tablet 10 mg PO BEDTIME 02/04/22 03/27/22 03/26/22 History escitalopram oxalate 10 mg tablet 20 mg PO DAILY 02/04/22 03/27/22 03/26/22 History lithium carbonate 300 mg capsule 300 mg PO ,02/04/22 03/27/22 03/26/22 History metoprolol tartrate 25 mg tablet 25 mg PO ,02/04/22 03/27/22 03/26/22 History pantoprazole 40 mg tablet,delayed 40 mg PO ,16 02/04/22 03/27/22 03/26/22 History release paliperidone 6 mg tablet,extended 6 mg PO DAILY 30 Days #30 tab 02/14/22 03/27/22 03/26/22 Rx release 24 hr lisinopril 10 mg tablet 30 mg PO DAILY 03/02/22 03/27/22 03/26/22 History paliperidone palmitate 156 mg/mL 156 mg IM Q30D 03/02/22 03/27/22 02/21/22 History intramuscular syringe (Invega Sustenna) clonazepam 0.5 mg tablet 0.5 mg PO TID@03/26/22 03/26/22 03/26/22 History Allergies Allergy/AdvReac Type Severity Reaction Status Date / Time No Known Allergies Allergy Verified 10/20/21 15:42 PFS NPU PFS: Medical History Pneumonia due to 2019 novel coronavirus Schizophrenia Social History (Updated 03/26/22 @ 19:34 by Bisi Styles MD) Smoking and tobacco status: never smoked Alcohol intake: never Substance/Drug Use: never Mental Status Exam MSE Comments: This is a 62-year-old obese female who appears approximately her stated age and is in no acute distress. She was in bed asleep when I entered her room at 11 AM. She woke up but did not sit up. psychomotor activity decreased. Speech is at a regular rate and rhythm, normal volume, good articulation, not pressured. There is no spontaneous speech. Alert, oriented X2. She had difficulty saying where she was in [place]. When told she was in the hospital she eventually said that she was here for depression. She was able to fairly quickly say the date. She does not know any recent events. She does not know about [facility] of the [facility]. Attention and concentration appears to be decreased. Memory is intact Mood is depressed. Affect is mildly dysphoric. Thought process is difficult to discern. There is no spontaneous speech Thought content: Denies auditory and visual hallucinations. She says that she does have thoughts of killing her . She assumes these come from the devil. No current suicidal ideation. Fund of knowledge is decreased. Insight and judgment appear to be poor. Impulse control is fairly good as far as we know Vitals/I&O/Wt Last Vital Signs Temp 98.4 F 03/27/22 06:00 Pulse 65 03/27/22 06:00 Resp 16 03/27/22 06:00 BP 122/77 03/27/22 06:00 Pulse Ox 97 03/27/22 06:00 Weight last 48 hrs Weight 87.09 kg Data NPU : 03/26/22 18:40 03/26/22 18:40 A&P Assessment and plan (1) Homicidal ideation: Status: Acute (2) Schizoaffective disorder: Status: Acute (3) Dementia: Status: Acute Plan This is a 62-year-old female with schizophrenia and dementia who has had thoughts of killing her which she feels comes from the devil Plan: 1. Continue current medication. We will add back Invega 6 mg and will probably increase the upcoming Invega Sustenna injection. 2. Continue every 15 minute checks for safety. 3. Encourage individual, group and milieu therapies. 4. Encourage sober living treatment after discharge at the highest level of care to which she is willing to commit. 5. We will monitor for safety for herself in the community prior to discharge. Involuntary Hold Information 96 Hour Hold: 96 Hour Involuntary Admission: No Attestations NPU Medical Necessity Statement*: Inpatient hospitalization is medically necessary and the clinically appropriate intervention at this time. We will initiate medications and make changes as indicated. She will be in the hospital for over 2 midnights. 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
[2022-03-27 14:00] VITALS: BP 100/61; PULSE 75; RESP 20; TEMP 36.7; O2SAT 96
[2022-03-27] MEDS: OLANZapine 5 mg ODT PO (14:00)
[2022-03-27] MEDS: hyDROXYzine 25 mg Capsule 50 MG PO (19:40)
[2022-03-27 20:22] VITALS: BP 94/59; PULSE 82; RESP 16; TEMP 36.7; O2SAT 96
[2022-03-28 06:00] VITALS: BP 115/76; PULSE 65; RESP 17; TEMP 36.8; O2SAT 95
[2022-03-28] MEDS: sucralfate 1 gm Tablet PO ×3 (06:08→14:27)
[2022-03-28] MEDS: pantoprazole DR 40 mg Tablet PO ×2 (06:08→14:27)
[2022-03-28] MEDS: metoprolol tartrate 25 mg Tablet PO ×2 (11:11→20:25)
[2022-03-28] MEDS: paliperidone ER 6 mg Tablet PO (11:11)
[2022-03-28] MEDS: lisinopril 10 mg Tablet 30 MG PO (11:12)
[2022-03-28] MEDS: CLONazepam 0.5 mg Tablet PO ×3 (11:12→20:25)
[2022-03-28] MEDS: escitalopram 10 mg Tablet 20 MG PO (11:12)
[2022-03-28] MEDS: lithium carbonate 300 mg Capsule PO ×2 (11:12→20:25)
--- NOTE | 2022-03-28 12:02 | P.NPUPN_ITS ---
Subjective NPU Subjective: She was found in bed at noon. She said that she had been in bed all day. She says that she does not feel well. When asked what is wrong she says depression. She does not have thoughts today about killing her . She was encouraged to get out of bed and interact with others. She was encouraged to go to groups and to watch television or anything rather than staying in bed all day. Mental Status Exam MSE Comments: This is a 62-year-old obese female who appears approximately her stated age and is in no acute distress. She was in bed asleep when I entered her room at 12 PM. She woke up easily but did not sit up. psychomotor activity decreased. Speech is at a regular rate and rhythm, normal volume, good articulation, not pressured. There is no spontaneous speech. Alert, oriented X2. Attention and concentration appears to be decreased. Memory is intact Mood is depressed. Affect is mildly dysphoric. Thought process is difficult to discern. There is no spontaneous speech Thought content: Denies auditory and visual hallucinations. She denies thoughts of killing her . No current suicidal ideation. Fund of knowledge is decreased. Insight and judgment appear to be poor. Impulse control is fairly good as far as we know Cognition: Patient Appearance: Appropriate Level of Consciousness: Awake, Appropriate, Follows Commands and Drowsy Patient Cognition Impaired: Yes Ability to Follow Directions: Good Patient Orientation (long list): Person, Place, Name and Age Comprehension Ability: Moderate Impairment Hallucination Type: None Delusion Description: Not Present Thought Process: Appropriate Affect: Affect Description: Calm Behavior: Patient Behavior: Appropriate Speech Pattern: Clear Vitals/I&O/Wt Last Vital Signs Temp 98.2 F 03/28/22 06:00 Pulse 65 03/28/22 06:00 Resp 17 03/28/22 06:00 BP 115/76 03/28/22 06:00 Pulse Ox 95 03/28/22 06:00 Weight last 48 hrs Weight 87.09 kg Data NPU : 03/26/22 18:40 03/26/22 18:40 A&P Assessment and plan (1) Homicidal ideation: Status: Acute (2) Schizoaffective disorder: Status: Acute (3) Dementia: Status: Acute Plan This is a 62-year-old female with schizophrenia and dementia who has had thoughts of killing her which she feels comes from the devil Plan: 1. Continue current medication. We will add back Invega 6 mg and will probably increase the upcoming Invega Sustenna injection. 2. Continue every 15 minute checks for safety. 3. Encourage individual, group and milieu therapies. 4. Encourage sober living treatment after discharge at the highest level of care to which she is willing to commit. 5. We will monitor for safety for herself in the community prior to discharge. Involuntary Hold Information 96 Hour Hold: 96 Hour Involuntary Admission: No Attestations NPU Medical Necessity Statement*: Inpatient hospitalization is medically necessary and the clinically appropriate intervention at this time. We will initiate medications and make changes as indicated. Coding Level of Care Code Acute Relationship Banker for g Fwd Diagnoses Homicidal ideation R45.850 Schizoaffective disorder F25.9 Dementia F03.90
[2022-03-28 14:00] VITALS: BP 112/79; PULSE 79; RESP 18; TEMP 36.9; O2SAT 97
[2022-03-28] MEDS: OLANZapine 5 mg ODT PO (16:29)
--- NOTE | 2022-03-28 18:48 | PC.NURSE ---
7512 Pt stated that she was anxious, nurse administered Zyprexa Zydis at this time.
[2022-03-28 19:58] VITALS: BP 99/63; PULSE 76; RESP 17; TEMP 36.9; O2SAT 95
[2022-03-28] MEDS: atorvastatin 40 mg Tablet 10 MG PO (20:24)
[2022-03-29 06:00] VITALS: BP 117/77; PULSE 67; RESP 16; TEMP 36.6; O2SAT 95
[2022-03-29] MEDS: pantoprazole DR 40 mg Tablet PO ×2 (06:05→14:46)
[2022-03-29] MEDS: sucralfate 1 gm Tablet PO ×3 (06:05→14:46)
--- NOTE | 2022-03-29 08:19 | P.NPUPN_ITS ---
Subjective NPU Subjective: She says that she slept well last night. She has some stomach upset this morning and does not feel very well. She denies having any thoughts of wanting to harm her since she has been here. geriatric social worker is working with her to look into fpc placement. Mental Status Exam MSE Comments: This is a 62-year-old obese female who appears approximately her stated age and is in no acute distress. She was in bed asleep when I entered her room at 815 AM. She woke up easily but did not sit up. psychomotor activity decreased. Speech is at a regular rate and rhythm, normal volume, good articulation, not pressured. There is no spontaneous speech. Alert, oriented X2. Attention and concentration appears to be decreased. Memory is intact Mood is depressed. Affect is mildly dysphoric. Thought process is difficult to discern. There is no spontaneous speech Thought content: Denies auditory and visual hallucinations. She denies thoughts of killing her . No current suicidal ideation. Fund of knowledge is decreased. Insight and judgment appear to be poor. Impulse control is fairly good as far as we know Cognition: Patient Appearance: Appropriate Level of Consciousness: Awake, Appropriate, Follows Commands and Drowsy Patient Cognition Impaired: Yes Ability to Follow Directions: Good Patient Orientation (long list): Person, Place, Name and Age Comprehension Ability: Moderate Impairment Hallucination Type: None Delusion Description: Not Present Thought Process: Appropriate Affect: Affect Description: Calm Behavior: Patient Behavior: Appropriate Speech Pattern: Appropriate Vitals/I&O/Wt Last Vital Signs Temp 97.8 F 03/29/22 06:00 Pulse 67 03/29/22 06:00 Resp 16 03/29/22 06:00 BP 117/77 03/29/22 06:00 Pulse Ox 95 03/29/22 06:00 Data NPU : 03/26/22 18:40 03/26/22 18:40 A&P Assessment and plan (1) Homicidal ideation: Status: Acute (2) Schizoaffective disorder: Status: Acute (3) Dementia: Status: Acute Plan This is a 62-year-old female with schizophrenia and dementia who has had thoughts of killing her which she feels comes from the devil Plan: 1. Continue current medication. We will add back Invega 6 mg and Invega Sustenna 156 mg on March 27, 2022. 2. Continue every 15 minute checks for safety. 3. Encourage individual, group and milieu therapies. 4. Encourage sober living treatment after discharge at the highest level of care to which she is willing to commit. 5. We will monitor for safety for herself in the community prior to discharge. Involuntary Hold Information 96 Hour Hold: 96 Hour Involuntary Admission: No Attestations NPU Medical Necessity Statement*: Inpatient hospitalization is medically necessary and the clinically appropriate intervention at this time. We will initiate medications and make changes as indicated. 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
[2022-03-29] MEDS: acetaminophen 325 mg Tablet 650 MG PO (08:33)
[2022-03-29] MEDS: lithium carbonate 300 mg Capsule PO ×2 (08:33→20:16)
[2022-03-29] MEDS: CLONazepam 0.5 mg Tablet PO ×3 (08:33→20:16)
[2022-03-29] MEDS: escitalopram 10 mg Tablet 20 MG PO (08:33)
[2022-03-29] MEDS: ondansetron 4 MG Tablet PO (08:34)
[2022-03-29] MEDS: paliperidone ER 6 mg Tablet PO (08:34)
[2022-03-29] MEDS: lisinopril 10 mg Tablet 30 MG PO (08:34)
[2022-03-29] MEDS: metoprolol tartrate 25 mg Tablet PO ×2 (08:34→20:16)
[2022-03-29 14:00] VITALS: PULSE 71; RESP 16; TEMP 36.6; O2SAT 95
[2022-03-29 15:50] VITALS: BP 101/69
[2022-03-29] MEDS: atorvastatin 40 mg Tablet 10 MG PO (20:15)
[2022-03-29 20:51] VITALS: BP 86/51; PULSE 78; RESP 20; TEMP 36.8; O2SAT 96
[2022-03-30 06:00] VITALS: BP 95/58; PULSE 77; RESP 16; O2SAT 95
[2022-03-30] MEDS: sucralfate 1 gm Tablet PO ×3 (06:35→15:27)
[2022-03-30] MEDS: pantoprazole DR 40 mg Tablet PO ×2 (06:35→15:28)
[2022-03-30] MEDS: lithium carbonate 300 mg Capsule PO ×2 (08:30→20:32)
[2022-03-30] MEDS: escitalopram 10 mg Tablet 20 MG PO (08:30)
[2022-03-30] MEDS: lisinopril 10 mg Tablet 30 MG PO (08:30)
[2022-03-30] MEDS: paliperidone ER 6 mg Tablet PO (08:30)
[2022-03-30] MEDS: metoprolol tartrate 25 mg Tablet PO (08:30)
[2022-03-30] MEDS: CLONazepam 0.5 mg Tablet PO ×3 (08:30→20:32)
--- NOTE | 2022-03-30 12:59 | W.PM.NPUPNS ---
Subjective NPU Subjective: Patient presents today reporting that she is doing fine on the medications at the present we are she reports that she did in fact started having a return of the symptoms of hallucinations and having paranoid thoughts about her . She reports that since has been here those symptoms have diminished some but she still is thinking about her and this today. We discussed continuing the plan with the Invega injections with the plan of increasing the dose of her monthly injection and once again expressed concern about the Klonopin as a long-term solution and the need for geriatric insight into her treatment. Mental Status Exam MSE Comments: This is an obese elderly white female looking older than her stated age with hospital scrubs on with limited grooming and eye contact. No abnormal movements except for psychomotor retardation lying in bed. Cooperative with exam in mild distress. Speech was decreased rate, but normal volume. Mood described as not good, affect subdued. Thought process, organized. Thought content: patient denied suicidal or homicidal ideation, but did report that the devil wants her , no delusions reported but issues with hyperreligious, paranoid delusions existed. She did endorse hearing and seeing things. Attention and concentration were intact and memory appeared reliable but none were formally tested. She is alert and oriented three times. Insight and judgment are impaired. Impulse control is impaired. Vitals/I&O/Wt Last Vital Signs Temp 98.2 F 03/29/22 20:51 Pulse 77 03/30/22 06:00 Resp 16 03/30/22 06:00 BP 95/58 03/30/22 06:00 Pulse Ox 95 03/30/22 06:00 Data NPU : 03/26/22 18:40 03/26/22 18:40 A&P Assessment and plan (1) Homicidal ideation: Status: Acute (2) Schizoaffective disorder: Status: Acute (3) Dementia: Status: Acute Plan This is a 62-year-old female with schizophrenia and dementia known from previous hospitalizations who returns with thoughts of killing her which she feels comes from the devil Plan: 1.? Continue current medication.? We will add back Invega 6 mg and Invega Sustenna 156 mg on March 27, 2022. Plan to increase monthly dose and then consider discontinuing oral again. Get collateral information but feel the decrease in the Klonopin in a slow process is still appropriate strategy. 2.? Continue every 15 minute checks for safety. 3.? Encourage individual, group and milieu therapies. 4.? We will recommend geriatric psychiatry follow-up if possible. Involuntary Hold Information 96 Hour Hold: 96 Hour Involuntary Admission: No Attestations NPU Medical Necessity Statement*: Inpatient hospitalization is medically necessary and the clinically appropriate intervention at this time.? We will initiate medications and make changes as indicated.? Likely length of stay 4-6 days Coding Level of Care Code Acute Director Fixed Income for [facility] Fwd Diagnoses Homicidal ideation R45.850 Schizoaffective disorder F25.9 Dementia F03.90
[2022-03-30 13:21] VITALS: BP 95/58; PULSE 77; RESP 16; TEMP 36.8; O2SAT 95
[2022-03-30] MEDS: hyDROXYzine 25 mg Capsule 50 MG PO (15:27)
[2022-03-30] MEDS: atorvastatin 40 mg Tablet 10 MG PO (20:32)
[2022-03-30 21:19] VITALS: BP 104/65; PULSE 72; RESP 20; TEMP 36.6; O2SAT 95
[2022-03-31 06:00] VITALS: BP 108/67; PULSE 94; RESP 16; TEMP 36.6; O2SAT 93
[2022-03-31] MEDS: pantoprazole DR 40 mg Tablet PO (06:33)
[2022-03-31] MEDS: sucralfate 1 gm Tablet PO ×2 (06:33→13:09)
[2022-03-31] MEDS: lithium carbonate 300 mg Capsule PO ×2 (10:23→21:04)
[2022-03-31] MEDS: lisinopril 10 mg Tablet 30 MG PO (10:24)
[2022-03-31] MEDS: CLONazepam 0.5 mg Tablet PO ×2 (10:24→21:04)
[2022-03-31] MEDS: escitalopram 10 mg Tablet 20 MG PO (10:25)
[2022-03-31] MEDS: metoprolol tartrate 25 mg Tablet PO ×2 (10:25→21:04)
[2022-03-31] MEDS: paliperidone ER 6 mg Tablet PO (10:25)
[2022-03-31 13:01] VITALS: BP 121/85; PULSE 83; RESP 20; TEMP 37; O2SAT 98
--- NOTE | 2022-03-31 13:39 | P.NPUPN_ITS ---
Subjective NPU Subjective: Patient presents today seeming less with it than yesterday. Today she was having lots of somatic complaints and was tearful. Kept endorsing that she just did not feel good and was saying she was sad. She reported that she was open to some of the options that the routine discussed with her. We continued to express concerns that a longer view of her presentation was needed not just abrupt changes. Mental Status Exam MSE Comments: This is an obese elderly white female looking older than her st ated age with hospital scrubs on with limited grooming and eye contact. No abnormal movements except for psychomotor retardation lying in bed. Cooperative with exam in moderate distress. Speech was decreased rate, but normal volume. Mood described as sad, affect subdued and tearful. Thought process, somewhat organized. Thought content: patient denied suicidal or homicidal ideation, but did report that the devil wants her , no delusions reported but issues with hyperreligious, paranoid delusions existed. She did endorse hearing and seeing things. Attention and concentration were intact and memory appeared reliable but none were formally tested. She is alert and oriented three times. Insight and judgment are impaired. Impulse control is impaired. Vitals/I&O/Wt Last Vital Signs Temp 98.6 F 03/31/22 13:01 Pulse 83 03/31/22 13:01 Resp 20 H 03/31/22 13:01 BP 121/85 03/31/22 13:01 Pulse Ox 98 03/31/22 13:01 Data NPU : 03/26/22 18:40 03/26/22 18:40 A&P Assessment and plan (1) Homicidal ideation: Status: Acute (2) Schizoaffective disorder: Status: Acute (3) Dementia: Status: Acute (4) Delusion: Status: Acute Plan This is a 62-year-old female with schizophrenia and dementia known from previous hospitalizations who returns with thoughts of killing her which she feels comes from the devil Plan: 1.? Continue current medication.? We will add back Invega 6 mg and Invega Sustenna 156 mg on March 27, 2022.? Plan to increase monthly dose and then consider discontinuing oral again.? Get collateral information but feel the decrease in the Klonopin in a slow process is still appropriate strategy. 2.? Continue every 15 minute checks for safety. 3.? Encourage individual, group and milieu therapies. 4.? We will recommend geriatric psychiatry follow-up if possible. Patient continues to exhibit symptoms that would warrant geriatric follow-up and believe she would best be managed in a geriatric facility if she were to return. Involuntary Hold Information 96 Hour Hold: 96 Hour Involuntary Admission: No Attestations NPU Medical Necessity Statement*: Inpatient hospitalization is medically necessary and the clinically appropriate intervention at this time.? We will initiate medications and make changes as indicated.? Likely length of stay 4-6 days Coding Level of Care Code Acute Paint Formulator for g Fwd Diagnoses Homicidal ideation R45.850 Schizoaffective disorder F25.9 Dementia F03.90 Delusion F22
[2022-03-31] MEDS: CLONazepam 0.5 mg Tablet 0.25 MG PO (15:07)
[2022-03-31] MEDS: hyDROXYzine 25 mg Capsule 50 MG PO (15:31)
[2022-03-31] MEDS: OLANZapine 5 mg ODT PO (16:29)
[2022-03-31 20:10] VITALS: BP 107/72; PULSE 75; RESP 18; O2SAT 95
[2022-03-31] MEDS: atorvastatin 40 mg Tablet 10 MG PO (21:04)
[2022-04-01 06:00] VITALS: BP 120/82; PULSE 73; RESP 18; O2SAT 96
[2022-04-01] MEDS: sucralfate 1 gm Tablet PO ×3 (06:03→16:59)
[2022-04-01] MEDS: pantoprazole DR 40 mg Tablet PO ×2 (06:03→16:59)
[2022-04-01] MEDS: paliperidone ER 6 mg Tablet PO (08:18)
[2022-04-01] MEDS: lithium carbonate 300 mg Capsule PO ×2 (08:18→20:51)
[2022-04-01] MEDS: escitalopram 10 mg Tablet 20 MG PO (08:18)
[2022-04-01] MEDS: CLONazepam 0.5 mg Tablet PO ×2 (08:18→20:51)
[2022-04-01] MEDS: metoprolol tartrate 25 mg Tablet PO ×2 (08:19→20:51)
[2022-04-01] MEDS: lisinopril 10 mg Tablet 30 MG PO (08:19)
--- NOTE | 2022-04-01 13:42 | P.NPUPN_ITS ---
Subjective NPU Subjective: Patient is a looking a little less distraught and reporting that she is feeling a little better. Specifically she reports that she does still think about the devil but not all the time. She reported that thoughts of negativity or hurting her are diminished as well. She reports he does not feel sick for bad like she was feeling yesterday. But she also reports that she does not feel completely better either. She reports the thoughts being a little less intrusive and we discussed the fact that we were working on paperwork to explore a facility for her to discharge to for her continued convalescence. Mental Status Exam MSE Comments: This is an obese elderly white female looking older than her stated age with hospital scrubs on with limited grooming and eye contact. No abnormal movements except for psychomotor retardation as she walks slowly with mild gait instability. Cooperative with exam in no acute distress. Speech was decreased rate, but normal volume. Mood described as a little better, affect subdued.? Thought process, somewhat organized. Thought content: patient denied suicidal or homicidal ideation, she only endorsed that thoughts about harming her existed when asked. No delusions reported but issues with hyperreligious, paranoid delusions existed. She did not endorse auditory or visual hallucinations today. Attention and concentration were intact and memory appeared more reliable but none were formally tested. She is alert and oriented three times. Insight and judgment are impaired. Impulse control is impaired. Vitals/I&O/Wt Last Vital Signs Temp 98.6 F 03/31/22 13:01 Pulse 73 04/01/22 06:00 Resp 18 04/01/22 06:00 BP 120/82 04/01/22 06:00 Pulse Ox 96 04/01/22 06:00 Data NPU : 03/26/22 18:40 03/26/22 18:40 A&P Assessment and plan (1) Homicidal ideation: Status: Acute (2) Schizoaffective disorder: Status: Acute (3) Dementia: Status: Acute (4) Delusion: Status: Acute Plan This is a 62-year-old female with schizophrenia and dementia known from previous hospitalizations who returns with thoughts of killing her which she feels comes from the devil Plan: 1.? Continue current medication.? We will add back Invega 6 mg and Invega Sustenna 156 mg on March 27, 2022.? Plan to increase monthly dose and then consider discontinuing oral again.? Klonopin 0.5 mg p.o. 3 times daily was dropped to 0.5 mg p.o. twice daily and 0.25 mg q. afternoon and a slow taper process that should go on after she is discharged. 2.? Continue every 15 minute checks for safety. 3.? Encourage individual, group and milieu therapies. 4.? We will recommend geriatric psychiatry follow-up if possible.? Patient continues to exhibit symptoms that would warrant geriatric follow-up and believe she would best be managed in a geriatric facility if she were to return. Involuntary Hold Information 96 Hour Hold: 96 Hour Involuntary Admission: No Attestations NPU Medical Necessity Statement*: Inpatient hospitalization is medically necessary and the clinically appropriate intervention at this time.? We will initiate medications and make changes as indicated.? Likely length of stay 4-6 days Coding Level of Care Code Acute Senior Web Designer for g Fwd Diagnoses Homicidal ideation R45.850 Schizoaffective disorder F25.9 Dementia F03.90 Delusion F22
[2022-04-01 14:00] VITALS: BP 102/68; PULSE 89; RESP 17; TEMP 36.8; O2SAT 98
[2022-04-01] MEDS: CLONazepam 0.5 mg Tablet 0.25 MG PO (15:13)
[2022-04-01 20:15] VITALS: BP 107/69; PULSE 80; RESP 20; TEMP 36.5; O2SAT 93
[2022-04-01] MEDS: atorvastatin 40 mg Tablet 10 MG PO (20:51)
[2022-04-02] MEDS: sucralfate 1 gm Tablet PO ×3 (05:11→16:19)
[2022-04-02] MEDS: pantoprazole DR 40 mg Tablet PO ×2 (05:11→15:19)
[2022-04-02 06:00] VITALS: BP 123/84; PULSE 94; RESP 16; TEMP 36.7; O2SAT 96
[2022-04-02] MEDS: metoprolol tartrate 25 mg Tablet PO (08:05)
[2022-04-02] MEDS: lisinopril 10 mg Tablet 30 MG PO (08:05)
[2022-04-02] MEDS: paliperidone ER 6 mg Tablet PO (08:05)
[2022-04-02] MEDS: lithium carbonate 300 mg Capsule PO ×2 (08:05→20:34)
[2022-04-02] MEDS: escitalopram 10 mg Tablet 20 MG PO (08:05)
[2022-04-02] MEDS: CLONazepam 0.5 mg Tablet PO ×2 (08:08→20:34)
--- NOTE | 2022-04-02 11:32 | W.PM.NPUPNS ---
Subjective NPU Subjective: Patient presents today reporting that she is feeling a little better. She denies that her stomach hurts but has reported stomach pain in the evening. She denies any intrusive thoughts or hallucination or any other concerns but says she does not feel great. Continue to discuss the plan to decrease her benzodiazepine and maintain the other medications and she understood and agree with that process. Medications: Medication Review Details: Mental Status Exam MSE Comments: This is an obese elderly white female looking older than her stated age with hospital scrubs on with limited grooming and eye contact. Has an almost malar rash on her face. No abnormal movements except for psychomotor retardation as she lies in bed. Cooperative with exam in no acute distress. Speech was decreased rate and volume. Mood described as he can feel good, affect subdued.? Thought process, somewhat organized. Thought content: patient denied suicidal or homicidal ideation, no delusions reported but issues with hyperreligious, paranoid delusions existed though she did not endorse any today. She denied auditory or visual hallucinations today. Attention and concentration were intact and memory appeared more reliable but none were formally tested. She is alert and oriented three times. Insight and judgment are limited. Impulse control is impaired. Vitals/I&O/Wt Last Vital Signs Temp 98.0 F 04/02/22 06:00 Pulse 94 04/02/22 06:00 Resp 16 04/02/22 06:00 BP 123/84 04/02/22 06:00 Pulse Ox 96 04/02/22 06:00 Weight last 48 hrs Weight 86.183 kg Weight 86.183 kg Data NPU : 03/26/22 18:40 03/26/22 18:40 A&P Assessment and plan (1) Homicidal ideation: Status: Acute (2) Schizoaffective disorder: Status: Acute (3) Dementia: Status: Acute (4) Delusion: Status: Acute Plan This is a 62-year-old female with schizophrenia and dementia known from previous hospitalizations who returns with thoughts of killing her which she feels comes from the devil Plan: 1.? Continue current medication.? We will add back Invega 6 mg and Invega Sustenna 156 mg on March 27, 2022.? Plan to increase monthly dose and then consider discontinuing oral again.? Klonopin 0.5 mg p.o. 3 times daily was dropped to 0.5 mg p.o. twice daily and 0.25 mg q. afternoon and a slow taper process that should go on after she is discharged. 2.? Continue every 15 minute checks for safety. 3.? Encourage individual, group and milieu therapies. 4.? We will recommend geriatric psychiatry follow-up if possible.? Patient continues to exhibit symptoms that would warrant geriatric follow-up and believe she would best be managed in a geriatric facility if she were to return. 5. Repeat labs and possibly order some inflammatory markers. Involuntary Hold Information 96 Hour Hold: 96 Hour Involuntary Admission: No Attestations NPU Medical Necessity Statement*: Inpatient hospitalization is medically necessary and the clinically appropriate intervention at this time.? We will initiate medications and make changes as indicated.? Likely length of stay 4-6 days Coding Level of Care Code Acute Cutting Machine Tender Helper for g Fwd Diagnoses Homicidal ideation R45.850 Schizoaffective disorder F25.9 Dementia F03.90 Delusion F22
[2022-04-02 14:00] VITALS: BP 118/76; PULSE 75; RESP 18; TEMP 36.4; O2SAT 96
[2022-04-02] MEDS: CLONazepam 0.5 mg Tablet 0.25 MG PO (15:19)
[2022-04-02] MEDS: hyDROXYzine 25 mg Capsule 50 MG PO (18:49)
--- NOTE | 2022-04-02 18:50 | PC.NURSE ---
pt requested something for anxiety .Vistaril 50 mg given as ordered.
[2022-04-02 20:20] VITALS: BP 114/76; PULSE 71; RESP 16; TEMP 36.7; O2SAT 94
[2022-04-02] MEDS: atorvastatin 40 mg Tablet 10 MG PO (20:34)
[2022-04-02 21:39] VITALS: BP 114/76; PULSE 71; RESP 16; TEMP 36.7; O2SAT 94
[2022-04-03 06:00] VITALS: BP 114/75; PULSE 77; RESP 16; TEMP 36.6; O2SAT 94
[2022-04-03] MEDS: sucralfate 1 gm Tablet PO ×3 (06:48→16:33)
[2022-04-03] MEDS: pantoprazole DR 40 mg Tablet PO ×2 (06:48→16:33)
[2022-04-03] MEDS: ondansetron 4 MG Tablet PO (08:36)
[2022-04-03] MEDS: lithium carbonate 300 mg Capsule PO ×2 (08:37→20:38)
[2022-04-03] MEDS: escitalopram 10 mg Tablet 20 MG PO (08:37)
[2022-04-03] MEDS: paliperidone ER 6 mg Tablet PO (08:37)
[2022-04-03] MEDS: CLONazepam 0.5 mg Tablet PO ×2 (08:37→20:38)
--- NOTE | 2022-04-03 08:56 | PC.NURSE ---
IN BED AROUSES TO VOICE. STATES, MY STOMACH HURTS, I THINK I'M DYING. WHEN ASKED WHY PT FEELS LIKE THAT PT STATED, I KEEP EATING BUT MY STOMACH STILL FEELS HUNGRY. ZOFRAN 4 MG GIVEN ORDERED. DENIES SI/HI AND AVH AT THIS TIME. DOES REPORT MILD NAUSEA AND STOMACH DISCOMFORT, RATING IT 3/10. BP 82/60 WITH HR 91 AND SPO2 97% ON RA. REPORTED TO DR. MARIN AND METOPROLOL AND LISINOPRIL HELD. NEW ORDERS RECEIVED FOR CBC, CMP, CRP ANDS ESR. ORDERS PLACED. INFORMED PT OF ALL NEW ORDERS AND EDUCATED ON HOLDING BP MEDS DUE TO LOW BP. REINFORCEMENT NEEDED WITH EDUCATION.
--- NOTE | 2022-04-03 10:33 | W.PM.NPUPNS ---
Subjective NPU Subjective: Therapy when he feels about the same. She was not complaining about abdominal pain but reporting some level of not feeling well. Still the rash on her face. She had labs drawn this morning. We discussed that there were no signs of any significant issues. We continue to discuss the fact that I would like to see her slowly off of the benzodiazepines to have a better sense of how she is doing. We also discussed the possible placement in a geriatric facility in hopes that she could continue convalescence there and their expertise might help her return to a higher sense of baseline. Mental Status Exam MSE Comments: This is an obese elderly white female looking older than her stated age with hospital scrubs on with limited grooming and eye contact.? Has an almost malar rash on her face.? No abnormal movements except for psychomotor retardation as she walks around with some mild ataxia Cooperative with exam in no acute distress. Speech was decreased rate and volume. Mood described as not that good, affect subdued.? Thought process, somewhat organized. Thought content: patient denied suicidal or homicidal ideation, no delusions reported but issues with hyperreligious, paranoid delusions existed though she did not endorse any today. She denied auditory or visual hallucinations today. Attention and concentration were intact and memory appeared more reliable but none were formally tested. She is alert and oriented three times. Insight and judgment are limited. Impulse control is impaired. Vitals/I&O/Wt Last Vital Signs Temp 97.9 F 04/03/22 06:00 Pulse 77 04/03/22 06:00 Resp 16 04/03/22 06:00 BP 114/75 04/03/22 06:00 Pulse Ox 94 04/03/22 06:00 Weight last 48 hrs Weight 86.183 kg Weight 86.183 kg Data NPU : 04/03/22 09:54 04/03/22 09:54 A&P Assessment and plan (1) Homicidal ideation: Status: Acute (2) Schizoaffective disorder: Status: Acute (3) Dementia: Status: Acute (4) Delusion: Status: Acute Plan This is a 62-year-old female with schizophrenia and dementia known from previous hospitalizations who returns with thoughts of killing her which she feels comes from the devil Plan: 1.? Continue current medication.? We will add back Invega 6 mg and Invega Sustenna 156 mg on March 27, 2022.? Plan to increase monthly dose and then consider discontinuing oral again.? Klonopin 0.5 mg p.o. 3 times daily was dropped to 0.5 mg p.o. twice daily and 0.25 mg q. afternoon and a slow taper process that should go on after she is discharged. May drop the afternoon dose altogether tomorrow. 2.? Continue every 15 minute checks for safety. 3.? Encourage individual, group and milieu therapies. 4.? We will recommend geriatric psychiatry follow-up if possible.? Patient continues to exhibit symptoms that would warrant geriatric follow-up and believe she would best be managed in a geriatric facility if she were to return. 5.? No concerns raised by laboratory findings. May consider medical consult. Involuntary Hold Information 96 Hour Hold: 96 Hour Involuntary Admission: No Attestations NPU Medical Necessity Statement*: Inpatient hospitalization is medically necessary and the clinically appropriate intervention at this time.? We will initiate medications and make changes as indicated.? Likely length of stay 4-6 days Coding Level of Care Code Acute High School Academic Coach for [facility] Fwd Diagnoses Homicidal ideation R45.850 Schizoaffective disorder F25.9 Dementia F03.90 Delusion F22
[2022-04-03 10:37] LABS: Hemoglobin 13.2 g/dL (11.5-15.3); Mean Corpuscular HGB Conc 32.2 g/dL (30.0-36.0); Mean Corpuscular Hemoglobin 29.1 pg (28.0-34.0); Mean Corpuscular Volume 90.3 fl (81-99); Mean Platelet Volume 10.8 fL (7.4-10.4); Platelet Count 236 10^3/cmm (130-400); Red Blood Count 4.54 10^6/uL (4.1-5.3); Red Cell Distribution Width 13.3 % (12.1-15.1); White Blood Count 8.1 10^3/uL (4.0-10.0)
[2022-04-03 10:49] LABS: Erythrocyte Sedimentation Rate 4 mm/hr (0-15)
[2022-04-03 10:56] LABS: Alanine Aminotransferase 21 U/L (0-33); Albumin Level 3.7 g/dL (3.5-5.2); Alkaline Phosphatase 80 IU/L (35-105); Anion Gap 11.6 (5-19); Aspartate Amino Transferase 15 U/L (0-32); Blood Urea Nitrogen 13 mg/dL (8-23); Carbon Dioxide 27 mmol/L (22-29); Chloride 104 mmol/L (98-107); Globulin 2.6 g/dL (1.3-4.6); Glomerular Filtration Rate 72.2 mL/min (90-130); Glucose 135 mg/dL (65-115); Osmolality Calculated 290 mOsm/kg (285-295); Potassium 3.6 mmol/L (3.5-5.1); Sodium 139 mmol/L (136-145); Total Bilirubin 0.3 mg/dL (0.15-1.2); Total Protein 6.3 g/dL (6.6-8.7)
[2022-04-03 11:15] LABS: Absolute Eosinophils 0.1 10^3/cmm (0.0-0.7); Absolute Neutrophil 5.2 10^3/cmm (1.4-6.5); Absolute Segmented Neutrophil 5.2 10/cmm (1.6-7.1); Eosinophils 2 %; Lymphocytes 30 %; Lymphocytes Absolute 2.4 10^3/cmm (1.2-3.4); Monocytes Absolute 0.3 10^3/cmm (0.1-0.6); Platelet Estimate Normal (Normal); Segmented Neutrophils 64 %; Total Cells Counted 100 (0-100)
[2022-04-03 14:00] VITALS: BP 83/54; PULSE 86; RESP 17; TEMP 36.7; O2SAT 92
[2022-04-03] MEDS: CLONazepam 0.5 mg Tablet 0.25 MG PO (14:21)
--- NOTE | 2022-04-03 14:57 | PC.NURSE ---
NEW ORDERS NEW ORDERS RECEIVED FROM DR. MARIN TO DISCONTINUE CLONAZAPAM 0.25 MG. CONTINUE AM AND PM SCHEDULED DOSES. PT. CONTINUES TO C/O ABDOMINAL PAIN. REPORTS BM YESTERDAY 04/02/22. BS HYPERACTIVE TIMES FOUR. ABDOMEN LARGE/SOFT AND NON TENDER. DR. MARIN TO CONSULT FOR HOSPITALIST.
--- NOTE | 2022-04-03 15:36 | PC.NURSE ---
BP AT 1400 WAS 83/60. EDUCATED PT TO DRINK WATER AND WALK AROUND. BP TAKEN AT 1530 AND BP WAS 111/77 WITH A HR OF 103 AND SPO2 96% ON RA. CONTINUES TO CRY INTERMITTENTLY AND STATES I'M DYING, I KNOW I'M DYING. MY STOMACH HURTS. HOSPITALIST WAS CONSULTED AWAITING ARRIVAL TO UNIT TO SEE PT. PT CURRENTLY ON PHONE SPEAKING TO . FLAT AFFECT IS NOTED.
--- NOTE | 2022-04-03 15:56 | CTR_ITS ---
PROCEDURE INFORMATION: Exam: CT Abdomen And Pelvis With Contrast Exam date and time: 04/03/2022 11:09 PM Age: 62 years old Clinical indication: Other: Does not feel full when eating; Prior surgery; Surgery date: 6+ months; Surgery type: Appy/angelique/ hyst; Patient HX: PT states she has no pain right now but does not feel full when she eats; Additional info: Abdominal pain TECHNIQUE: Imaging protocol: Computed tomography of the abdomen and pelvis with contrast. Radiation optimization: All CT scans at this facility use at least one of these dose optimization techniques: automated exposure control; mA and/or kV adjustment per patient size (includes targeted exams where dose is matched to clinical indication); or iterative reconstruction. Contrast material: OMNI 300; Contrast volume: 90 ml; Contrast route: INTRAVENOUS (IV); COMPARISON: CT abdomen pelvis w con* [id number] 10/20/2021 5:57 PM RADIATION DOSE METRICS: Total DLP (mGy-cm): 1731.02 FINDINGS: Pleural spaces: Mild bilateral pleural fluid collections. Diaphragm: Stable moderate intrathoracic hiatal hernia. Liver: Normal. No mass. Gallbladder and bile ducts: Stable cholecystectomy. Pancreas: Normal. No ductal dilation. Spleen: Stable one or more accessory splenules. Adrenal glands: Normal. No mass. Kidneys and ureters: Normal. No hydronephrosis. Stomach and bowel: Unremarkable. No obstruction. No mucosal thickening. Appendix: No evidence of appendicitis. Intraperitoneal space: Unremarkable. No free air. No significant fluid collection. Vasculature: Calcification of the abdominal aorta and/or iliac arteries consistent with atherosclerotic vessel disease. One or more calcified pelvic phleboliths. One or more calcified pelvic phleboliths. Lymph nodes: Unremarkable. No enlarged lymph nodes. Urinary bladder: Unremarkable as visualized. Reproductive: Stable hysterectomy. Bones/joints: Mild dextroscoliosis. Soft tissues: Unremarkable. Other findings: Stable metallic postoperative changes over the thoracolumbar spine with metallic artifact. CT/CT abdomen pelvis w con* [id number] IMPRESSION: 1. Mild bilateral pleural fluid collections. 2. Stable moderate intrathoracic hiatal hernia. 3. Stable cholecystectomy.
[2022-04-03] MEDS: midodrine 5 mg TABLET 10 MG PO (16:33)
--- NOTE | 2022-04-03 16:58 | PM.CONSULT ---
Providers/Reason For Consult Consulting Physician/Specialty*: Internal medicine Reason for Consult*: Abdominal pain, low blood pressures Requesting Physician: Dr. Chan Attending Physician: Adam Chan MD Primary Care Provider: Talat Ayala History of Present Illness History of Present Illness Jenniffer Hollingsworth is a 62 year old female with past medical history of hypertension, hypothyroidism, schizoaffective disorder who has been admitted to Neuropsych Unit since 03/27. Medicine was consulted as patient has been complaining of abdominal pain and she was found to have low blood pressures. On examination patient is walking to the nursing unit taking her medications without any unsteadiness or dizziness. On sitting down patient states she does not have any abdominal pain but does not feel full when she eats. Denies any nausea, vomiting, headache. States last bowel movement was a day ago. Denies of having any chest pain, dizziness, and being unsteady on her feet. Review of Systems General: Reports: 10 or more systems reviewed and unremarkable except in HPI and below Const: Denies: fever(s), chills, body aches, change in appetite, change in weight, malaise, night sweats, diaphoresis, change in sleep pattern, daytime sleepiness or snoring Eyes: Denies: change in vision, blurry vision, photophobia, eye discomfort or eye discharge ENMT: Denies: throat pain, enlarged tonsils, hoarseness, mouth pain, oral sores, dry mouth, tinnitus, nasal congestion or post nasal drip Card: Denies: chest pain, palpitations, irregular heart rhythm, edema, swelling of feet/ankles, lightheadedness, syncope, pre-syncope, dyspnea on exertion, orthopnea, leg pain with exertion or acrocyanosis Resp: Denies: dyspnea, productive cough, non-productive cough, wheezing, stridor, pain on inspiration, change in phlegm color, hemoptysis or chest congestion GI: Denies: abdominal pain, nausea, vomiting, hematemesis, coffee ground emesis, dysphagia, heartburn, diarrhea, constipation, bloating, GI cramping, change in bowel habits, pain on defecation, hematochezia or melena : Denies: flank pain, dysuria, urinary frequency, urinary urgency, urinary hesitancy, nocturia or hematuria Musc: Denies: neck pain, back pain, extremity pain, joint pain, joint swelling, joint redness, joint stiffness or limited range of motion Neuro: Denies: headache(s), numbness in extremities, weakness in extremities, sensory changes, lack of coordination, difficulty walking, frequent falls, dizziness, vertigo, confusion, Slurred speech present, difficulty communicating thoughts or seizure-like activity Psych: Denies: anxiety, depression, mood swings, panic attacks, hopelessness or irritability Endo: Denies: polyuria, polydipsia, tired all the time, cold intolerance, excessive sweating, flushing or heat intolerance Chris/Lymph: Denies: easy bruising or easy bleeding All/Imm: Denies: tongue swelling, facial swelling or acute wheezing Medications/Allergies Home Medications Medication Instructions Recorded Confirmed Last Taken Type sucralfate 1 gram tablet 1 g PO ,,09/08/20 03/27/22 03/26/22 History atorvastatin 10 mg tablet 10 mg PO BEDTIME 02/04/22 03/27/22 03/26/22 History escitalopram oxalate 10 mg tablet 20 mg PO DAILY 02/04/22 03/27/22 03/26/22 History lithium carbonate 300 mg capsule 300 mg PO ,02/04/22 03/27/22 03/26/22 History metoprolol tartrate 25 mg tablet 25 mg PO ,02/04/22 03/27/22 03/26/22 History pantoprazole 40 mg tablet,delayed 40 mg PO ,02/04/22 03/27/22 03/26/22 History release paliperidone 6 mg tablet,extended 6 mg PO DAILY 30 Days #30 tab 02/14/22 03/27/22 03/26/22 Rx release 24 hr lisinopril 10 mg tablet 30 mg PO DAILY 03/02/22 03/27/22 03/26/22 History paliperidone palmitate 156 mg/mL 156 mg IM Q30D 03/02/22 03/27/22 02/21/22 History intramuscular syringe (Invega Sustenna) clonazepam 0.5 mg tablet 0.5 mg PO TID@,,03/26/22 03/26/22 03/26/22 History Allergies Allergy/AdvReac Type Severity Reaction Status Date / Time No Known Allergies Allergy Verified 10/20/21 15:42 Current Medications Generic Name Dose Route Start Last Admin Trade Name Priscila PRN Reason Stop Dose Admin Acetaminophen 650 mg 03/26/22 22:56 03/29/22 08:33 Acetaminophen 325 Mg Tablet PO 650 mg Q4H PRN Administration MILD PAIN Atorvastatin Calcium 10 mg 03/27/22 00:16 04/02/22 20:34 Atorvastatin 40 Mg Tablet PO 10 mg BEDTIME FEI Administration Clonazepam 0.5 mg 03/31/22 21:00 04/03/22 08:37 Clonazepam 0.5 Mg Tablet PO 0.5 mg BID@ FEI Administration Escitalopram Oxalate 20 mg 03/27/22 09:00 04/03/22 08:37 Escitalopram 10 Mg Tablet PO 20 mg DAILY FEI Administration Hydroxyzine Pamoate 50 mg 03/26/22 22:56 04/02/22 18:49 Hydroxyzine 25 Mg Capsule PO 50 mg Q6H PRN Administration ANXIETY [place] Carbonate 300 mg 03/27/22 00:16 04/03/22 08:37 [place] Carbonate 300 Mg Capsule PO 300 mg FEI Administration Metoprolol Tartrate 25 mg 03/27/22 00:16 04/03/22 08:39 Metoprolol Tartrate 25 Mg Tablet PO Not Given FEI Midodrine 10 mg 04/03/22 16:00 04/03/22 16:33 Midodrine 5 Mg Tablet PO 10 mg TID FEI Administration Olanzapine 5 mg 03/26/22 22:56 03/31/22 16:29 Olanzapine 5 Mg Odt PO 5 mg Q4H PRN Administration Agitation/Psychosis Ondansetron HCl 4 mg 03/26/22 22:56 04/03/22 08:36 Ondansetron 4 Mg Tablet PO 4 mg Q6H PRN Administration NAUSEA AND VOMITING Paliperidone 6 mg 03/27/22 09:00 04/03/22 08:37 Paliperidone Er 6 Mg Tablet PO 6 mg DAILY FEI Administration Paliperidone Palmitate 156 mg 03/27/22 10:00 03/27/22 08:56 Paliperidone Palmitate 156 Mg Syringe IM 156 mg Q30D FEI Administration Pantoprazole Sodium 40 mg 03/27/22 07:00 04/03/22 16:[address] 40 Mg Tablet PO 40 mg FEI Administration Sucralfate 1 gm 03/27/22 07:00 04/03/22 16:33 Sucralfate 1 Gm Tablet PO 1 gm 07,11,16 FEI Administration PFSH Acute PFSH: Medical History (Updated 04/03/22 @ 17:03 by Medardo Vu MD) Delirium Delusion Hypertension Hypothyroidism Pneumonia due to 2019 novel coronavirus Schizophrenia Surgical History (Updated 04/03/22 @ 17:01 by Medardo Vu MD) H/O: hysterectomy History of tonsillectomy Hx of appendectomy Hx of cholecystectomy Family History (Updated 04/03/22 @ 17:01 by Medardo Vu MD) Denies family history of CAD (coronary artery disease) Hyperlipidemia Hypertension Social History (Updated 03/26/22 @ 19:34 by Bisi Styles MD) Smoking and tobacco status: never smoked Alcohol intake: never Substance/Drug Use: never Vitals/I&O/Wt Last Vital Signs Temp 98.0 F 04/03/22 14:00 Pulse 86 04/03/22 14:00 Resp 17 04/03/22 14:00 BP 83/54 04/03/22 14:00 Pulse Ox 92 04/03/22 14:00 Weight last 48 hrs Weight 86.183 kg Weight 86.183 kg Physical Exam Narrative: General: No acute distress, AO x3, flat affect, minimal arthritis present on the face involving nasal area HEENT: PERRLA, pupils bilaterally equal and reactive Chest: Normal vesicular breath sounds, no added sounds, equal good air entry bilaterally CVS: S1-S2 regular, no murmurs, no tachycardia, no gallops, no rubs Abdomen: Soft, nontender, no organomegaly, bowel sounds present Neuro: No focal deficits, no facial deformity, AO x3, power 5/5 in all limbs Data : 04/03/22 09:54 04/03/22 09:54 A&P Assessment and plan (1) Abdominal pain: Status: Acute (2) Low blood pressure: Status: Acute (3) Hypertension: Status: Acute (4) Hypothyroidism: Status: Acute (5) Homicidal ideation: Status: Acute (6) Schizoaffective disorder: Status: Acute Plan Abdominal pain: Patient denied of having any symptoms on examination. States the concern she has is excessive hunger. Does have a history of GERD in the past. Continue with Protonix twice daily, Carafate. Blood work shows normal liver functions. Check CT abdomen pelvis. Low blood pressure: Patient is asymptomatic. On review of chart patient does have history of low blood pressures in high 80s in the past as well. Can be secondary to multiple benzodiazepines/SSRIs. Stop lisinopril. Check cortisol, TSH levels. Check lithium levels. Start on midodrine 5 mg 3 times daily. Once the blood pressures are more stable can switch over to as needed dosage. Continue with low-dose of metoprolol 25 mg twice daily to avoid reflex tachycardia. Thank you for involving us in the care of Ms. Hollingsworth. Please call back with any questions. Will change treatment as per clinical picture and results. Full code. Regular diet. Protonix for PUD prophylaxis. Consult Attestations Medical Necessity Statement: As per primary team for homicidal/suicidal ideation in patient with schizoaffective disorder Time Spent in Patient Care: Greater than 35 minutes Coding Level of Care Code Acute Window Unit Air Conditioning Mechanic for Chg Fwd Diagnoses Abdominal pain R10.9 Low blood pressure I95.9 Hypertension I10 Hypothyroidism E03.9 Homicidal ideation R45.850 Schizoaffective disorder F25.9
[2022-04-03 18:29] LABS: Estmated Average Glucose 114; Hemoglobin A1C 5.6 % (4.0-6.0)
[2022-04-03 18:34] LABS: Chol HDL Ratio 2.35 mg/dL (0.0-4.40); Cholesterol 87 mg/dL (0-200); HDL Cholesterol 37 mg/dL (60-100); LDL Cholesterol Calculated 33 mg/dL (50-129); Triglycerides 83 mg/dL (0-150); VLDL Cholestrol Calculation 17 mg/dL (0-30)
[2022-04-03 18:44] LABS: Thyroid Stimulating Hormone 2.28 uIU/mL (0.27-4.20)
[2022-04-03 18:47] LABS: Cortisol Random 9.75 ug/dL (2.47-19.5)
[2022-04-03] MEDS: midodrine 5 mg TABLET PO (20:38)
[2022-04-03] MEDS: atorvastatin 40 mg Tablet 10 MG PO (20:38)
[2022-04-03 21:23] VITALS: BP 94/55; PULSE 66; RESP 17; TEMP 36.7; O2SAT 95
[2022-04-03 21:29] LABS: Lithium 0.4 mmol/L (0.6-1.2)
--- NOTE | 2022-04-03 21:51 | PC.NURSE ---
PT'S SCHEDULED DOSE OF LOPRESSOR HELD THIS NIGHT PER RN KK, DUE TO LOW BP OF 94/55.
[2022-04-03] MEDS: iohexol 300 mg/mL 100 mL Btl IV (23:15)
[2022-04-04 06:00] VITALS: BP 103/69; PULSE 72; RESP 20; TEMP 36.6; O2SAT 95
[2022-04-04] MEDS: sucralfate 1 gm Tablet PO ×3 (06:16→15:44)
[2022-04-04] MEDS: pantoprazole DR 40 mg Tablet PO ×2 (06:16→15:44)
[2022-04-04] MEDS: midodrine 5 mg TABLET PO ×3 (08:12→20:39)
[2022-04-04] MEDS: CLONazepam 0.5 mg Tablet PO ×2 (08:12→20:39)
[2022-04-04] MEDS: lithium carbonate 300 mg Capsule PO ×2 (08:12→20:39)
[2022-04-04] MEDS: metoprolol tartrate 25 mg Tablet PO ×2 (08:12→20:39)
[2022-04-04] MEDS: paliperidone ER 6 mg Tablet PO (08:12)
[2022-04-04] MEDS: escitalopram 10 mg Tablet 20 MG PO (08:13)
[2022-04-04 08:30] VITALS: BP 100/80
--- NOTE | 2022-04-04 11:42 | P.PN_ITS ---
Subjective Subjective: No acute vents overnight. Blood pressure is better. Patient asymptomatic. Continue on oral midodrine as scheduled for now and will switch to as-needed basis once systolic blood pressures are more than 160. Can be discharged off lisinopril and on midodrine. Vitals/I&O/Wt Last Vital Signs Temp 97.8 F 04/04/22 06:00 Pulse 72 04/04/22 06:00 Resp 20 H 04/04/22 06:00 BP 100/80 04/04/22 08:30 Pulse Ox 95 04/04/22 06:00 Physical Exam Narrative: General: No acute distress, AO x3, flat affect, minimal arthritis p resent on the face involving nasal area HEENT: PERRLA, pupils bilaterally equal and reactive Chest: Normal vesicular breath sounds, no added sounds, equal good air entry bilaterally CVS: S1-S2 regular, no murmurs, no tachycardia, no gallops, no rubs Abdomen: Soft, nontender, no organomegaly, bowel sounds present Neuro: No focal deficits, no facial deformity, AO x3, power 5/5 in all limbs Data : 04/03/22 09:54 04/03/22 09:54 A&P Assessment and plan (1) Abdominal pain: Status: Acute (2) Low blood pressure: Status: Acute (3) Hypertension: Status: Acute (4) Hypothyroidism: Status: Acute (5) Homicidal ideation: Status: Acute (6) Schizoaffective disorder: Status: Acute Plan Abdominal pain: Patient denied of having any symptoms on examination. States the concern she has is excessive hunger. Cannot rule out psychosomatic behavior versus from GERD in view of hiatal hernia CT abdomen pelvis results appreciated. Continue with Protonix twice daily, Carafate. Blood work shows normal liver functions. We will consult patient for multiple small meals. Low blood pressure: Patient is asymptomatic. On review of chart patient does have history of low blood pressures in high 80s in the past as well. Can be secondary to multiple benzodiazepines/SSRIs. Stop lisinopril. Cortisol and TSH levels appreciated. Continue with midodrine 5 mg 3 times daily. Once the blood pressures over 160 systolic can switch to on as-needed basis 3 times daily. Continue with low-dose of metoprolol 25 mg twice daily to avoid reflex tachycardia. Thank you for involving us in the care of Ms. Losh. Please call back with any questions. For now we will sign off please call us back with any questions. Full code. Regular diet. Protonix for PUD prophylaxis. Attestations Medical Necessity Statement*: As per primary team. Time Spent in Patient Care: Greater than 35 minutes Coding Level of Care Code Acute Master Black Belt for Chg Fwd Diagnoses Abdominal pain R10.9 Low blood pressure I95.9 Hypertension I10 Hypothyroidism E03.9 Homicidal ideation R45.850 Schizoaffective disorder F25.9
--- NOTE | 2022-04-04 13:09 | W.PM.NPUPNS ---
Subjective NPU Subjective: Patient presents today reporting that she is doing okay. She denied any abdominal pain and reports that she is feeling okay overall. She denies any negative or problematic thoughts about her . Denied any thoughts or conversations with the devil. She denied any aggressive thoughts or feelings towards anyone. Mental Status Exam MSE Comments: This is an obese elderly white female looking older than her stated age with hospital scrubs on with limited grooming and eye contact.? Has a worsening malar rash on her face.? No abnormal movements except for psychomotor retardation as she lies in bed. Cooperative with exam in no acute distress. Speech was more normal rate and volume. Mood described as better, affect less subdued.? Thought process, somewhat organized. Thought content: patient denied suicidal or homicidal ideation, no delusions reported and no signs of hyperreligious or paranoid delusions. She denied auditory or visual hallucinations today. Attention and concentration were intact and memory appeared more reliable but none were formally tested. She is alert and oriented three times. Insight and judgment are limited. Impulse control is impaired. Vitals/I&O/Wt Last Vital Signs Temp 97.8 F 04/04/22 06:00 Pulse 72 04/04/22 06:00 Resp 20 H 04/04/22 06:00 BP 100/80 04/04/22 08:30 Pulse Ox 95 04/04/22 06:00 Data NPU : 04/03/22 09:54 04/03/22 09:54 A&P Assessment and plan (1) Delusion: Status: Acute (2) Low blood pressure: Status: Acute (3) Abdominal pain: Status: Acute (4) Hypothyroidism: Status: Acute (5) Homicidal ideation: Status: Acute (6) Schizoaffective disorder: Status: Acute (7) Dementia: Status: Acute Plan This is a 62-year-old female with schizophrenia and dementia known from previous hospitalizations who returns with thoughts of killing her which she feels comes from the devi Plan: 1.? Continue current medication.? We will add back Invega 6 mg and Invega Sustenna 156 mg on March 27, 2022.? Plan to increase monthly dose and then consider discontinuing oral again.? Klonopin 0.5 mg p.o. 3 times daily was dropped to 0.5 mg p.o. twice daily and 0.25 mg q. afternoon dose discontinued.? We will decrease the morning dose in the next day or so. 2.? Continue every 15 minute checks for safety. 3.? Encourage individual, group and milieu therapies. 4.? We will recommend geriatric psychiatry follow-up if possible.? Patient continues to exhibit symptoms that would warrant geriatric follow-up and believe she would best be managed in a geriatric facility if she were to return. Working with social work team to determine the viability of this option. 5.? Appreciate the medical consult and will continue to make sure there is no comorbid medical condition pointing her psychiatric presentation. Involuntary Hold Information 96 Hour Hold: 96 Hour Involuntary Admission: No Attestations NPU Medical Necessity Statement*: Inpatient hospitalization is medically necessary and the clinically appropriate intervention at this time.? We will initiate medications and make changes as indicated.? Likely length of stay 4-6 days Coding Level of Care Code Acute Nipple Machine Operator for Chg Fwd Diagnoses Delusion F22 Low blood pressure I95.9 Abdominal pain R10.9 Hypothyroidism E03.9 Homicidal ideation R45.850 Schizoaffective disorder F25.9 Dementia F03.90
[2022-04-04] MEDS: hyDROXYzine 25 mg Capsule 50 MG PO (13:36)
[2022-04-04 14:00] VITALS: BP 135/74; PULSE 68; RESP 17; TEMP 36.9; O2SAT 98
[2022-04-04] MEDS: atorvastatin 40 mg Tablet 10 MG PO (20:39)
[2022-04-04 20:51] VITALS: BP 116/77; PULSE 77; RESP 17; TEMP 36.9; O2SAT 94
[2022-04-05 06:00] VITALS: BP 106/73; PULSE 75; RESP 16; TEMP 36.6; O2SAT 93
[2022-04-05] MEDS: pantoprazole DR 40 mg Tablet PO ×2 (06:00→15:23)
[2022-04-05] MEDS: sucralfate 1 gm Tablet PO ×3 (06:00→15:23)
[2022-04-05] MEDS: escitalopram 10 mg Tablet 20 MG PO (08:58)
[2022-04-05] MEDS: metoprolol tartrate 25 mg Tablet PO ×2 (08:58→20:09)
[2022-04-05] MEDS: lithium carbonate 300 mg Capsule PO ×2 (08:58→20:09)
[2022-04-05] MEDS: CLONazepam 0.5 mg Tablet PO ×2 (08:58→20:09)
[2022-04-05] MEDS: paliperidone ER 6 mg Tablet PO (08:58)
[2022-04-05] MEDS: midodrine 5 mg TABLET PO ×3 (08:58→20:09)
[2022-04-05] MEDS: hyDROXYzine 25 mg Capsule 50 MG PO ×2 (13:16→21:02)
[2022-04-05 14:00] VITALS: BP 105/77; PULSE 64; RESP 18; TEMP 36.7; O2SAT 97
--- NOTE | 2022-04-05 18:30 | W.PM.NPUPNS ---
Subjective NPU Subjective: Patient presents today doing what seems to be better source mild to the first time and waved at this contract technical writer spontaneously. But later in the day she fell into that more odd internalized sad behavior maybe reflective of ing. We discussed continuing to slowly decrease her Klonopin we will now be at 0.25 mg morning and 0.5 mg at night. Otherwise not having times where she vocalizes any ill feelings towards her and now usually not having any reported thoughts of voices or Satan. Medications: Medication Review Details: This is an obese elderly white female looking older than her stated age with hospital scrubs on with limited grooming and eye contact.? Has a worsening malar rash on her face.? No abnormal movements except for psychomotor retardation as she lies in bed.? Cooperative with exam in no acute distress. Speech was more normal rate and volume. Mood described as okay, affect less subdued.? Thought process, mostly organized. Thought content: patient denied suicidal or homicidal ideation, no delusions reported and no signs of hyperreligious or paranoid delusions. She denied auditory or visual hallucinations today. Attention and concentration were intact and memory appeared more reliable but none were formally tested. She is alert and oriented three times. Insight and judgment are limited. Impulse control is impaired. Vitals/I&O/Wt Last Vital Signs Temp 98.0 F 04/05/22 14:00 Pulse 64 04/05/22 14:00 Resp 18 04/05/22 14:00 BP 105/77 04/05/22 14:00 Pulse Ox 97 04/05/22 14:00 Data NPU : 04/03/22 09:54 04/03/22 09:54 A&P Assessment and plan (1) Delirium: Status: Acute (2) Delusion: Status: Acute (3) Low blood pressure: Status: Acute (4) Abdominal pain: Status: Acute (5) Hypothyroidism: Status: Acute (6) Hypertension: Status: Acute (7) Homicidal ideation: Status: Acute (8) Schizoaffective disorder: Status: Acute (9) Dementia: Status: Acute Plan This is a 62-year-old female with schizophrenia and dementia known from previous hospitalizations who returns with thoughts of killing her which she feels comes from the devil Plan: 1.? Continue current medication.? We will add back Invega 6 mg and Invega Sustenna 156 mg on March 27, 2022.? Plan to increase monthly dose and then consider discontinuing oral again.? Klonopin 0.5 mg p.o. 3 times daily was dropped to 0.5 mg p.o. twice daily and 0.25 mg q. afternoon dose discontinued. Decreased dose to 0.25 mg the morning and 0.5 mg at night. 2.? Continue every 15 minute checks for safety. 3.? Encourage individual, group and milieu therapies. 4.? We will recommend geriatric psychiatry follow-up if possible.? Patient continues to exhibit symptoms that would warrant geriatric follow-up and believe she would best be managed in a geriatric facility if she were to return.? Working with social work team to determine the viability of this option. We will complete paperwork allowing her to possibly be transferred to geriatric facility. 5.? Appreciate the medical consult and will continue to make sure there is no comorbid medical condition pointing her psychiatric presentation. Involuntary Hold Information 96 Hour Hold: 96 Hour Involuntary Admission: No Attestations NPU Medical Necessity Statement*: Inpatient hospitalization is medically necessary and the clinically appropriate intervention at this time.? We will initiate medications and make changes as indicated.? Likely length of stay 3-5 days Coding Level of Care Code Acute Sandblasting Supervisor for g Fwd Diagnoses Delirium R41.0 Delusion F22 Low blood pressure I95.9 Abdominal pain R10.9 Hypothyroidism E03.9 Hypertension I10 Homicidal ideation R45.850 Schizoaffective disorder F25.9 Dementia F03.90
[2022-04-05] MEDS: atorvastatin 40 mg Tablet 10 MG PO (20:09)
[2022-04-05 20:34] VITALS: BP 89/56; PULSE 60; RESP 19; TEMP 36.6; O2SAT 96
[2022-04-06 06:00] VITALS: BP 114/69; PULSE 68; RESP 16; TEMP 36.7; O2SAT 93
[2022-04-06] MEDS: sucralfate 1 gm Tablet PO ×3 (06:09→15:18)
[2022-04-06] MEDS: pantoprazole DR 40 mg Tablet PO ×2 (06:09→15:18)
[2022-04-06] MEDS: midodrine 5 mg TABLET PO ×3 (08:49→20:44)
[2022-04-06] MEDS: lithium carbonate 300 mg Capsule PO ×2 (08:49→20:44)
[2022-04-06] MEDS: CLONazepam 0.5 mg Tablet 0.25 MG PO (08:49)
[2022-04-06] MEDS: paliperidone ER 6 mg Tablet PO (08:50)
[2022-04-06] MEDS: escitalopram 10 mg Tablet 20 MG PO (08:50)
[2022-04-06] MEDS: metoprolol tartrate 25 mg Tablet PO ×2 (08:50→20:44)
[2022-04-06] MEDS: OLANZapine 5 mg ODT PO (10:00)
[2022-04-06] MEDS: ondansetron 4 MG Tablet PO (10:00)
--- NOTE | 2022-04-06 10:09 | P.NPUPN_ITS ---
Subjective NPU Subjective: Patient presents today reporting that she?s doing OK. This was the second day in a row that she made eye contact and smiled earlier in the day versus seeming more zombie like without noting what?s going on around her. She did ask about if we had stronger anxiety medication which raises the question if she was having withdrawal symptoms possibly from the discontinuation of the Klonopin at this pace. We discussed the possibility of adding other anxiety agents that would not be habit forming or problematic at her age. We continue to discuss the possibility of her going to [place] to continue her convalescence as the last time she was discharged she went through another inpatient setting and secondary to the speed it was changes were made she ended up right back here on the exact same medication as the first time we saw one another. Mental Status Exam MSE Comments: This is an obese elderly white female looking older than her stated age with hospital scrubs on with limited grooming and eye contact.? Has a worsening malar rash on her face.? No abnormal movements except for lessening ps ychomotor retardation walking with fairly stable gait.? Cooperative with exam in no acute distress. Speech was more normal rate and volume. Mood described as better, affect less subdued.? Thought process, somewhat organized. Thought content: patient denied suicidal or homicidal ideation, no delusions reported and no signs of hyperreligious or paranoid delusions. She denied auditory or visual hallucinations today. Attention and concentration were intact and memory appeared more reliable but none were formally tested. She is alert and oriented three times. Insight and judgment are limited. Impulse control is impaired. Vitals/I&O/Wt Last Vital Signs Temp 98.0 F 04/06/22 06:00 Pulse 68 04/06/22 06:00 Resp 16 04/06/22 06:00 BP 114/69 04/06/22 06:00 Pulse Ox 93 04/06/22 06:00 04/05/22 04/06/22 04/06/22 22:59 06:59 14:59 Intake Total 240 / 240 Balance 240 / 240 Data NPU : 04/03/22 09:54 04/03/22 09:54 A&P Assessment and plan (1) Delirium: Status: Acute (2) Delusion: Status: Acute (3) Low blood pressure: Status: Acute (4) Abdominal pain: Status: Acute (5) Hypothyroidism: Status: Acute (6) Hypertension: Status: Acute (7) Homicidal ideation: Status: Acute (8) Schizoaffective disorder: Status: Acute (9) Dementia: Status: Acute Plan This is a 62-year-old female with schizophrenia and dementia known from previous hospitalizations who returns with thoughts of killing her which she feels comes from the devil Plan: 1.? Continue current medication.? We will add back Invega 6 mg and Invega Sustenna 156 mg on March 27, 2022.? Plan to increase monthly dose and then consider discontinuing oral again.? Klonopin 0.5 mg p.o. 3 times daily was dropped to 0.5 mg p.o. twice daily and 0.25 mg q. afternoon dose discontinued.? Decreased dose to 0.25 mg the morning and 0.5 mg at night.? 2.? Continue every 15 minute checks for safety. 3.? Encourage individual, group and milieu therapies. 4.? We will recommend geriatric psychiatry care and follow-up if possible.? Patient continues to exhibit symptoms that would warrant geriatric follow-up and believe she would best be managed in a geriatric facility if she were to return.? Working with social work team to determine the viability of this option.? 124 AB completed and hope is that approval and acceptance by next sunday. 5.? Appreciate the medical consult and will continue to make sure there is no comorbid medical condition pointing her psychiatric presentation. 6. The greatest concern at this point is that the discontinuation of the Klonopin should be something that could be managed in another (maybe lesser acute) setting but she?s been discharged and readmitted at a geriatric facility that took the Klonopin away immediately causing her great distress and leading to outpatient doctor resuming the Klonopin at full strength resuming her previous medication that was an effective in controlling her psychosis and ended up with her returning right back here to the hospital in a similar or worse condition than her last visit.. Involuntary Hold Information 96 Hour Hold: 96 Hour Involuntary Admission: No Attestations NPU Medical Necessity Statement*: Inpatient hospitalization is medically necessary and the clinically appropriate intervention at this time.? We will initiate medications and make changes as indicated.? Likely length of stay 5-7 days. Hope is for stability to allow discharge to home if the taper continues to go well or transfer to [facility] next week for continued slow convalescence. Coding Level of Care Code Acute Global Climate Change Researcher for g Fwd Diagnoses Delirium R41.0 Delusion F22 Low blood pressure I95.9 Abdominal pain R10.9 Hypothyroidism E03.9 Hypertension I10 Homicidal ideation R45.850 Schizoaffective disorder F25.9 Dementia F03.90
[2022-04-06] MEDS: BuSPIRONE 10 mg Tablet 5 MG PO ×3 (13:45→20:45)
[2022-04-06 14:00] VITALS: BP 110/78; PULSE 80; RESP 17; TEMP 36.6; O2SAT 93
[2022-04-06 20:22] VITALS: BP 91/60; PULSE 68; RESP 19; TEMP 36.2; O2SAT 95
[2022-04-06 20:43] VITALS: BP 130/88
[2022-04-06] MEDS: CLONazepam 0.5 mg Tablet PO (20:44)
[2022-04-06] MEDS: atorvastatin 40 mg Tablet 10 MG PO (20:44)
[2022-04-07 06:00] VITALS: BP 107/71; PULSE 63; RESP 16; TEMP 36.4; O2SAT 94
[2022-04-07] MEDS: sucralfate 1 gm Tablet PO ×3 (06:23→15:19)
[2022-04-07] MEDS: pantoprazole DR 40 mg Tablet PO ×2 (06:23→15:19)
[2022-04-07] MEDS: CLONazepam 0.5 mg Tablet 0.25 MG PO (06:23)
[2022-04-07] MEDS: lithium carbonate 300 mg Capsule PO ×2 (09:07→20:40)
[2022-04-07] MEDS: metoprolol tartrate 25 mg Tablet PO ×2 (09:08→20:40)
[2022-04-07] MEDS: paliperidone ER 6 mg Tablet PO (09:08)
[2022-04-07] MEDS: escitalopram 10 mg Tablet 20 MG PO (09:08)
[2022-04-07] MEDS: BuSPIRONE 10 mg Tablet 5 MG PO ×3 (09:08→20:39)
[2022-04-07] MEDS: midodrine 5 mg TABLET PO ×3 (09:08→20:40)
[2022-04-07] MEDS: hyDROXYzine 25 mg Capsule 50 MG PO (12:07)
--- NOTE | 2022-04-07 13:44 | PC.NURSE ---
PT COMPLAINS OF NOT FEELING WELL. PT STATES HER ABDOMEN HURTS AND SHE FEELS LIKE SHE IS NOT GETTING FULL WHEN SHE EATS. PT HAS BEEN ANXIOUS TODAY, VISTERIL ALREADY GIVEN. VITALS WERE BP 142/90 PULSE 69 O2 95 AND TEMP 97.8. RN NOTIFIED. PT GIVEN ZYDIS.
[2022-04-07] MEDS: OLANZapine 5 mg ODT PO (13:48)
[2022-04-07 14:00] VITALS: BP 116/67; PULSE 64; RESP 20; TEMP 36.4; O2SAT 95
--- NOTE | 2022-04-07 18:39 | P.NPUPN_ITS ---
Subjective NPU Subjective: Patient presents today continuing to have a better presentation in the day than at nighttime. She is continuing to allude to being anxious. She does not report being anxious straightforward she only inquires if there are any really strong anxiety medications. We discussed the fact that we are taking her Klonopin away and what we believed to be responsible way trying to not replicate what happened when she went to [place]. With it being removed more quickly that she was obviously able to manage. She denied any problems with the BuSpar that was started but clearly it is not helping her as much as she would like. Mental Status Exam MSE Comments: his is an obese elderly white female looking older than her stated age with hospital scrubs on with limited grooming and eye contact.? Has a worsening malar rash on her face.? No abnormal movements except for lessening psychomotor retardation walking with fairly stable gait.? Cooperative with exam in no acute distress. Speech was more normal rate and volume, but still slowed. Mood described as okay, do have any strong anxiety medications, affect less subdued, but does not appear anxious. Thought process, somewhat organized. Thought content: patient denied suicidal or homicidal ideation, no delusions reported and no signs of hyperreligious or paranoid delusions. She denied auditory or visual hallucinations today. Attention and concentration were intact and memory appeared more reliable but none were formally tested. She is alert and oriented three times. Insight and judgment are limited. Impulse control is impaired. Vitals/I&O/Wt Last Vital Signs Temp 98.2 F 04/07/22 19:34 Pulse 66 04/07/22 19:34 Resp 16 04/07/22 19:34 BP 107/72 04/07/22 19:34 Pulse Ox 96 04/07/22 19:34 Data NPU : 04/03/22 09:54 04/03/22 09:54 A&P Assessment and plan (1) Delirium: Status: Acute (2) Delusion: Status: Acute (3) Low blood pressure: Status: Acute (4) Abdominal pain: Status: Acute (5) Hypothyroidism: Status: Acute (6) Hypertension: Status: Acute (7) Homicidal ideation: Status: Acute (8) Schizoaffective disorder: Status: Acute (9) Dementia: Status: Acute Plan This is a 62-year-old female with schizophrenia and dementia known from previous hospitalizations who returns with thoughts of killing her which she feels comes from the devil Plan: 1.? Continue current medication.? We will add back Invega 6 mg and Invega Sustenna 156 mg on March 27, 2022.? Plan to increase monthly dose and then consider discontinuing oral again.? Klonopin 0.5 mg p.o. 3 times daily was dropped to 0.5 mg p.o. twice daily and 0.25 mg q. afternoon dose discontinued.? Decreased dose to 0.25 mg the morning and 0.5 mg at night.? Started BuSpar 5 mg p.o. 3 times daily we will try to increase every 2 to 3 days or so to try to help with her anxiety. 2.? Continue every 15 minute checks for safety. 3.? Encourage individual, group and milieu therapies. 4.? We will recommend geriatric psychiatry care and follow-up if possible.? Patient continues to exhibit symptoms that would warrant geriatric follow-up and believe she would best be managed in a geriatric facility if she were to return.? Working with social work team to determine the viability of this option.? 124 AB completed and hope is that approval and acceptance by next sunday. 5.? Appreciate the medical consult and will continue to make sure there is no comorbid medical condition pointing her psychiatric presentation. 6.? The greatest concern at this point is that the discontinuation of the Klon opin should be something that could be managed in another (maybe lesser acute) setting but she?s been discharged and readmitted at a geriatric facility that took the Klonopin away immediately causing her great distress and leading to outpatient doctor resuming the Klonopin at full strength resuming her previous medication that was an effective in controlling her psychosis and ended up with her returning right back here to the hospital in a similar or worse condition than her last visit. Involuntary Hold Information 96 Hour Hold: 96 Hour Involuntary Admission: No Attestations NPU Medical Necessity Statement*: Inpatient hospitalization is medically necessary and the clinically appropriate intervention at this time.? We will initiate medications and make changes as indicated.? Likely length of stay 5-7 days. Hope is for stability to allow discharge to home if the taper continues to go well or transfer to [facility] next week for continued slow convalescence. Coding Level of Care Code Acute Valve Repairer Reclamation for Vicki Fwtuan Diagnoses Delirium R41.0 Delusion F22 Low blood pressure I95.9 Abdominal pain R10.9 Hypothyroidism E03.9 Hypertension I10 Homicidal ideation R45.850 Schizoaffective disorder F25.9 Dementia F03.90
[2022-04-07 19:34] VITALS: BP 107/72; PULSE 66; RESP 16; TEMP 36.8; O2SAT 96
[2022-04-07] MEDS: atorvastatin 40 mg Tablet 10 MG PO (20:39)
[2022-04-07] MEDS: CLONazepam 0.5 mg Tablet PO (20:40)
[2022-04-08 06:00] VITALS: BP 103/73; PULSE 69; RESP 17; TEMP 36.8; O2SAT 94
[2022-04-08] MEDS: sucralfate 1 gm Tablet PO ×3 (06:04→15:00)
[2022-04-08] MEDS: pantoprazole DR 40 mg Tablet PO ×2 (06:04→15:00)
[2022-04-08] MEDS: CLONazepam 0.5 mg Tablet 0.25 MG PO (06:04)
[2022-04-08] MEDS: BuSPIRONE 10 mg Tablet 5 MG PO ×2 (09:14→14:10)
[2022-04-08] MEDS: hyDROXYzine 25 mg Capsule 50 MG PO (09:14)
[2022-04-08] MEDS: escitalopram 10 mg Tablet 20 MG PO (09:14)
[2022-04-08] MEDS: midodrine 5 mg TABLET PO ×3 (09:14→20:28)
[2022-04-08] MEDS: metoprolol tartrate 25 mg Tablet PO ×2 (09:14→20:28)
[2022-04-08] MEDS: lithium carbonate 300 mg Capsule PO ×2 (09:14→20:29)
[2022-04-08] MEDS: paliperidone ER 6 mg Tablet PO (09:15)
--- NOTE | 2022-04-08 09:18 | PC.NURSE ---
PT CAME TO NURSES STATION TEARFUL, FEELING ANXIOUS. PT STATES I FEEL LIKE IM DYING'. DENIES CHEST PAIN. STATES SHE IS FEELING ANXIOUS, VISTERIL WAS GIVEN. PT WAS ASSISTED IN THE SHOWER BY STAFF.
[2022-04-08] MEDS: OLANZapine 5 mg ODT PO (12:43)
--- NOTE | 2022-04-08 12:43 | PC.NURSE ---
Addendum entered by Lima Mendez LPN 04/08/22 12:46: PT REPEATEDLY STATES THE DEVIL IS COMING TO GET HER. STAFF REASSURED HER THAT SHE IS SAFE HERE Original Note: PRN PT IS VERY TEARFUL AND ANXIOUS. OLANZAPINE GIVEN.
[2022-04-08 13:26] VITALS: BP 128/85; PULSE 70; RESP 17; TEMP 36.4; O2SAT 97
--- NOTE | 2022-04-08 17:58 | W.PM.NPUPNS ---
Subjective NPU Subjective: Patient continues to seem to have slightly more spontaneous conversation but she often goes back and forth between seeming fine and being quite tearful and reporting anxiety and today her question was again about anxiety medication and whether the devil was going to come get her when she dies. Otherwise things were changed and we did discuss the risk benefits alternatives of increasing her BuSpar 5 mg to 10 mg p.o. twice daily and she understood and agreed to proceed as is documented in this note. Mental Status Exam MSE Comments: This is an obese elderly white female looking older than her stated age with hospital scrubs on with limited grooming and eye contact.? Has a worsening malar rash on her face.? No abnormal movements except for lessening psychomotor retardation walking with fairly stable gait.? Cooperative with exam in no acute distress. Speech was more normal rate and volume, but still slowed.? Mood described as scared, do you have any strong anxiety medications, affect less subdued, but does not appear anxious.? Thought process, somewhat organized. Thought content: patient denied suicidal or homicidal ideation, no delusions reported but she did have return of conversation reflective of hyperreligious or paranoid delusions. She denied auditory or visual hallucinations today. Attention and concentration were intact and memory appeared more reliable but none were formally tested. She is alert and oriented three times. Insight and judgment are limited. Impulse control is impaired. Vitals/I&O/Wt Last Vital Signs Temp 98.0 F 04/08/22 20:09 Pulse 84 04/08/22 20:09 Resp 16 04/08/22 20:09 BP 93/63 04/08/22 20:09 Pulse Ox 95 04/08/22 20:09 04/08/22 14:59 Intake Total Balance Weight last 48 hrs Weight 89.811 kg Data NPU : 04/03/22 09:54 04/03/22 09:54 A&P Assessment and plan (1) Delirium: Status: Acute (2) Delusion: Status: Acute (3) Low blood pressure: Status: Acute (4) Abdominal pain: Status: Acute (5) Hypothyroidism: Status: Acute (6) Hypertension: Status: Acute (7) Homicidal ideation: Status: Acute (8) Schizoaffective disorder: Status: Acute (9) Dementia: Status: Acute Plan This is a 62-year-old female with schizophrenia and dementia known from previous hospitalizations who returns with thoughts of killing her which she feels comes from the devil Plan: 1.? Continue current medication.? We will add back Invega 6 mg and Invega Sustenna 156 mg on March 27, 2022.? Plan to increase monthly dose and then consider discontinuing oral again.? Klonopin 0.5 mg p.o. 3 times daily was dropped to 0.5 mg p.o. twice daily and 0.25 mg q. afternoon dose discontinued.? Decreased dose to 0.25 mg the morning and 0.5 mg at night.? Started BuSpar 5 mg p.o. 3 times daily and increased it to 10 mg p.o. twice daily. 2.? Continue every 15 minute checks for safety. 3.? Encourage individual, group and milieu therapies. 4.? We will recommend geriatric psychiatry care and follow-up if possible.? Patient continues to exhibit symptoms that would warrant geriatric follow-up and believe she would best be managed in a geriatric facility if she were to return.? Working with social work team to determine the viability of this option.? 124 AB completed and hope is that approval and acceptance by next sunday. 5.? Appreciate the medical consult and will continue to make sure there is no comorbid medical condition pointing her psychiatric presentation. 6.? The greatest concern at this point is that the discontinuation of the Klonopin should be something that could be managed in another (maybe lesser acute) setting but she?s been discharged and readmitted at a geriatric facility that took the Klonopin away immediately causing her great distress and leading to outpatient doctor resuming the Klonopin at full strength resuming her previous medication that was an effective in controlling her psychosis and ended up with her returning right back here to the hospital in a similar or worse condition than her last visit. Involuntary Hold Information 96 Hour Hold: 96 Hour Involuntary Admission: No Attestations NPU Medical Necessity Statement*: Inpatient hospitalization is medically necessary and the clinically appropriate intervention at this time.? We will initiate medications and make changes as indicated.? Likely length of stay 4-6 days. Hope is for stability to allow discharge to home if the taper continues to go well or transfer to [facility] next week for continued slow convalescence. Coding Level of Care Code Acute Corner Bead Operator for Vicki Bach Diagnoses Delirium R41.0 Delusion F22 Low blood pressure I95.9 Abdominal pain R10.9 Hypothyroidism E03.9 Hypertension I10 Homicidal ideation R45.850 Schizoaffective disorder F25.9 Dementia F03.90
[2022-04-08] MEDS: BuSPIRONE 10 mg Tablet PO (18:12)
[2022-04-08 20:09] VITALS: BP 93/63; PULSE 84; RESP 16; TEMP 36.7; O2SAT 95
[2022-04-08] MEDS: atorvastatin 40 mg Tablet 10 MG PO (20:28)
[2022-04-08] MEDS: CLONazepam 0.5 mg Tablet PO (20:29)
--- NOTE | 2022-04-08 20:38 | PC.NURSE ---
PT IN BED RESTING WITH EYES CLOSED. WHEN APPROACHED BY STAFF REPORTS SHE IS NOT GOOD. WHEN ASKED ABOUT WHAT THIS MEANS PT BEGINS TALKING ABOUT HER STOMACH NOT BEING RIGHT. WHEN ASKED TO DESCRIBE OT IS UNABLE. DENIES FEELING PAIN, DENIES FEELING NAUSEATED, DENIES FEELING FULL, HAS SNACK AT BEDSIDE. REPORTS LAST BM WAS YESTERDAY. BOWEL SOUNDS PRESENT IN ALL 4 QUADS. REPORTS THAT ANXIETY REMAINS HIGH THIS EVENING. DOES DENY SI/HI AND AVH. SPEECH IS DIFFICULT TO UNDERSTAND AND DELAYED AT TIMES.
[2022-04-09 05:24] VITALS: BMI 35.0
[2022-04-09 06:00] VITALS: BP 121/76; PULSE 62; RESP 20; TEMP 36.8; O2SAT 94
[2022-04-09] MEDS: pantoprazole DR 40 mg Tablet PO ×2 (06:24→15:01)
[2022-04-09] MEDS: CLONazepam 0.5 mg Tablet 0.25 MG PO (06:24)
[2022-04-09] MEDS: sucralfate 1 gm Tablet PO ×3 (06:24→15:01)
[2022-04-09] MEDS: paliperidone ER 6 mg Tablet PO (08:59)
[2022-04-09] MEDS: metoprolol tartrate 25 mg Tablet PO ×2 (09:00→20:19)
[2022-04-09] MEDS: escitalopram 10 mg Tablet 20 MG PO (09:00)
[2022-04-09] MEDS: midodrine 5 mg TABLET PO ×3 (09:00→20:18)
[2022-04-09] MEDS: BuSPIRONE 10 mg Tablet PO ×3 (09:00→17:56)
[2022-04-09] MEDS: lithium carbonate 300 mg Capsule PO ×2 (09:00→20:19)
[2022-04-09] MEDS: hyDROXYzine 25 mg Capsule 50 MG PO (09:00)
--- NOTE | 2022-04-09 09:01 | PC.NURSE ---
Addendum entered by Lima Mendez LPN 04/09/22 09:47: PT IS BACK UP TO THE NURSES STATION STATING HER ANXIETY HAS NOT IMPROVED. OLANZAPINE GIVEN. Original Note: PT IS VERY TEARFUL AT THE NURSES STATION THIS MORNING. PT STATES SHE IS ANXIOUS. VISTERIL GIVEN
[2022-04-09] MEDS: OLANZapine 5 mg ODT PO ×2 (09:47→14:16)
[2022-04-09] MEDS: diphenhydrAMINE 50 mg Capsule PO (10:37)
[2022-04-09 14:00] VITALS: BP 93/59; PULSE 75; RESP 18; TEMP 36.5; O2SAT 94
--- NOTE | 2022-04-09 14:20 | W.PM.NPUPNS ---
Subjective NPU Subjective: Patient presented today reporting that she?s doing OK but continues to focus on anxiety. I continue to explain that we are tapering off the Klonopin with hope that we will be able to manage her off of the Klonopin and this will help with her cognition. We discussed continuing to titrate the dose of BuSpar and host of having something as an alternative to manage what she is describing his anxiety. Her visited today and she seemed very happy and is starting to be more reactive in her expressions. Mental Status Exam MSE Comments: This is an obese elderly white female looking older than her stated age with hospital scrubs on with limited grooming and eye contact.? Has a worsening malar rash on her face.? No abnormal movements except for lessening psychomotor retardation walking with fairly stable gait.? Cooperative with exam in no acute distress. Speech was more normal rate and volume, but still slowed.? Mood described as anxious but happy is visiting, affect less subdued, but does not appear anxious.? Thought process, somewhat organized. Thought content: patient denied suicidal or homicidal ideation, no delusions reported or noted. She denied auditory or visual hallucinations today. Attention and concentration were intact and memory appeared more reliable but none were formally tested. She is alert and oriented three times. Insight and judgment are limited. Impulse control is impaired. Vitals/I&O/Wt Last Vital Signs Temp 98.3 F 04/09/22 06:00 Pulse 62 04/09/22 06:00 Resp 20 H 04/09/22 06:00 BP 121/76 04/09/22 06:00 Pulse Ox 94 04/09/22 06:00 04/08/22 04/09/22 04/09/22 22:59 06:59 14:59 Intake Total 240 / 240 Balance 240 / 240 Weight last 48 hrs Weight 89.811 kg Data NPU : 04/03/22 09:54 04/03/22 09:54 A&P Assessment and plan (1) Delirium: Status: Acute (2) Delusion: Status: Acute (3) Low blood pressure: Status: Acute (4) Abdominal pain: Status: Acute (5) Hypothyroidism: Status: Acute (6) Hypertension: Status: Acute (7) Homicidal ideation: Status: Acute (8) Schizoaffective disorder: Status: Acute (9) Dementia: Status: Acute Plan This is a 62-year-old female with schizophrenia and dementia known from previous hospitalizations who returns with thoughts of killing her which she feels comes from the devil Plan: 1.? Continue current medication.? We will add back Invega 6 mg and Invega Sustenna 156 mg on March 27, 2022.? Plan to increase monthly dose and then consider discontinuing oral again.? Klonopin 0.5 mg p.o. 3 times daily was dropped to 0.5 mg p.o. twice daily and 0.25 mg q. afternoon dose discontinued.? Decreased dose to 0.25 mg the morning and 0.5 mg at night.? Started BuSpar 5 mg p.o. 3 times daily and increased it to 10 mg p.o. twice daily. 2.? Continue every 15 minute checks for safety. 3.? Encourage individual, group and milieu therapies. 4.? We will recommend geriatric psychiatry care and follow-up if possible.? Patient continues to exhibit symptoms that would warrant geriatric follow-up and believe she would best be managed in a geriatric facility if she were to return.? Working with social work team to determine the viability of this option.? 124 AB completed and hope is that approval and acceptance by next sunday. 5.? Appreciate the medical consult and will continue to make sure there is no comorbid medical condition pointing her psychiatric presentation. 6.? The greatest concern at this point is that the discontinuation of the Klonopin should be something that could be managed in another (maybe lesser acute) setting but she?s been discharged and readmitted at a geriatric facility that took the Klonopin away immediately causing her great distress and leading to outpatient doctor resuming the Klonopin at full strength resuming her previous medication that was an effective in controlling her psychosis and ended up with her returning right back here to the hospital in a similar or worse condition than her last visit. Involuntary Hold Information 96 Hour Hold: 96 Hour Involuntary Admission: No Attestations NPU Medical Necessity Statement*: Inpatient hospitalization is medically necessary and the clinically appropriate intervention at this time.? We will initiate medications and make changes as indicated.? Likely length of stay 3-5 days. Hope is for stability to allow discharge to home if the taper continues to go well or transfer to [facility] next week for continued slow convalescence. Coding Level of Care Code Acute Renewable Energy Division Manager for Vicki Bach Diagnoses Delirium R41.0 Delusion F22 Low blood pressure I95.9 Abdominal pain R10.9 Hypothyroidism E03.9 Hypertension I10 Homicidal ideation R45.850 Schizoaffective disorder F25.9 Dementia F03.90
[2022-04-09 20:02] VITALS: BP 99/62; PULSE 87; RESP 16; TEMP 36.9; O2SAT 94
[2022-04-09] MEDS: atorvastatin 40 mg Tablet 10 MG PO (20:19)
[2022-04-09] MEDS: CLONazepam 0.5 mg Tablet PO (20:19)
[2022-04-09] MEDS: haloperidol 5 mg Tablet PO (23:54)
[2022-04-10 06:00] VITALS: BP 133/92; PULSE 69; RESP 20; TEMP 36.3; O2SAT 95
[2022-04-10] MEDS: CLONazepam 0.5 mg Tablet 0.25 MG PO (06:36)
[2022-04-10] MEDS: pantoprazole DR 40 mg Tablet PO ×2 (06:36→15:30)
[2022-04-10] MEDS: sucralfate 1 gm Tablet PO ×3 (06:36→15:31)
--- NOTE | 2022-04-10 08:55 | PC.NURSE ---
IN BED RESTING AROUSES TO VOICE. COMPLETED ASSESSMENT AND WENT BACK TO SLEEP. DENIES SI/HI AND AVH AT THIS TIME. DENIES PAIN. STATES, LET ME GO BACK TO SLEEP, ENCOURAGED TO GET UP TO EAT BUT DECLINES.
[2022-04-10] MEDS: midodrine 5 mg TABLET PO ×3 (09:16→20:17)
[2022-04-10] MEDS: lithium carbonate 300 mg Capsule PO ×2 (09:16→20:17)
[2022-04-10] MEDS: paliperidone ER 6 mg Tablet PO (09:16)
[2022-04-10] MEDS: BuSPIRONE 10 mg Tablet PO ×2 (09:16→17:37)
[2022-04-10] MEDS: metoprolol tartrate 25 mg Tablet PO ×2 (09:16→20:17)
[2022-04-10] MEDS: escitalopram 10 mg Tablet 20 MG PO (09:16)
[2022-04-10] MEDS: hyDROXYzine 25 mg Capsule 50 MG PO (13:27)
[2022-04-10 14:00] VITALS: BP 117/80; PULSE 70; RESP 17; TEMP 36.4; O2SAT 96
--- NOTE | 2022-04-10 16:49 | P.NPUPN_ITS ---
Subjective NPU Subjective: Patient presents today reporting that she is doing okay. She once again was focused on her medication this time having a sticky note that must of been from one of the nurses. It had on it that she was taking the BuSpar and her current dose of the Klonopin. She was very inquisitive about the medication and whether she needed to keep taking them when she went home. We discussed the fact that we are continuing to taper off the Klonopin with a goal of no medication. We agreed to continue to titrate the BuSpar in hopes of managing her anxiety. Continues not to appear anxious but reports significant anxiety that at times is overwhelming. Otherwise we discussed a hope that we would have an answer about the facility versus whether we might be forced to discharge her home for continued convalescence. Mental Status Exam MSE Comments: This is an obese elderly white female looking older than her stated age with hospital scrubs on with limited grooming and eye contact.? Has a malar rash on her face that is starting to improve. No abnormal movements except for lessening psychomotor retardation walking with fairly stable gait.? Cooperative with exam in no acute distress. Speech was more normal rate and volume, but still slowed.? Mood described as anxious , affect less subdued, but does not appear anxious.? Thought process, somewhat organized. Thought content: patient denied suicidal or homicidal ideation, no delusions reported or noted. She denied auditory or visual hallucinations today. Attention and concentration were intact and memory appeared more reliable but none were formally tested. She is alert and oriented three times. Insight and judgment are limited. Impulse control is impaired. Vitals/I&O/Wt Last Vital Signs Temp 97.5 F L 04/10/22 14:00 Pulse 70 04/10/22 14:00 Resp 17 04/10/22 14:00 BP 117/80 04/10/22 14:00 Pulse Ox 96 04/10/22 14:00 Weight last 48 hrs Weight 89.811 kg Data NPU : 04/03/22 09:54 04/03/22 09:54 A&P Assessment and plan (1) Delirium: Status: Acute (2) Delusion: Status: Acute (3) Low blood pressure: Status: Acute (4) Abdominal pain: Status: Acute (5) Hypothyroidism: Status: Acute (6) Hypertension: Status: Acute (7) Homicidal ideation: Status: Acute (8) Schizoaffective disorder: Status: Acute (9) Dementia: Status: Acute Plan This is a 62-year-old female with schizophrenia and dementia known from previous hospitalizations who returns with thoughts of killing her which she feels comes from the devil Plan: 1.? Continue current medication.? We will add back Invega 6 mg and Invega Antoinette tenna 156 mg on March 27, 2022.? Plan to increase monthly dose and then consider discontinuing oral again.? Klonopin 0.5 mg p.o. 3 times daily was dropped to 0.5 mg p.o. twice daily and 0.25 mg q. afternoon dose discontinued.? Decreased dose to 0.25 mg the morning and 0.5 mg at night.? Started BuSpar 5 mg p.o. 3 times daily and increased it to 10 mg p.o. twice daily, with plan of going to 3 times daily. 2.? Continue every 15 minute checks for safety. 3.? Encourage individual, group and milieu therapies. 4.? We will recommend geriatric psychiatry care and follow-up if possible.? Patient continues to exhibit symptoms that would warrant geriatric follow-up and believe she would best be managed in a geriatric facility if she were to return.? Working with social work team to determine the viability of this option.? 124 AB completed and hope is that approval and acceptance by next sunday. 5.? Appreciate the medical consult and will continue to make sure there is no comorbid medical condition pointing her psychiatric presentation. 6.? The greatest concern at this point is that the discontinuation of the Klonopin should be something that could be managed in another (maybe lesser acute) setting but she?s been discharged and readmitted at a geriatric facility that took the Klonopin away immediately causing her great distress and leading to outpatient doctor resuming the Klonopin at full strength resuming her previous medication that was an effective in controlling her psychosis and ended up with her returning right back here to the hospital in a similar or worse condition than her last visit. Involuntary Hold Information 96 Hour Hold: 96 Hour Involuntary Admission: No Attestations NPU Medical Necessity Statement*: Inpatient hospitalization is medically necessary and the clinically appropriate intervention at this time.? We will initiate medications and make changes as indicated.? Likely length of stay 2.4 days. Hope is for stability to allow discharge to home if the taper continues to go well or transfer to [facility] this week for continued slow convalescence. Coding Level of Care Code Acute Manager Media for g Fwd Diagnoses Delirium R41.0 Delusion F22 Low blood pressure I95.9 Abdominal pain R10.9 Hypothyroidism E03.9 Hypertension I10 Homicidal ideation R45.850 Schizoaffective disorder F25.9 Dementia F03.90
[2022-04-10 20:12] VITALS: BP 96/58; PULSE 77; RESP 18; TEMP 36.6; O2SAT 95
[2022-04-10] MEDS: CLONazepam 0.5 mg Tablet PO (20:17)
[2022-04-10] MEDS: atorvastatin 40 mg Tablet 10 MG PO (20:17)
[2022-04-11 06:00] VITALS: BP 113/71; PULSE 68; RESP 15; TEMP 36.5; O2SAT 93
[2022-04-11] MEDS: CLONazepam 0.5 mg Tablet 0.25 MG PO (06:10)
[2022-04-11] MEDS: sucralfate 1 gm Tablet PO ×3 (06:10→17:25)
[2022-04-11] MEDS: pantoprazole DR 40 mg Tablet PO ×2 (06:10→17:25)
[2022-04-11] MEDS: BuSPIRONE 10 mg Tablet PO ×3 (09:28→20:34)
[2022-04-11] MEDS: escitalopram 10 mg Tablet 20 MG PO (09:28)
[2022-04-11] MEDS: paliperidone ER 6 mg Tablet PO (09:28)
[2022-04-11] MEDS: lithium carbonate 300 mg Capsule PO ×2 (09:28→20:34)
[2022-04-11] MEDS: metoprolol tartrate 25 mg Tablet PO ×2 (09:28→20:34)
[2022-04-11] MEDS: midodrine 5 mg TABLET PO ×3 (09:29→20:34)
[2022-04-11 13:51] VITALS: BP 116/84; PULSE 74; RESP 17; TEMP 36.8; O2SAT 95
--- NOTE | 2022-04-11 16:51 | P.NPUPN_ITS ---
Subjective NPU Subjective: Patient presents today continuing to have very slow improvement. She has continued to identify anxiety as an issue and we will continue to slowly decrease the Klonopin. We discussed the fact that we are continuing to increase her BuSpar now up to 10 mg p.o. 3 times daily with the goal of having a nonbenzodiazepine anxiety agent given how she appears to be functioning with the benzodiazepines on board. We agreed we would discuss the situation with her and also talked about the fact that we are awaiting word from the facility to which we have referred and hopefully make some decisions in the next 48 hours as to her disposition. Mental Status Exam MSE Comments: This is an obese elderly white female looking older than her stated age with hospital scrubs on with limited grooming and eye contact.? Has a malar rash on her face that is starting to improve. No abnormal movements except for lessening psychomotor retardation walking with fairly stable gait.? Cooperative with exam in no acute distress. Speech was more normal rate and volume, but still slowed.? Mood described as okay but anxious , affect less subdued, but does not appear anxious.? Thought process, somewhat organized. Thought content: patient denied suicidal or homicidal ideation, no delusions reported or noted she did report some hyperreligious thoughts about the devil but denied any delusional or hallucinatory aspect to it. She denied auditory or visual hallucinations today. Attention and concentration were intact and memory appeared more reliable but none were formally tested. She is alert and oriented three times. Insight and judgment are limited. Impulse control is impaired. Vitals/I&O/Wt Last Vital Signs Temp 98.3 F 04/11/22 13:51 Pulse 74 04/11/22 13:51 Resp 17 04/11/22 13:51 BP 116/84 04/11/22 13:51 Pulse Ox 95 04/11/22 13:51 Data NPU : 04/03/22 09:54 04/03/22 09:54 A&P Assessment and plan (1) Delirium: Status: Acute (2) Delusion: Status: Acute (3) Low blood pressure: Status: Acute (4) Abdominal pain: Status: Acute (5) Hypothyroidism: Status: Acute (6) Hypertension: Status: Acute (7) Homicidal ideation: Status: Acute (8) Schizoaffective disorder: Status: Acute (9) Dementia: Status: Acute Plan This is a 62-year-old female with schizophrenia and dementia known from previous hospitalizations who returns with thoughts of killing her which she feels comes from the devil Plan: 1.? Continue current medication.? We will add back Invega 6 mg and Invega Sustenna 156 mg on March 27, 2022.? Plan to increase monthly dose and then consider discontinuing oral again.? Klonopin 0.5 mg p.o. 3 times daily was dropped to 0.5 mg p.o. twice daily and 0.25 mg q. afternoon dose discontinued.? Decreased dose to 0.25 mg the morning and 0.5 mg at night. We will discontinue morning dose after tomorrow. Started BuSpar 5 mg p.o. 3 times daily and increased it to 10 mg p.o. 3 times daily. 2.? Continue every 15 minute checks for safety. 3.? Encourage individual, group and milieu therapies. 4.? We will recommend geriatric psychiatry care and follow-up if possible.? Patient continues to exhibit symptoms that would warrant geriatric follow-up and believe she would best be managed in a geriatric facility if she were to return.? Working with social work team to determine the viability of this option.? 124 AB completed and hope is that approval and acceptance by next sunday. 5.? Appreciate the medical consult and will continue to make sure there is no comorbid medical condition pointing her psychiatric presentation. 6.? The greatest concern at this point is that the discontinuation of the Klon opin should be something that could be managed in another (maybe lesser acute) setting but she?s been discharged and readmitted at a geriatric facility that took the Klonopin away immediately causing her great distress and leading to outpatient doctor resuming the Klonopin at full strength resuming her previous medication that was an effective in controlling her psychosis and ended up with her returning right back here to the hospital in a similar or worse condition than her last visit. Involuntary Hold Information 96 Hour Hold: 96 Hour Involuntary Admission: No Attestations NPU Medical Necessity Statement*: Inpatient hospitalization is medically necessary and the clinically appropriate intervention at this time.? We will initiate medications and make changes as indicated.? Likely length of stay 1-3 days. Hope is for stability to allow discharge to home if the taper continues to go well or transfer to [facility] this week for continued slow convalescence. Coding Level of Care Code Acute Sap Payroll Consultant for Chg Fwd Diagnoses Delirium R41.0 Delusion F22 Low blood pressure I95.9 Abdominal pain R10.9 Hypothyroidism E03.9 Hypertension I10 Homicidal ideation R45.850 Schizoaffective disorder F25.9 Dementia F03.90
[2022-04-11] MEDS: atorvastatin 40 mg Tablet 10 MG PO (20:34)
[2022-04-11] MEDS: CLONazepam 0.5 mg Tablet PO (20:34)
[2022-04-11 21:20] VITALS: BP 113/72; PULSE 70; RESP 20; TEMP 36.6; O2SAT 96
[2022-04-12 06:00] VITALS: BP 98/62; PULSE 70; RESP 16; TEMP 36.9; O2SAT 93
[2022-04-12] MEDS: pantoprazole DR 40 mg Tablet PO ×2 (06:53→16:16)
[2022-04-12] MEDS: sucralfate 1 gm Tablet PO ×3 (06:53→16:16)
[2022-04-12] MEDS: CLONazepam 0.5 mg Tablet 0.25 MG PO (06:54)
[2022-04-12] MEDS: lithium carbonate 300 mg Capsule PO ×2 (08:02→20:09)
[2022-04-12] MEDS: metoprolol tartrate 25 mg Tablet PO ×2 (08:03→20:09)
[2022-04-12] MEDS: paliperidone ER 6 mg Tablet PO (08:03)
[2022-04-12] MEDS: BuSPIRONE 10 mg Tablet PO ×3 (08:03→20:09)
[2022-04-12] MEDS: midodrine 5 mg TABLET PO ×3 (08:03→20:09)
[2022-04-12] MEDS: escitalopram 10 mg Tablet 20 MG PO (08:03)
[2022-04-12] MEDS: hyDROXYzine 25 mg Capsule 50 MG PO ×2 (10:47→17:19)
--- NOTE | 2022-04-12 11:55 | W.PM.NPUPNS ---
Subjective NPU Subjective: Patient presents today continuing to have very slow improvement.? She has continued to identify anxiety as an issue and we will continue to slowly decrease the Klonopin.? We discussed the fact that today is the last day of the morning dose of klonopin.? We discussed the situation with her as well as the fact that we are awaiting word from the facility to which we have referred her hopefully by tomorrow and hopefully make some decisions in the next 48 hours as to her disposition. Mental Status Exam MSE Comments: This is an obese elderly white female looking older than her stated age with hospital scrubs on with limited grooming and eye contact.? Malar rash on her face almost resolving. No abnormal movements except for lessening psychomotor retardation walking with fairly stable gait.? Cooperative with exam in no acute distress. Speech was more normal rate and volume, but still slowed.? Mood described as ok , affect less subdued, but does not appear anxious.? Thought process, somewhat organized. Thought content: patient denied suicidal or homicidal ideation, no delusions reported or noted she did report some hyperreligious thoughts about the devil but denied any delusional or hallucinatory aspect to it.? She denied auditory or visual hallucinations today. Attention and concentration were intact and memory appeared more reliable but none were formally tested. She is alert and oriented three times. Insight and judgment are limited. Impulse control is impaired. Vitals/I&O/Wt Last Vital Signs Temp 98.4 F 04/12/22 06:00 Pulse 70 04/12/22 06:00 Resp 16 04/12/22 06:00 BP 98/62 04/12/22 06:00 Pulse Ox 93 04/12/22 06:00 Data NPU : 04/03/22 09:54 04/03/22 09:54 A&P Assessment and plan (1) Delirium: Status: Acute (2) Delusion: Status: Acute (3) Low blood pressure: Status: Acute (4) Abdominal pain: Status: Acute (5) Hypothyroidism: Status: Acute (6) Hypertension: Status: Acute (7) Homicidal ideation: Status: Acute (8) Schizoaffective disorder: Status: Acute (9) Dementia: Status: Acute Plan This is a 62-year-old female with schizophrenia and dementia known from previous hospitalizations who returns with thoughts of killing her which she feels comes from the devil Plan: 1.? Continue current medication.? We will add back Invega 6 mg and Invega Sustenna 156 mg on March 27, 2022.? Plan to increase monthly dose and then consider discontinuing oral again.? Klonopin 0.5 mg p.o. 3 times daily was dropped to 0.5 mg p.o. twice daily and 0.25 mg q. afternoon dose discontinued.? Decreased dose to 0.25 mg the morning and 0.5 mg at night.? We will discontinue morning dose after tomorrow.? Started BuSpar 5 mg p.o. 3 times daily and increased it to 10 mg p.o. 3 times daily. 2.? Continue every 15 minute checks for safety. 3.? Encourage individual, group and milieu therapies. 4.? We will recommend geriatric psychiatry care and follow-up if possible.? Patient continues to exhibit symptoms that would warrant geriatric follow-up and believe she would best be managed in a geriatric facility if she were to return.? Working with social work team to determine the viability of this option.? 124 AB completed and hope is that approval and acceptance by next sunday. 5.? Appreciate the medical consult and will continue to make sure there is no comorbid medical condition pointing her psychiatric presentation. 6.? The greatest concern at this point is that the discontinuation of the Klonopin should be something that could be managed in another (maybe lesser acute) setting but she?s been discharged and readmitted at a geriatric facility that took the Klonopin away immediately causing her great distress and leading to outpatient doctor resuming the Klonopin at full strength resuming her previous medication that was an effective in controlling her psychosis and ended up with her returning right back here to the hospital in a similar or worse condition than her last visit. Involuntary Hold Information 96 Hour Hold: 96 Hour Involuntary Admission: No Attestations NPU Medical Necessity Statement*: Inpatient hospitalization is medically necessary and the clinically appropriate intervention at this time.? We will initiate medications and make changes as indicated.? Likely length of stay 1-3 days. Hope is for stability to allow discharge to home if the taper continues to go well or transfer to [facility] this week for continued slow convalescence. Coding Level of Care Code Acute Post Office Markup Clerk for Vicki Fwd Diagnoses Delirium R41.0 Delusion F22 Low blood pressure I95.9 Abdominal pain R10.9 Hypothyroidism E03.9 Hypertension I10 Homicidal ideation R45.850 Schizoaffective disorder F25.9 Dementia F03.90
[2022-04-12 14:00] VITALS: BP 95/65; PULSE 92; RESP 17; TEMP 36.9; O2SAT 96
[2022-04-12 19:57] VITALS: BP 118/77; PULSE 85; RESP 18; TEMP 36.6; O2SAT 94
[2022-04-12] MEDS: atorvastatin 40 mg Tablet 10 MG PO (20:09)
[2022-04-12] MEDS: CLONazepam 0.5 mg Tablet PO (20:09)
[2022-04-13 06:00] VITALS: BP 94/56; PULSE 66; RESP 17; TEMP 36.8; O2SAT 95
[2022-04-13] MEDS: CLONazepam 0.5 mg Tablet 0.25 MG PO (06:08)
[2022-04-13] MEDS: pantoprazole DR 40 mg Tablet PO (06:09)
[2022-04-13] MEDS: sucralfate 1 gm Tablet PO ×2 (06:09→12:09)
[2022-04-13] MEDS: escitalopram 10 mg Tablet 20 MG PO (08:21)
[2022-04-13] MEDS: paliperidone ER 6 mg Tablet PO (08:22)
[2022-04-13] MEDS: BuSPIRONE 10 mg Tablet PO ×2 (08:22→14:41)
[2022-04-13] MEDS: metoprolol tartrate 25 mg Tablet PO (08:22)
[2022-04-13] MEDS: midodrine 5 mg TABLET PO ×2 (08:22→14:41)
[2022-04-13] MEDS: lithium carbonate 300 mg Capsule PO (08:22)
[2022-04-13] MEDS: hyDROXYzine 25 mg Capsule 50 MG PO (12:52)
--- NOTE | 2022-04-13 13:18 | P.NPUDS_ITS ---
Diagnoses at Discharge Discharge Diagnosis (1) Delirium: Status: Acute (2) Delusion: Status: Acute (3) Low blood pressure: Status: Acute (4) Abdominal pain: Status: Acute (5) Hypothyroidism: Status: Acute (6) Hypertension: Status: Acute (7) Homicidal ideation: Status: Acute (8) Schizoaffective disorder: Status: Acute (9) Dementia: Status: Acute Reason for Visit Reason for Visit: STRESS; HI Brief History: History of Present Illness Jenniffer Hollingsworth is a 62 year old female who was admitted through our emergency department with the following report: HPI: [62]yo patient w/ hx of schizophrenia BIBA for acute HI and delusion.? Patient tells me that she wants to kill her and has a plan to do so.? On arrival, the patient is AAOx3 and cooperative with my evaluation. No focal complaints of chest pain, shortness of breath, palpitations, N/V, focal GI/ complaints. Currently denies SI. No complaints of hallucinations. She was admitted to the neuropsychiatry unit for definitive treatment of these issues.? She was admitted here in February and discharged on February 14 on Invega 6 mg daily, Lexapro 10 mg daily, clonazepam 0.5 mg 3 times daily and lithium 300 mg twice a day.? It was hoped that the clonazepam would be gradually titrated down over time.? Her said that she was supposed to take the Invega for a month after she got the injections so it is assumed that she was still taking th e Invega 6 mg.? Her reports that she was brought to our emergency room on March 02.? That emergency room note is below.? We did not have any beds in a took her to a facility called [place] .? According to her , they took her off of the clonazepam, Invega tablets and lithium and started her back on risperidone 1 mg twice a day.? When she came home she was hallucinating horribly according to the .? He eventually contacted Dr. Beltrán and got permission to restart the lithium and clonazepam.? She slept for about 12 hours after restarting those but then that hallucinations were completely gone.? She was then back at her baseline but started saying that she felt like killing her over this last weekend. Hospital Course Hospital Course She slowly acclimated to the individual, group and milieu therapies provided. She was put back on the previous medications including lithium 300 mg twice daily. She was placed on clonazepam 0.5 mg 3 times a day. However this was thought to be part of her mental confusion and she was gradually reduced to 0.5 mg at bedtime. She tolerated these doses and showed steady improvement during her stay. She was able to contract for safety outside hospital prior to discharge. During the hospitalization, patient had routine laboratory studies which were within normal limits except for few outliers. Additionally there was a general medical evaluation which was also within normal limits and revealed no new acute processes. Discharge Summary: At the time of discharge, lethality was denied and psychosis was resolving. She consistently denied any thoughts of harming her . Mood and anxiety were well managed. Patient endorsed a plan to follow-up with the aftercare recommendations of the treatment team. Patient was evaluated and deemed to be absent credible lethality, and had achieved the maximum benefit from an inpatient hospitalization, so was discharged. Involuntary Hold Information 96 Hour Hold: 96 Hour Involuntary Admission: No Mental Status Exam MSE Comments: This is an obese elderly white female looking older than her stated age with hospital scrubs on with limited grooming and eye contact.? No abnormal movements except for lessening psychomotor retardation walking with fairly stable gait.? Cooperative with exam in no acute distress. Speech was more normal rate and volume, but still slowed.? Mood described as ok , affect less subdued, but does not appear anxious.? Thought process, somewhat organized. Thought content: patient denied suicidal or homicidal ideation, no delusions reported or noted she did report some hyperreligious thoughts about the devil but denied any delusional or hallucinatory aspect to it.? She denied auditory or visual hallucinations today. Attention and concentration were intact and memory appeared more reliable but none were formally tested. She is alert and oriented three times. Insight and judgment are limited. Impulse control is impaired. Cognition: Patient Appearance: Appropriate Level of Consciousness: Awake, Appropriate, Follows Commands and Drowsy Patient Cognition Impaired: Yes Ability to Follow Directions: Good Patient Orientation (long list): Person, Name, Age and Birthday Comprehension Ability: Moderate Impairment Hallucination Type: None Delusion Description: Not Present Thought Process: Disorganized Affect: Affect Description: Depressed and Flat Behavior: Patient Behavior: Appropriate Speech Pattern: Delayed and Mumbled Discharge Data Studies Completed and Pending: Completed Studies During Hospitalization Category Date Time Status CT abdomen pelvis w con* [id number] Rout ine Cat Scan 04/03/22 15:56 Completed Radiology Impressions Abdomen/Pelvis CT 04/03/22 15:56 IMPRESSION: 1. Mild bilateral pleural fluid collections. 2. Stable moderate intrathoracic hiatal hernia. 3. Stable cholecystectomy. Laboratory Results WBC 8.1 10^3/uL (4.0- 10.0) 04/03/22 09:54 RBC 4.54 10^6/uL (4.1 -5.3) 04/03/22 09:54 Hgb 13.2 g/dL (11.5-1 5.3) 04/03/22 09:54 Hct 41.0 % (37.0-47.0 ) 04/03/22 09:54 MCV 90.3 fl (81-99) 04/03/22 09:54 MCH 29.1 pg (28.0-34. 0) 04/03/22 09:54 MCHC 32.2 g/dL (30.0-3 6.0) 04/03/22 09:54 RDW 13.3 % (12.1-15.1 ) 04/03/22 09:54 Plt Count 236 10^3/cmm (130 -400) 04/03/22 09:54 MPV 10.8 fL (7.4-10.4 ) H 04/03/22 09:54 Neut % (Auto) 69.8 % 03/26/22 18:40 Lymph % (Auto) 22.1 % 03/26/22 18:40 [place] % (Auto) 6.2 % 03/26/22 18:40 Eos % (Auto) 1.2 % 03/26/22 18:40 Baso % (Auto) 0.3 % 03/26/22 18:40 Neut # (Auto) 6.90 10^3/uL (1.8 -7.7) 03/26/22 18:40 Lymph # (Auto) 2.2 10^3/uL (0.8- 4.8) 03/26/22 18:40 [place] # (Auto) 0.6 10^3/uL (0.2- 0.9) 03/26/22 18:40 Eos # (Auto) 0.1 10^3/uL (0.0- 0.8) 03/26/22 18:40 Baso # (Auto) 0.0 10^3/uL (0.0- 0.1) 03/26/22 18:40 Nucleated RBC % (a uto) 0 % 03/26/22 18:40 Total Counted 100 (0-100) 04/03/22 09:54 Atypical Lymphs % 0.0 % (0-5) 04/03/22 09:54 Absolute Neutrophi ls 5.2 10^3/cmm (1.4 -6.5) 04/03/22 09:54 Segmented Neutroph ils 64 % 04/03/22 09:54 Abs Segm Neuts (Ma n) 5.2 10/cmm (1.6-7 .1) 04/03/22 09:54 Band Neutrophils 0.0 % 04/03/22 09:54 Abs Band Neuts (Ma n) 0.0 10^3/cmm (0.0 -1.2) 04/03/22 09:54 Absolute Lymphocyt es 2.4 10^3/cmm (1.2 -3.4) 04/03/22 09:54 Lymphocytes (Manua l) 30 % 04/03/22 09:54 Monocytes (Manual) 4.0 % 04/03/22 09:54 Absolute Monocytes 0.3 10^3/cmm (0.1 -0.6) 04/03/22 09:54 Eosinophils (Manua l) 2 % 04/03/22 09:54 Absolute Eosinophi ls 0.1 10^3/cmm (0.0 -0.7) 04/03/22 09:54 Basophils (Manual) 0.0 % 04/03/22 09:54 Absolute Basophils 0.0 10^3/cmm (0.0 -0.2) 04/03/22 09:54 Nucleated RBCs # 0.0 /100WBC 03/26/22 18:40 Platelet Estimate Normal (Normal) 04/03/22 09:54 ESR 4 mm/hr (0-15) 04/03/22 09:54 Sodium 139 mmol/L (136-1 45) 04/03/22 09:54 Potassium 3.6 mmol/L (3.5-5 .1) 04/03/22 09:54 Chloride 104 mmol/L (98-10 7) 04/03/22 09:54 Carbon Dioxide 27 mmol/L (22-29) 04/03/22 09:54 Anion Gap 11.6 (5-19) 04/03/22 09:54 BUN 13 mg/dL (8-23) 04/03/22 09:54 Creatinine 0.8 mg/dL (0.5-0. 9) 04/03/22 09:54 GFR Calculation 72.2 mL/min (90-1 30) L 04/03/22 09:54 Glucose 135 mg/dL (65-115 ) H 04/03/22 09:54 Estimat Average Gl ucose 114 04/03/22 09:54 Hemoglobin A1c 5.6 % (4.0-6.0) 04/03/22 09:54 Calculated Osmolal ity 290 mOsm/kg (285- 295) 04/03/22 09:54 Calcium 9.0 mg/dL (8.5-10 .5) 04/03/22 09:54 Total Bilirubin 0.3 mg/dL (0.15-1 .2) 04/03/22 09:54 AST 15 U/L (0-32) 04/03/22 09:54 ALT 21 U/L (0-33) 04/03/22 09:54 Alkaline Phosphata se 80 IU/L (35-105) 04/03/22 09:54 C-Reactive Protein 3.0 mg/L (0.0-4.9 ) 04/03/22 09:54 Total Protein 6.3 g/dL (6.6-8.7 ) L 04/03/22 09:54 Albumin 3.7 g/dL (3.5-5.2 ) 04/03/22 09:54 Globulin 2.6 g/dL (1.3-4.6 ) 04/03/22 09:54 Triglycerides 83 mg/dL (0-150) 04/03/22 09:54 Cholesterol 87 mg/dL (0-200) 04/03/22 09:54 LDL Cholesterol, C alc 33 mg/dL (50-129) L 04/03/22 09:54 Total VLDL Cholest liu 17 mg/dL (0-30) 04/03/22 09:54 HDL Cholesterol 37 mg/dL (60-100) L 04/03/22 09:54 Cholesterol/HDL Ra radha 2.35 mg/dL (0.0-4 .40) 04/03/22 09:54 Lipase 32 U/L (13-60) 03/26/22 18:40 TSH 2.28 uIU/mL (0.27 -4.20) 04/03/22 09:54 Random Cortisol 9.75 ug/dL (2.47- 19.5) 04/03/22 09:54 Urine Color Yellow (Yellow) 03/26/22 19:00 Urine Appearance Clear (CLEAR) 03/26/22 19:00 Urine pH 7 (5-7) 03/26/22 19:00 Ur Specific Gravit y 1.010 (1.005-1.0 30) 03/26/22 19:00 Urine Protein Neg (Negative) 03/26/22 19:00 Urine Glucose (UA) Norm (Normal) 03/26/22 19:00 Urine Ketones Negative (Negati ve) 03/26/22 19:00 Urine Blood Neg (Negative) 03/26/22 19:00 Urine Nitrate Negative (Negati ve) 03/26/22 19:00 Urine Bilirubin Neg (Negative) 03/26/22 19:00 Urine Urobilinogen 1 mg/dL (Negative ) H 03/26/22 19:00 Ur Leukocyte Emma ase Negative (Negati ve) 03/26/22 19:00 Salicylates < 0.3 mg/dL (3-10 ) L 03/26/22 18:40 Urine Opiates Scre en Negative ng/mL (N egative) 03/26/22 19:00 Acetaminophen < 5.0 ug/mL (10-3 0) L 03/26/22 18:40 Ur Barbiturates Sc reen Negative ng/mL (N egative) 03/26/22 19:00 Ur Phencyclidine S crn Negative ng/mL (N egative) 03/26/22 19:00 Ur Amphetamines Sc reen Negative ng/mL (N egative) 03/26/22 19:00 U Benzodiazepines Scrn Negative ng/mL (N egative) 03/26/22 19:00 Rosa 0.4 mmol/L (0.6-1 .2) L 04/03/22 18:56 Urine Cocaine Scre en Negative ng/mL (N egative) 03/26/22 19:00 U Marijuana (THC) Screen Negative ng/mL (N egative) 03/26/22 19:00 Ethyl Alcohol < 10 mg/dL (0-10) 03/26/22 18:40 Vitals: Last Vital Signs Temp 98.3 F 04/13/22 06:00 Pulse 66 04/13/22 06:00 Resp 17 04/13/22 06:00 BP 94/56 04/13/22 06:00 Pulse Ox 95 04/13/22 06:00 Discharge Plan Discharge Patient Disposition: Home Condition: Stable Prescriptions: New clonazepam 0.5 mg Tablet 0.5 mg PO BEDTIME 30 Days Qty: 30 1RF buspirone 10 mg Tablet 10 mg PO TID 30 Days Qty: 90 1RF Continued sucralfate 1 gram tablet 1 g PO 07,11,16 0RF lithium carbonate 300 mg capsule 300 mg PO 09,21 30 Days Qty: 60 1RF escitalopram oxalate 10 mg tablet 20 mg PO DAILY 30 Days Qty: 30 1RF paliperidone 6 mg Tablet Extended Release 24hr 6 mg PO DAILY 30 Days Qty: 30 1RF atorvastatin 10 mg tablet 10 mg PO BEDTIME 0RF metoprolol tartrate 25 mg tablet 25 mg PO ,21 0RF pantoprazole 40 mg tablet,delayed release (DR/EC) 40 mg PO ,16 0RF lisinopril 10 mg tablet 30 mg PO DAILY 0RF Invega Sustenna 156 mg/mL syringe 156 mg IM Q30D 0RF Discontinued clonazepam 0.5 mg Tablet 0.5 mg PO TID@,15,21 0RF Discharge Orders: Discharge Order (Routine); Ordered 04/13/22 Ordered By: Kurt Meyers Referrals: Dottie Fox MD [[place]] - Talat Ayala [Primary Care Provider] - Discharge Diet: Regular Discharge Activity: Resume usual activity Patient Instructions: Opioid Safety Discharge Attestations NPU Time Spent in Discharge Care*: less than 30 min Specific Discharge Activities: Specific discharge activities: educating patient, discussing with patient case coordinator/social workers/dc planners, documenting/other paperwork and evaluating patient/reviewing data Coding Level of Care Code Acute Chg FW DC note Diagnoses Delirium R41.0 Delusion F22 Low blood pressure I95.9 Abdominal pain R10.9 Hypothyroidism E03.9 Hypertension I10 Homicidal ideation R45.850 Schizoaffective disorder F25.9 Dementia F03.90
[2022-04-13 13:28] VITALS: BP 94/56; PULSE 66; RESP 17; TEMP 36.8; O2SAT 95
[2022-04-13 14:00] VITALS: BP 119/82; PULSE 77; RESP 16; TEMP 36.5; O2SAT 98
--- NOTE | 2022-04-13 14:29 | DCPLANNER ---
IMM completed on 04/13/22 @ 0321. Pt was given a copy of rights.
== END 2022-04-13 14:49 | disposition home or self-care (01) | DRG 885 ==
LOC: ER 21:38 → NP 23:17
PROVIDERS: Student in an Organized Health Care Education/Training Program; Admitting Provider Psychiatry & Neurology Psychiatry; Emergency Provider Emergency Medicine; PCP Nurse Practitioner Family; Visit Provider Psychiatry & Neurology Psychiatry
DX: F20.9 Schizophrenia, unspecified (principal); R45.851 Suicidal ideations; R45.850 Homicidal ideations; Z86.16 Personal history of COVID-19; Z87.01 Personal history of pneumonia (recurrent); F03.90 Unspecified dementia, unspecified severity, without behavioral disturbance, psychotic disturbance, mood disturbance, and anxiety; I10 Essential (primary) hypertension; E03.9 Hypothyroidism, unspecified; R10.9 Unspecified abdominal pain; I95.9 Hypotension, unspecified; K21.9 Gastro-esophageal reflux disease without esophagitis
CPT/HCPCS: 36415; 74177; 80053; 80061; 80178; 80306; 80307; 81003; 82533; 83036; 83690; 84443; 85007; 85025; 85027; 85651; 86140; 96372; 97150; 97161; 97165; 99285; Q0162; Q0163; Q9967

== ENCOUNTER 2022-04-24 13:54 | Emergency (ER) | payer MEDICARE, MEDICAID, SELFPAY ==
--- NOTE | 2022-04-24 13:58 | ED.C_ITS ---
Documented by User: Andrez Joshua MD 04/25/22 19:17 HPI - Psych General: Chief Complaint: Psychiatric Symptoms Stated Complaint: hi Time Seen by Provider: 04/24/22 13:58 History of Present Illness: Ms. Hollingsworth is a 62-year-old lady with significant past medical history of dementia, hypertension, hyperlipidemia, possibly schizoaffective disorder, hypothyroidism and history of homicidal ideation presenting to the emergency department due to homicidal ideation. She was last hospitalized from 03/26 through 04/13 and does report feeling improved at time of hospital discharge. However, over the past few days she has had increasing homicidal ideation and generalized unwell feeling. She endorses desire to kill her as well as her client solutions manager and another relative who live in her house. She is somewhat disturbed by these thoughts and decided to come to the emergency department. She otherwise denies significant changes in health and thinks that she has been taking her medication properly. Course of symptoms has been worsening. Intensity is moderate to severe. No other specific changes in health, exacerbating, or alleviating factors identified. Duration: getting worse History of same: Yes Associated psychiatric symptoms: homicidal ideation Review of Systems General: Reports: 10 or more systems reviewed and unremarkable except in HPI and below PFSH ED PFSH: Medical History Delirium Delusion Hypertension Hypothyroidism Pneumonia due to 2019 novel coronavirus Schizophrenia Surgical History H/O: hysterectomy History of tonsillectomy Hx of appendectomy Hx of cholecystectomy Family History Denies family history of CAD (coronary artery disease) Hyperlipidemia Hypertension Social History Smoking and tobacco status: never smoked Alcohol intake: never Physical Exam Const: COMMON NORMALS: alert GENERAL APPEARANCE: cooperative and well developed HENMT: COMMON NORMALS: normocephalic and atraumatic HEAD & SCALP: normocephalic and atraumatic Eye: COMMON NORMALS: conjunctivae normal CONJUNCTIVA: Yes conjunctivae normal SCLERA: sclerae normal Neck/C-Spine: COMMON NORMALS: supple GENERAL: Yes trachea midline Resp: COMMON NORMALS: normal respiratory effort and clear to auscultation bilaterally EFFORT & INSPECTION: Yes able to speak in complete sentences AUSCULTATION: clear to auscultation bilaterally Cardio: COMMON NORMALS: regular rate and regular rhythm RATE: regular rate RHYTHM: regular rhythm GI: COMMON NORMALS: Soft to palpation PALPATION: Yes Soft to palpation and No Tenderness to palpation present (GI) PERCUSSION: normal to percussion Extremity: GENERAL: Yes normal exam except as noted and No edema Neuro: COMMON NORMALS: moves all extremities SENSORIUM/ORIENTATION: Yes alert and No Orientation impaired Psych: COMMON NORMALS: cooperative THOUGHT CONTENT: Yes Homicidality present INSIGHT: Limited insight present (Psych) JUDGEMENT: Limited judgement present (Psych) Course ED course: - Patient was seen and evaluated by me at bedside - Patient placed on cardiac monitors, vital signs obtained - Initial evaluation notable for exam as above - Labs and xrays personally interpreted by me - Labs notable for minimal leukocytosis, normal hemoglobin. Metabolic panel wi thout acute electrolyte derangement. Urinalysis not concerning for urinary tract infection. Toxic ingestion labs and urine drug screen negative. Gate level is elevated at 1.9. This may be artificially elevated given time of last dose though exact timing is somewhat unclear. COVID-negative - 1 L IV fluid bolus given. EKG reviewed. - Based on ED evaluation at this point there is no obvious condition that would preclude the patient from inpatient management of psychiatric concerns. I would recommend repeat lithium level in the morning and adjustment of lithium with titration to serum levels/therapeutic effect. - I discussed the case with Dr. Meyers of the psychiatry service who is familiar with the patient. Based on level of acuity as well as patient's underlying dementia he feels that patient would be better served by geriatric psych facility. - We will look for placement. Vital Signs: Vital signs: Vital Signs Temperature 97.9 F 04/24/22 13:59 Pulse Rate 74 04/25/22 12:22 Respiratory Rate 18 04/25/22 12:22 Blood Pressure 122/69 04/25/22 12:22 Pulse Oximetry 94 04/25/22 12:22 [facility] - Psych Medical Decision Making 62-year-old lady with psychiatric history presenting due to homicidal ideation. Similar presentations in the past. Patient reports compliance with medication regimen. Desires help and did find therapeutic benefit from previous hospitalizations. Due to current acuity on our psychiatric unit as well as history of dementia psychiatry service did not feel that the patient would benefit from additional hospitalization at our facility recommended transfer for [facility] psych. Signed out to Dr. Woody pending accepting facility. Medical Records I reviewed the patient's medical records. Lab Data I reviewed the patient's lab results. : 04/24/22 14:06 04/24/22 14:06 Radiology Impressions Chest X-Ray 04/25/22 02:36 IMPRESSION: 1. No definite CHF or pneumonia. 2. Other findings discussed above. Laboratory Results WBC 10.2 10^3/uL (4.0-10.0) H 04/24/22 14:06 RBC 4.55 10^6/uL (4.1-5.3) 04/24/22 14:06 Hgb 13.5 g/dL (11.5-15.3) 04/24/22 14:06 Hct 40.1 % (37.0-47.0) 04/24/22 14:06 MCV 88.1 fl (81-99) 04/24/22 14:06 MCH 29.7 pg (28.0-34.0) 04/24/22 14:06 MCHC 33.7 g/dL (30.0-36.0) 04/24/22 14:06 RDW 13.4 % (12.1-15.1) 04/24/22 14:06 Plt Count 248 10^3/cmm (130-400) 04/24/22 14:06 MPV 10.8 fL (7.4-10.4) H 04/24/22 14:06 Neut % (Auto) 65.9 % 04/24/22 14:06 Lymph % (Auto) 25.8 % 04/24/22 14:06 [place]er % (Auto) 6.6 % 04/24/22 14:06 Eos % (Auto) 1.0 % 04/24/22 14:06 Baso % (Auto) 0.5 % 04/24/22 14:06 Neut # (Auto) 6.69 10^3/uL (1.8-7.7) 04/24/22 14:06 Lymph # (Auto) 2.6 10^3/uL (0.8-4.8) 04/24/22 14:06 [place]er # (Auto) 0.7 10^3/uL (0.2-0.9) 04/24/22 14:06 Eos # (Auto) 0.1 10^3/uL (0.0-0.8) 04/24/22 14:06 Baso # (Auto) 0.1 10^3/uL (0.0-0.1) 04/24/22 14:06 Nucleated RBC % (auto) 0 % 04/24/22 14:06 Nucleated RBCs # 0.0 /100WBC 04/24/22 14:06 Sodium 139 mmol/L (136-145) 04/24/22 14:06 Potassium 3.8 mmol/L (3.5-5.1) 04/24/22 14:06 Chloride 104 mmol/L (98-107) 04/24/22 14:06 Carbon Dioxide 26 mmol/L (22-29) 04/24/22 14:06 Anion Gap 12.8 (5-19) 04/24/22 14:06 BUN 15 mg/dL (8-23) 04/24/22 14:06 Creatinine 0.7 mg/dL (0.5-0.9) 04/24/22 14:06 GFR Calculation 84.2 mL/min (90-130) L 04/24/22 14:06 Glucose 124 mg/dL (65-115) H 04/24/22 14:06 Calculated Osmolality 290 mOsm/kg (285-295) 04/24/22 14:06 Calcium 9.3 mg/dL (8.5-10.5) 04/24/22 14:06 Total Bilirubin 0.4 mg/dL (0.15-1.2) 04/24/22 14:06 AST 15 U/L (0-32) 04/24/22 14:06 ALT 20 U/L (0-33) 04/24/22 14:06 Alkaline Phosphatase 76 IU/L (35-105) 04/24/22 14:06 Total Protein 6.6 g/dL (6.6-8.7) 04/24/22 14:06 Albumin 4.3 g/dL (3.5-5.2) 04/24/22 14:06 Globulin 2.3 g/dL (1.3-4.6) 04/24/22 14:06 TSH 1.77 uIU/mL (0.27-4.20) 04/24/22 14:06 Urine Color Yellow (Yellow) 04/24/22 14:41 Urine Appearance Clear (CLEAR) 04/24/22 14:41 Urine pH 6 (5-7) 04/24/22 14:41 Ur Specific [place] 1.015 (1.005-1.030) 04/24/22 14:41 Urine Protein Neg (Negative) 04/24/22 14:41 Urine Glucose (UA) Norm (Normal) 04/24/22 14:41 Urine Ketones Negative (Negative) 04/24/22 14:41 Urine Blood Neg (Negative) 04/24/22 14:41 Urine Nitrate Negative (Negative) 04/24/22 14:41 Urine Bilirubin Neg (Negative) 04/24/22 14:41 Urine Urobilinogen Norm mg/dL (Negative) 04/24/22 14:41 Ur Leukocyte Esterase Negative (Negative) 04/24/22 14:41 Salicylates < 0.3 mg/dL (3-10) L 04/24/22 14:06 Urine Opiates Screen Negative ng/mL (Negative) 04/24/22 14:41 Acetaminophen < 5.0 ug/mL (10-30) L 04/24/22 14:06 Ur Barbiturates Screen Negative ng/mL (Negative) 04/24/22 14:41 Ur Phencyclidine Scrn Negative ng/mL (Negative) 04/24/22 14:41 Ur Amphetamines Screen Negative ng/mL (Negative) 04/24/22 14:41 U Benzodiazepines Scrn Negative ng/mL (Negative) 04/24/22 14:41 Gate 0.3 mmol/L (0.6-1.2) L 04/25/22 04:45 Urine Cocaine Screen Negative ng/mL (Negative) 04/24/22 14:41 U Marijuana (THC) Screen Negative ng/mL (Negative) 04/24/22 14:41 Ethyl Alcohol < 10 mg/dL (0-10) 04/24/22 14:06 SARS-CoV-2 Ag (Rapid) Negative (Negative) 04/24/22 22:55 Discharge Plan Discharge Patient Disposition: Xfer Psychiatric Hosp Clinical Impression: Homicidal ideation, Abnormal lithium level in blood Condition: Stable Prescriptions: No Action sucralfate 1 gram tablet 1 g PO TID 0RF clonazepam 0.5 mg Tablet 0.5 mg PO BEDTIME 30 Days Qty: 30 1RF buspirone 10 mg Tablet 10 mg PO TID 30 Days Qty: 90 1RF Flonase 50 mcg/actuation [place],Suspension 2 spray INTRANASAL DAILY PRN (Reason: Allergy Symptoms) 0RF Rx Instructions: administer into each nostril Invega Sustenna 117 mg/0.75 mL syringe 117 mg IM Q30D 0RF lithium carbonate 300 mg capsule 300 mg PO BID 0RF escitalopram oxalate 10 mg tablet 20 mg PO QAM 0RF paliperidone 6 mg tablet extended release 24hr 6 mg PO QAM 0RF atorvastatin 10 mg tablet 10 mg PO BEDTIME 0RF metoprolol tartrate 25 mg tablet 25 mg PO BID 0RF pantoprazole 40 mg tablet,delayed release (DR/EC) 40 mg PO BID 0RF Referrals: Talat Ayala [Primary Care Provider] - Coding Level of Care Code ED Promotions Officer for Chg Fwd Exam Comprehensive
[2022-04-24 13:59] VITALS: BP 126/82; PULSE 63; RESP 18; TEMP 36.6; O2SAT 94; BMI 51.3
[2022-04-24 14:58] LABS: Basophils # 0.1 10^3/uL (0.0-0.1); Basophils % 0.5 %; Eosinophils # 0.1 10^3/uL (0.0-0.8); Hematocrit 40.1 % (37.0-47.0); Hemoglobin 13.5 g/dL (11.5-15.3); Lymphocytes # 2.6 10^3/uL (0.8-4.8); Lymphocytes % 25.8 %; Mean Corpuscular HGB Conc 33.7 g/dL (30.0-36.0); Mean Corpuscular Hemoglobin 29.7 pg (28.0-34.0); Mean Corpuscular Volume 88.1 fl (81-99); Mean Platelet Volume 10.8 fL (7.4-10.4); Monocytes # 0.7 10^3/uL (0.2-0.9); Monocytes % 6.6 %; Neutrophils # 6.69 10^3/uL (1.8-7.7); Neutrophils % 65.9 %; Nucleated Red Blood Cells % 0 %; Platelet Count 248 10^3/cmm (130-400); Red Blood Count 4.55 10^6/uL (4.1-5.3); Red Cell Distribution Width 13.4 % (12.1-15.1); White Blood Count 10.2 10^3/uL (4.0-10.0)
[2022-04-24 15:18] LABS: Alanine Aminotransferase 20 U/L (0-33); Albumin Level 4.3 g/dL (3.5-5.2); Alkaline Phosphatase 76 IU/L (35-105); Anion Gap 12.8 (5-19); Aspartate Amino Transferase 15 U/L (0-32); Blood Urea Nitrogen 15 mg/dL (8-23); Calcium 9.3 mg/dL (8.5-10.5); Carbon Dioxide 26 mmol/L (22-29); Chloride 104 mmol/L (98-107); Globulin 2.3 g/dL (1.3-4.6); Glomerular Filtration Rate 84.2 mL/min (90-130); Glucose 124 mg/dL (65-115); Osmolality Calculated 290 mOsm/kg (285-295); Potassium 3.8 mmol/L (3.5-5.1); Sodium 139 mmol/L (136-145); Thyroid Stimulating Hormone 1.77 uIU/mL (0.27-4.20); Total Bilirubin 0.4 mg/dL (0.15-1.2); Total Protein 6.6 g/dL (6.6-8.7)
[2022-04-24 15:20] LABS: Acetaminophen < 5.0 ug/mL (10-30); Alcohol Level < 10 mg/dL (0-10); Salicylate < 0.3 mg/dL (3-10)
--- NOTE | 2022-04-24 15:29 | PC.PHAR ---
pt states her takes care of her medications-pts bud [phone] states the pt is no longer taking lisinopril 10mg take 30mg daily ext med history shows last filled 02/13/22 90d/s or risperidone 1mg bid filled on 04/12/22 30d/s
[2022-04-24] MEDS: LORazepam 2 mg/mL INJ 1 mL IM (15:33)
[2022-04-24 15:51] LABS: Lithium 1.9 mmol/L (0.6-1.2)
--- NOTE | 2022-04-24 15:56 | ECG_ITS ---
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 Measurements Intervals [place] Rate: 69 P: 73 MN: 170 QRS: 28 QRSD: 86 T: 90 QT: 413 QTc: 445 Interpretive Statements SINUS RHYTHM LOW QRS VOLTAGE IN PRECORDIAL LEADS [QRS DEFLECTION < 1.0 mV IN CHEST LEADS] NONSPECIFIC T-WAVE ABNORMALITY Compared to ECG 03/02/2022 17:25:02 No significant changes Electronically Signed On 04-24-2022 19:41:54 CDT by Ranulfo Winters M.D. [email or web address]
[2022-04-24 16:00] LABS: Add Urine Microscopic? NO; Charge for UA Resulting for Rev
[2022-04-24] MEDS: sodium chloride 0.9% 1,000 ML 999 ML IV (16:09)
[2022-04-24 16:37] LABS: Amphetamines Screen Urine Negative (Negative); Barbiturates Screen Urine Negative (Negative); Benzodiazepines Screen Urine Negative (Negative); Cocaine Screen Urine Negative (Negative); Opiate Screen Urine Negative (Negative); PCP Screen Urine Negative (Negative); THC Screen Urine Negative (Negative)
[2022-04-24 16:44] LABS: Bilirubin Urine Neg (Negative); Blood Urine Neg (Negative); Glucose Urine UA Norm (Normal); Ketones Urine Negative (Negative); Leukocyte Esterase Urine Negative (Negative); Nitrate Urine Negative (Negative); Protein Urine Neg (Negative); Specific Gravity, Urine 1.015 (1.005-1.030); Urine Appearance Clear (CLEAR); Urine Color Yellow (Yellow); Urobilinogen Urine Norm (Negative); pH Urine 6 (5-7)
[2022-04-24] MEDS: sucralfate 1 gm Tablet PO (22:16)
[2022-04-24] MEDS: BuSPIRONE 10 mg Tablet PO (22:16)
[2022-04-24] MEDS: metoprolol tartrate 25 mg Tablet PO (22:16)
[2022-04-24] MEDS: CLONazepam 0.5 mg Tablet PO (22:16)
[2022-04-24] MEDS: pantoprazole DR 40 mg Tablet PO (22:16)
[2022-04-24] MEDS: atorvastatin 40 mg Tablet 10 MG PO (22:17)
[2022-04-24 22:30] VITALS: BP 115/71; PULSE 73; O2SAT 94
[2022-04-24 23:28] LABS: SARS Covid-2 Antigen Negative (Negative)
--- NOTE | 2022-04-25 02:36 | XRR_ITS ---
PROCEDURE INFORMATION: Exam: XR Chest Exam date and time: 04/25/2022 2:38 AM Age: 62 years old Clinical indication: Screening exam; Other screening; Additional info: Psych TECHNIQUE: Imaging protocol: XR of the chest. Views: 1 view. COMPARISON: CR (CHEST, ) 03/02/2022 10:11 PM FINDINGS: Lungs: No CHF/pulmonary edema. Poor inspiration somewhat limits evaluation, especially of the lung bases. Visible lungs appear essentially clear. Pleural spaces: No visible pneumothorax. No definite pleural fluid. Heart/Mediastinum: Heart size is upper range of normal. Bones/joints: As before, the kidney noon she surgical fusion of the lower thoracic spine and upper lumbar spine. XR/XR chest 1V portable [id number] IMPRESSION: 1. No definite CHF or pneumonia. 2. Other findings discussed above.
[2022-04-25 05:15] LABS: Lithium 0.3 mmol/L (0.6-1.2)
[2022-04-25 05:17] VITALS: BP 114/80; PULSE 76; O2SAT 96
[2022-04-25 06:57] VITALS: BP 109/64; PULSE 72; O2SAT 92
[2022-04-25] MEDS: escitalopram 10 mg Tablet 20 MG PO (07:18)
[2022-04-25] MEDS: paliperidone ER 6 mg Tablet PO (07:18)
[2022-04-25] MEDS: metoprolol tartrate 25 mg Tablet PO (09:38)
[2022-04-25] MEDS: pantoprazole DR 40 mg Tablet PO (09:38)
[2022-04-25] MEDS: sucralfate 1 gm Tablet PO (09:38)
[2022-04-25] MEDS: BuSPIRONE 10 mg Tablet PO (09:38)
[2022-04-25 09:39] VITALS: BP 113/69; PULSE 90; O2SAT 96
[2022-04-25 12:22] VITALS: BP 122/69; PULSE 74; RESP 18; O2SAT 94
== END 2022-04-25 13:00 ==
PROVIDERS: Emergency Medicine; Emergency Provider Emergency Medicine; PCP Nurse Practitioner Family
DX: R45.850 Homicidal ideations (principal); R79.0 Abnormal level of blood mineral; E03.9 Hypothyroidism, unspecified; I10 Essential (primary) hypertension; F20.9 Schizophrenia, unspecified
CPT/HCPCS: 71045; 80053; 80178; 80306; 80307; 81003; 84443; 85025; 87426; 93005; 96372; 99284; J2060; J7030

== ENCOUNTER 2022-07-28 16:40 | Emergency (ER) | payer MEDICARE, MEDICAID, SELFPAY ==
[2022-07-28 16:49] VITALS: BP 145/95; PULSE 81; RESP 18; TEMP 36.7; O2SAT 95; BMI 38.0
--- NOTE | 2022-07-28 16:54 | ED_ITS ---
Documented by User: Bisi Styles MD 07/28/22 17:06 HPI - General Adult General: Chief complaint: Psychiatric Symptoms Stated complaint: HOMICIDAL Time Seen by Provider: 07/28/22 16:47 History of Present Illness: HPI: [62]yo patient w/ hx of homicidal ideation presenting to the ED for homicidal ideation. Patient has plans to harm a friend but would not divulge to me. On arrival, the patient is AAOx3 and cooperative with my evaluation. No focal complaints of chest pain, shortness of breath, palpitations, N/V, focal GI/ complaints. Currently denies SI. No complaints of hallucinations. Onset: acute Duration: ongoing Location: home Severity: severe Associated symptoms: Deny chest pain, dyspnea, nausea, rash, palpitations or vomiting Review of Systems Const: Denies: fever(s) or chills Eyes: Denies: change in vision ENMT: Denies: mouth pain Card: Denies: chest pain or palpitations Resp: Denies: dyspnea or non-productive cough GI: Denies: abdominal pain, nausea, vomiting or diarrhea : Denies: dysuria Musc: Denies: extremity pain Skin/Breast: Denies: rash or new lesions Neuro: Denies: weakness in extremities Psych: Reports: homicidal ideation Chris/Lymph: Denies: easy bruising PFSH ED PFSH: Medical History (Updated 07/28/22 @ 17:06 by Bisi Styles MD) Delirium Delusion Homicidal behavior Hypertension Hypothyroidism Pneumonia due to 2019 novel coronavirus Schizophrenia Surgical History H/O: hysterectomy History of tonsillectomy Hx of appendectomy Hx of cholecystectomy Family History Denies family history of CAD (coronary artery disease) Hyperlipidemia Hypertension Social History Smoking and tobacco status: never smoked Alcohol intake: never Physical Exam Const: COMMON NORMALS: alert HENMT: COMMON NORMALS: atraumatic HEAD & SCALP: atraumatic MOUTH: moist mucous membranes not abnormal Eye: COMMON NORMALS: EOMs intact bilaterally and conjunctivae normal CONJU NCTIVA: Yes conjunctivae normal Neck/C-Spine: COMMON NORMALS: full ROM and supple Resp: COMMON NORMALS: normal respiratory effort and clear to auscultation bilaterally AUSCULTATION: clear to auscultation bilaterally Cardio: COMMON NORMALS: regular rate RATE: regular rate GI: COMMON NORMALS: Soft to palpation and non-tender PALPATION: Yes Soft to palpation Extremity: COMMON NORMALS: full ROM Neuro: SENSORIUM/ORIENTATION: Yes alert MOTOR EXAM: No Abnormal motor strength present and Other motor observations present (no focal motor deficits) Psych: COMMON NORMALS: speech normal SPEECH: Yes normal speech MOOD & AFFECT: Yes euthymic mood Course Vital Signs: Vital signs: Vital Signs Temperature 98.0 F 07/28/22 16:49 Pulse Rate 75 07/29/22 14:39 Respiratory Rate 16 07/29/22 14:39 Blood Pressure 141/83 07/29/22 14:39 Pulse Oximetry 97 07/29/22 14:39 Oxygen Delivery Me thod 07/29/22 14:39 MDM - General Adult Medical Decision Making [62]yo patient w/ hx of prior homicial ideation presenting for homocidal ideation. HDS, exam within normal limit Thoughts are linear and organized, and the patient has no AH/VH, or HI. Clinically the patient displays no overt toxidrome; they are well appearing, with low suspicion for toxic ingestion given history and exam. Symptoms unlikely 2/2 anemia, hypothyroidism, infection, or ICH. Workup: CBC, CMP, Lipase, salicylate/tylenol, UDS Lab findings: wnl [6:30pm] On reassessment, labs and workup wnl. Patient is hemodynamically stable with no acute medical complaints. Case discussed with psychiatric provider Dr. Chan at [facility] psych inpatient with recommendation for admission Disposition: Psych Lab Data : 07/28/22 18:53 07/28/22 18:53 Radiology Impressions Chest X-Ray 07/28/22 23:45 IMPRESSION: Minimal patchy left lower lobe atelectasis versus infiltrate. Laboratory Results WBC 7.4 10^3/uL (4.0-10.0) 07/28/22 18:53 RBC 4.59 10^6/uL (4.1-5.3) 07/28/22 18:53 Hgb 13.6 g/dL (11.5-15.3) 07/28/22 18:53 Hct 41.7 % (37.0-47.0) 07/28/22 18:53 MCV 90.8 fl (81-99) 07/28/22 18:53 MCH 29.6 pg (28.0-34.0) 07/28/22 18:53 MCHC 32.6 g/dL (30.0-36.0) 07/28/22 18:53 RDW 14.5 % (12.1-15.1) 07/28/22 18:53 Plt Count 195 10^3/cmm (130-400) 07/28/22 18:53 MPV 10.8 fL (7.4-10.4) H 07/28/22 18:53 Neut % (Auto) 61.3 % 07/28/22 18:53 Lymph % (Auto) 27.1 % 07/28/22 18:53 Duc[place]ne % (Auto) 9.7 % 07/28/22 18:53 Eos % (Auto) 1.2 % 07/28/22 18:53 Baso % (Auto) 0.4 % 07/28/22 18:53 Neut # (Auto) 4.55 10^3/uL (1.8-7.7) 07/28/22 18:53 Lymph # (Auto) 2.0 10^3/uL (0.8-4.8) 07/28/22 18:53 Duc[place]ne # (Auto) 0.7 10^3/uL (0.2-0.9) 07/28/22 18:53 Eos # (Auto) 0.1 10^3/uL (0.0-0.8) 07/28/22 18:53 Baso # (Auto) 0.0 10^3/uL (0.0-0.1) 07/28/22 18:53 Nucleated RBC % (auto) 0 % 07/28/22 18:53 Nucleated RBCs # 0.0 /100WBC 07/28/22 18:53 Sodium 138 mmol/L (136-145) 07/28/22 18:53 Potassium 3.5 mmol/L (3.5-5.1) 07/28/22 18:53 Chloride 105 mmol/L (98-107) 07/28/22 18:53 Carbon Dioxide 25 mmol/L (22-29) 07/28/22 18:53 Anion Gap 11.5 (5-19) 07/28/22 18:53 BUN 8 mg/dL (8-23) 07/28/22 18:53 Creatinine 0.6 mg/dL (0.5-0.9) 07/28/22 18:53 GFR Calculation 100.6 mL/min (90-130) 07/28/22 18:53 Glucose 121 mg/dL (65-115) H 07/28/22 18:53 Calculated Osmolality 286 mOsm/kg (285-295) 07/28/22 18:53 Calcium 8.7 mg/dL (8.5-10.5) 07/28/22 18:53 Total Bilirubin 0.4 mg/dL (0.15-1.2) 07/28/22 18:53 AST 23 U/L (0-32) 07/28/22 18:53 ALT 30 U/L (0-33) 07/28/22 18:53 Alkaline Phosphatase 74 U/L (35-105) 07/28/22 18:53 Total Protein 6.1 g/dL (6.6-8.7) L 07/28/22 18:53 Albumin 3.9 g/dL (3.5-5.2) 07/28/22 18:53 Globulin 2.2 g/dL (1.3-4.6) 07/28/22 18:53 Lipase 28 U/L (13-60) 07/28/22 18:53 TSH 1.68 uIU/mL (0.27-4.20) 07/28/22 18:53 Free T4 1.35 ng/dL (0.82-1.77) 07/28/22 18:53 Urine Color Yellow (Yellow) 07/29/22 01:25 Urine Appearance Cloudy (CLEAR) 07/29/22 01:25 Urine pH 8 (5-7) H 07/29/22 01:25 Ur Specific [place] 1.020 (1.005-1.030) 07/29/22 01:25 Urine Protein Neg (Negative) 07/29/22 01:25 Urine Glucose (UA) Norm (Normal) 07/29/22 01:25 Urine Ketones Negative (Negative) 07/29/22 01:25 Urine Blood Neg (Negative) 07/29/22 01:25 Urine Nitrate Negative (Negative) 07/29/22 01:25 Urine Bilirubin Neg (Negative) 07/29/22 01:25 Prot Sulfosalicylic Acd Negative (Negative) 07/29/22 01:25 Urine Urobilinogen Neg mg/dL (Negative) 07/29/22 01:25 Ur Leukocyte Esterase Trace (Negative) H 07/29/22 01:25 Urine RBC 0-4 /hpf (0-2) H 07/29/22 01:25 Urine WBC 10-15 /hpf (0-5) H 07/29/22 01:25 Ur Squamous Epith Cells 0-4 /hpf (0-5) H 07/29/22 01:25 Amorphous Sediment 2+ /hpf 07/29/22 01:25 Urine Bacteria R /hpf (NONE) 07/29/22 01:25 Salicylates 2.4 mg/dL (3-10) L 07/28/22 18:53 Urine Opiates Screen Negative ng/mL (Negative) 07/29/22 01:25 Acetaminophen < 5.0 ug/mL (10-30) L 07/28/22 18:53 Ur Barbiturates Screen Negative ng/mL (Negative) 07/29/22 01:25 Ur Phencyclidine Scrn Negative ng/mL (Negative) 07/29/22 01:25 Ur Amphetamines Screen Negative ng/mL (Negative) 07/29/22 01:25 U Benzodiazepines Scrn Positive ng/mL (Negative) H 07/29/22 01:25 Urine Cocaine Screen Negative ng/mL (Negative) 07/29/22 01:25 U Marijuana (THC) Screen Negative ng/mL (Negative) 07/29/22 01:25 Ethyl Alcohol < 10 mg/dL (0-10) 07/28/22 18:53 SARS-CoV-2 Ag (Rapid) Negative (Negative) 07/28/22 20:22 Discharge Plan Discharge Patient Disposition: Xfer Psychiatric Hosp Clinical Impression: Homicidal ideation Condition: Stable Referrals: Talat Ayala [Primary Care Provider] - Sign Out Sign Out Data: Patient Sign Out occurred on 07/29/22 at 01:58. Patient's care was discussed, and care was transferred from to Andrez Joshua MD. Coding Level of Care Code ED [employer] for Chg Fwd Exam Comprehensive Documented by User: Ashley Woody MD 07/29/22 12:05 HPI - General Adult General: Chief complaint: Psychiatric Symptoms Stated complaint: HOMICIDAL Time Seen by Provider: 07/28/22 16:47 PFSH ED PFSH: Medical History (Updated 07/28/22 @ 17:06 by Bisi Styles MD) Delirium Delusion Homicidal behavior Hypertension Hypothyroidism Pneumonia due to 2019 novel coronavirus Schizophrenia Surgical History H/O: hysterectomy History of tonsillectomy Hx of appendectomy Hx of cholecystectomy Family History Denies family history of CAD (coronary artery disease) Hyperlipidemia Hypertension Social History Smoking and tobacco status: never smoked Alcohol intake: never Course Vital Signs: Vital signs: Vital Signs Temperature 98.0 F 07/28/22 16:49 Pulse Rate 75 07/29/22 14:39 Respiratory Rate 16 07/29/22 14:39 Blood Pressure 141/83 07/29/22 14:39 Pulse Oximetry 97 07/29/22 14:39 Oxygen Delivery Me thod 07/29/22 14:39 MDM - General Adult Medical Decision Making [62]yo patient w/ hx of prior homicial ideation presenting for homocidal ideation. HDS, exam within normal limit Thoughts are linear and organized, and the patient has no AH/VH, or HI. Clinically the patient displays no overt toxidrome; they are well appearing, with low suspicion for toxic ingestion given history and exam. Symptoms unlikely 2/2 anemia, hypothyroidism, infection, or ICH. Workup: CBC, CMP, Lipase, salicylate/tylenol, UDS Lab findings: wnl [6:30pm] On reassessment, labs and workup wnl. Patient is hemodynamically stable with no acute medical complaints. Case discussed with psychiatric provider Dr. Chan at [facility] psych inpatient with recommendation for admission Disposition: Psych Patient was placed under 96-hour hold here for homicidal ideations patient is medically cleared patient excepted at [facility] will transfer there due to bed availability Lab Data : 07/28/22 18:53 07/28/22 18:53 Radiology Impressions Chest X-Ray 07/28/22 23:45 IMPRESSION: Minimal patchy left lower lobe atelectasis versus infiltrate. Laboratory Results WBC 7.4 10^3/uL (4.0-10.0) 07/28/22 18:53 RBC 4.59 10^6/uL (4.1-5.3) 07/28/22 18:53 Hgb 13.6 g/dL (11.5-15.3) 07/28/22 18:53 Hct 41.7 % (37.0-47.0) 07/28/22 18:53 MCV 90.8 fl (81-99) 07/28/22 18:53 MCH 29.6 pg (28.0-34.0) 07/28/22 18:53 MCHC 32.6 g/dL (30.0-36.0) 07/28/22 18:53 RDW 14.5 % (12.1-15.1) 07/28/22 18:53 Plt Count 195 10^3/cmm (130-400) 07/28/22 18:53 MPV 10.8 fL (7.4-10.4) H 07/28/22 18:53 Neut % (Auto) 61.3 % 07/28/22 18:53 Lymph % (Auto) 27.1 % 07/28/22 18:53 Duchesne % (Auto) 9.7 % 07/28/22 18:53 Eos % (Auto) 1.2 % 07/28/22 18:53 Baso % (Auto) 0.4 % 07/28/22 18:53 Neut # (Auto) 4.55 10^3/uL (1.8-7.7) 07/28/22 18:53 Lymph # (Auto) 2.0 10^3/uL (0.8-4.8) 07/28/22 18:53 Duchesne # (Auto) 0.7 10^3/uL (0.2-0.9) 07/28/22 18:53 Eos # (Auto) 0.1 10^3/uL (0.0-0.8) 07/28/22 18:53 Baso # (Auto) 0.0 10^3/uL (0.0-0.1) 07/28/22 18:53 Nucleated RBC % (auto) 0 % 07/28/22 18:53 Nucleated RBCs # 0.0 /100WBC 07/28/22 18:53 Sodium 138 mmol/L (136-145) 07/28/22 18:53 Potassium 3.5 mmol/L (3.5-5.1) 07/28/22 18:53 Chloride 105 mmol/L (98-107) 07/28/22 18:53 Carbon Dioxide 25 mmol/L (22-29) 07/28/22 18:53 Anion Gap 11.5 (5-19) 07/28/22 18:53 BUN 8 mg/dL (8-23) 07/28/22 18:53 Creatinine 0.6 mg/dL (0.5-0.9) 07/28/22 18:53 GFR Calculation 100.6 mL/min (90-130) 07/28/22 18:53 Glucose 121 mg/dL (65-115) H 07/28/22 18:53 Calculated Osmolality 286 mOsm/kg (285-295) 07/28/22 18:53 Calcium 8.7 mg/dL (8.5-10.5) 07/28/22 18:53 Total Bilirubin 0.4 mg/dL (0.15-1.2) 07/28/22 18:53 AST 23 U/L (0-32) 07/28/22 18:53 ALT 30 U/L (0-33) 07/28/22 18:53 Alkaline Phosphatase 74 U/L (35-105) 07/28/22 18:53 Total Protein 6.1 g/dL (6.6-8.7) L 07/28/22 18:53 Albumin 3.9 g/dL (3.5-5.2) 07/28/22 18:53 Globulin 2.2 g/dL (1.3-4.6) 07/28/22 18:53 Lipase 28 U/L (13-60) 07/28/22 18:53 TSH 1.68 uIU/mL (0.27-4.20) 07/28/22 18:53 Free T4 1.35 ng/dL (0.82-1.77) 07/28/22 18:53 Urine Color Yellow (Yellow) 07/29/22 01:25 Urine Appearance Cloudy (CLEAR) 07/29/22 01:25 Urine pH 8 (5-7) H 07/29/22 01:25 Ur Specific [place] 1.020 (1.005-1.030) 07/29/22 01:25 Urine Protein Neg (Negative) 07/29/22 01:25 Urine Glucose (UA) Norm (Normal) 07/29/22 01:25 Urine Ketones Negative (Negative) 07/29/22 01:25 Urine Blood Neg (Negative) 07/29/22 01:25 Urine Nitrate Negative (Negative) 07/29/22 01:25 Urine Bilirubin Neg (Negative) 07/29/22 01:25 Prot Sulfosalicylic Acd Negative (Negative) 07/29/22 01:25 Urine Urobilinogen Neg mg/dL (Negative) 07/29/22 01:25 Ur Leukocyte Esterase Trace (Negative) H 07/29/22 01:25 Urine RBC 0-4 /hpf (0-2) H 07/29/22 01:25 Urine WBC 10-15 /hpf (0-5) H 07/29/22 01:25 Ur Squamous Epith Cells 0-4 /hpf (0-5) H 07/29/22 01:25 Amorphous Sediment 2+ /hpf 07/29/22 01:25 Urine Bacteria R /hpf (NONE) 07/29/22 01:25 Salicylates 2.4 mg/dL (3-10) L 07/28/22 18:53 Urine Opiates Screen Negative ng/mL (Negative) 07/29/22 01:25 Acetaminophen < 5.0 ug/mL (10-30) L 07/28/22 18:53 Ur Barbiturates Screen Negative ng/mL (Negative) 07/29/22 01:25 Ur Phencyclidine Scrn Negative ng/mL (Negative) 07/29/22 01:25 Ur Amphetamines Screen Negative ng/mL (Negative) 07/29/22 01:25 U Benzodiazepines Scrn Positive ng/mL (Negative) H 07/29/22 01:25 Urine Cocaine Screen Negative ng/mL (Negative) 07/29/22 01:25 U Marijuana (THC) Screen Negative ng/mL (Negative) 07/29/22 01:25 Ethyl Alcohol < 10 mg/dL (0-10) 07/28/22 18:53 SARS-CoV-2 Ag (Rapid) Negative (Negative) 07/28/22 20:22 Discharge Plan Discharge Patient Disposition: er Psychiatric Hosp Clinical Impression: Homicidal ideation Condition: Stable Referrals: Talat Ayala [Primary Care Provider] - Sign Out Sign Out Data: Patient Sign Out occurred on 07/29/22 at 01:58. Patient's care was discussed, and care was transferred from to Andrez Joshua MD. Coding Level of Care Code ED [employer] for Chg Fwd Exam Comprehensive Documented by User: Andrez Joshua MD 08/20/22 17:47 HPI - General Adult General: Chief complaint: Psychiatric Symptoms Stated complaint: HOMICIDAL Time Seen by Provider: 07/28/22 16:47 PFSH ED PFSH: Medical History (Updated 07/28/22 @ 17:06 by Bisi Styles MD) Delirium Delusion Homicidal behavior Hypertension Hypothyroidism Pneumonia due to 2019 novel coronavirus Schizophrenia Surgical History H/O: hysterectomy History of tonsillectomy Hx of appendectomy Hx of cholecystectomy Family History Denies family history of CAD (coronary artery disease) Hyperlipidemia Hypertension Social History Smoking and tobacco status: never smoked Alcohol intake: never Course Vital Signs: Vital signs: Vital Signs Temperature 98.0 F 07/28/22 16:49 Pulse Rate 75 07/29/22 14:39 Respiratory Rate 16 07/29/22 14:39 Blood Pressure 141/83 07/29/22 14:39 Pulse Oximetry 97 07/29/22 14:39 Oxygen Delivery Me thod 07/29/22 14:39 MDM - General Adult Medical Decision Making [62]yo patient w/ hx of prior homicial ideation presenting for homocidal ideation. HDS, exam within normal limit Thoughts are linear and organized, and the patient has no AH/VH, or HI. Clinically the patient displays no overt toxidrome; they are well appearing, with low suspicion for toxic ingestion given history and exam. Symptoms unlikely 2/2 anemia, hypothyroidism, infection, or ICH. Workup: CBC, CMP, Lipase, salicylate/tylenol, UDS Lab findings: wnl [6:30pm] On reassessment, labs and workup wnl. Patient is hemodynamically stable with no acute medical complaints. Case discussed with psychiatric provider Dr. Chan at [facility] psych inpatient with recommendation for admission Disposition: Psych Patient was placed under 96-hour hold here for homicidal ideations patient is medically cleared patient excepted at [facility] will transfer there due to bed availability I discussed this case with Dr. Styles at time of handoff. No acute events during my care of the patient. Andrez Joshua MD Emergency Medicine Lab Data : 07/28/22 18:53 07/28/22 18:53 Radiology Impressions Chest X-Ray 07/28/22 23:45 IMPRESSION: Minimal patchy left lower lobe atelectasis versus infiltrate. Laboratory Results WBC 7.4 10^3/uL (4.0-10.0) 07/28/22 18:53 RBC 4.59 10^6/uL (4.1-5.3) 07/28/22 18:53 Hgb 13.6 g/dL (11.5-15.3) 07/28/22 18:53 Hct 41.7 % (37.0-47.0) 07/28/22 18:53 MCV 90.8 fl (81-99) 07/28/22 18:53 MCH 29.6 pg (28.0-34.0) 07/28/22 18:53 MCHC 32.6 g/dL (30.0-36.0) 07/28/22 18:53 RDW 14.5 % (12.1-15.1) 07/28/22 18:53 Plt Count 195 10^3/cmm (130-400) 07/28/22 18:53 MPV 10.8 fL (7.4-10.4) H 07/28/22 18:53 Neut % (Auto) 61.3 % 07/28/22 18:53 Lymph % (Auto) 27.1 % 07/28/22 18:53 Duc[place]ne % (Auto) 9.7 % 07/28/22 18:53 Eos % (Auto) 1.2 % 07/28/22 18:53 Baso % (Auto) 0.4 % 07/28/22 18:53 Neut # (Auto) 4.55 10^3/uL (1.8-7.7) 07/28/22 18:53 Lymph # (Auto) 2.0 10^3/uL (0.8-4.8) 07/28/22 18:53 [place] # (Auto) 0.7 10^3/uL (0.2-0.9) 07/28/22 18:53 Eos # (Auto) 0.1 10^3/uL (0.0-0.8) 07/28/22 18:53 Baso # (Auto) 0.0 10^3/uL (0.0-0.1) 07/28/22 18:53 Nucleated RBC % (auto) 0 % 07/28/22 18:53 Nucleated RBCs # 0.0 /100WBC 07/28/22 18:53 Sodium 138 mmol/L (136-145) 07/28/22 18:53 Potassium 3.5 mmol/L (3.5-5.1) 07/28/22 18:53 Chloride 105 mmol/L (98-107) 07/28/22 18:53 Carbon Dioxide 25 mmol/L (22-29) 07/28/22 18:53 Anion Gap 11.5 (5-19) 07/28/22 18:53 BUN 8 mg/dL (8-23) 07/28/22 18:53 Creatinine 0.6 mg/dL (0.5-0.9) 07/28/22 18:53 GFR Calculation 100.6 mL/min (90-130) 07/28/22 18:53 Glucose 121 mg/dL (65-115) H 07/28/22 18:53 Calculated Osmolality 286 mOsm/kg (285-295) 07/28/22 18:53 Calcium 8.7 mg/dL (8.5-10.5) 07/28/22 18:53 Total Bilirubin 0.4 mg/dL (0.15-1.2) 07/28/22 18:53 AST 23 U/L (0-32) 07/28/22 18:53 ALT 30 U/L (0-33) 07/28/22 18:53 Alkaline Phosphatase 74 U/L (35-105) 07/28/22 18:53 Total Protein 6.1 g/dL (6.6-8.7) L 07/28/22 18:53 Albumin 3.9 g/dL (3.5-5.2) 07/28/22 18:53 Globulin 2.2 g/dL (1.3-4.6) 07/28/22 18:53 Lipase 28 U/L (13-60) 07/28/22 18:53 TSH 1.68 uIU/mL (0.27-4.20) 07/28/22 18:53 Free T4 1.35 ng/dL (0.82-1.77) 07/28/22 18:53 Urine Color Yellow (Yellow) 07/29/22 01:25 Urine Appearance Cloudy (CLEAR) 07/29/22 01:25 Urine pH 8 (5-7) H 07/29/22 01:25 Ur Specific [place] 1.020 (1.005-1.030) 07/29/22 01:25 Urine Protein Neg (Negative) 07/29/22 01:25 Urine Glucose (UA) Norm (Normal) 07/29/22 01:25 Urine Ketones Negative (Negative) 07/29/22 01:25 Urine Blood Neg (Negative) 07/29/22 01:25 Urine Nitrate Negative (Negative) 07/29/22 01:25 Urine Bilirubin Neg (Negative) 07/29/22 01:25 Prot Sulfosalicylic Acd Negative (Negative) 07/29/22 01:25 Urine Urobilinogen Neg mg/dL (Negative) 07/29/22 01:25 Ur Leukocyte Esterase Trace (Negative) H 07/29/22 01:25 Urine RBC 0-4 /hpf (0-2) H 07/29/22 01:25 Urine WBC 10-15 /hpf (0-5) H 07/29/22 01:25 Ur Squamous Epith Cells 0-4 /hpf (0-5) H 07/29/22 01:25 Amorphous Sediment 2+ /hpf 07/29/22 01:25 Urine Bacteria R /hpf (NONE) 07/29/22 01:25 Salicylates 2.4 mg/dL (3-10) L 07/28/22 18:53 Urine Opiates Screen Negative ng/mL (Negative) 07/29/22 01:25 Acetaminophen < 5.0 ug/mL (10-30) L 07/28/22 18:53 Ur Barbiturates Screen Negative ng/mL (Negative) 07/29/22 01:25 Ur Phencyclidine Scrn Negative ng/mL (Negative) 07/29/22 01:25 Ur Amphetamines Screen Negative ng/mL (Negative) 07/29/22 01:25 U Benzodiazepines Scrn Positive ng/mL (Negative) H 07/29/22 01:25 Urine Cocaine Screen Negative ng/mL (Negative) 07/29/22 01:25 U Marijuana (THC) Screen Negative ng/mL (Negative) 07/29/22 01:25 Ethyl Alcohol < 10 mg/dL (0-10) 07/28/22 18:53 SARS-CoV-2 Ag (Rapid) Negative (Negative) 07/28/22 20:22 Discharge Plan Discharge Patient Disposition: Xfer Psychiatric Hosp Clinical Impression: Homicidal ideation Condition: Stable Referrals: Talat Aylaa [Primary Care Provider] - Sign Out Sign Out Data: Patient Sign Out occurred on 07/29/22 at 01:58. Patient's care was discussed, and care was transferred from to Andrez Joshua MD. Coding Level of Care Code ED [employer] for Vicki Fwd Exam Comprehensive
--- NOTE | 2022-07-28 17:00 | PC.NURSE ---
pt reports having homicidal ideations due to I have the Devil on me. 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 Denies SI. Pt requesting a shot due to nerves and so I don't hit people
--- NOTE | 2022-07-28 17:06 | PC.NURSE ---
pt denies CP, dyspnea, fever, cough, or fall. reports chronic abdominal pain.
[2022-07-28] MEDS: LORazepam 1 mg Tablet PO (17:36)
--- NOTE | 2022-07-28 17:54 | ECG_ITS ---
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 Measurements Intervals [place] Rate: 68 P: 68 NH: 169 QRS: 14 QRSD: 73 T: 39 QT: 386 QTc: 412 Interpretive Statements SINUS RHYTHM LOW QRS VOLTAGE IN PRECORDIAL LEADS [QRS DEFLECTION < 1.0 mV IN CHEST LEADS] NONSPECIFIC ST & T-WAVE ABNORMALITY Compared to ECG 04/24/2022 16:31:04 No significant changes Electronically Signed On 07-29-2022 8:34:23 CDT by Yocasta Awad M.D. [email or web address]
--- NOTE | 2022-07-28 19:07 | PC.NURSE ---
report given to ZAHRAA Fierro
[2022-07-28 19:15] LABS: Basophils % 0.4 %; Eosinophils # 0.1 10^3/uL (0.0-0.8); Eosinophils % 1.2 %; Hematocrit 41.7 % (37.0-47.0); Hemoglobin 13.6 g/dL (11.5-15.3); Lymphocytes % 27.1 %; Mean Corpuscular HGB Conc 32.6 g/dL (30.0-36.0); Mean Corpuscular Hemoglobin 29.6 pg (28.0-34.0); Mean Corpuscular Volume 90.8 fl (81-99); Mean Platelet Volume 10.8 fL (7.4-10.4); Monocytes # 0.7 10^3/uL (0.2-0.9); Monocytes % 9.7 %; Neutrophils # 4.55 10^3/uL (1.8-7.7); Neutrophils % 61.3 %; Nucleated Red Blood Cells % 0 %; Platelet Count 195 10^3/cmm (130-400); Red Blood Count 4.59 10^6/uL (4.1-5.3); Red Cell Distribution Width 14.5 % (12.1-15.1); White Blood Count 7.4 10^3/uL (4.0-10.0)
--- NOTE | 2022-07-28 19:45 | PC.NURSE ---
Addendum entered by Stacey Kingston RN 07/28/22 19:46: assumed care of patient at 1928, report taken from josefina jacobs, 1:1 sitter at bedside, pt reports reflux, attending notified. Original Note: assumed care of patient at this time, report taken from josefina jacobs, 1:1 sitter at bedside, pt reports reflux, attending notified.
[2022-07-28 19:46] LABS: Alanine Aminotransferase 30 U/L (0-33); Albumin Level 3.9 g/dL (3.5-5.2); Alkaline Phosphatase 74 U/L (35-105); Aspartate Amino Transferase 23 U/L (0-32); Blood Urea Nitrogen 8 mg/dL (8-23); Calcium 8.7 mg/dL (8.5-10.5); Carbon Dioxide 25 mmol/L (22-29); Chloride 105 mmol/L (98-107); Globulin 2.2 g/dL (1.3-4.6); Glomerular Filtration Rate 100.6 mL/min (90-130); Glucose 121 mg/dL (65-115); Lipase 28 U/L (13-60); Osmolality Calculated 286 mOsm/kg (285-295); Salicylate 2.4 mg/dL (3-10); Sodium 138 mmol/L (136-145); Thyroid Stimulating Hormone 1.68 uIU/mL (0.27-4.20); Total Bilirubin 0.4 mg/dL (0.15-1.2); Total Protein 6.1 g/dL (6.6-8.7)
[2022-07-28 19:47] LABS: Acetaminophen < 5.0 ug/mL (10-30); Alcohol Level < 10 mg/dL (0-10)
[2022-07-28 19:48] LABS: Anion Gap 11.5 (5-19); Potassium 3.5 mmol/L (3.5-5.1)
[2022-07-28 21:00] LABS: SARS Covid-2 Antigen Negative (Negative)
[2022-07-28 21:07] LABS: Free T4 Free Thyroxine 1.35 ng/dL (0.82-1.77)
[2022-07-28 21:45] VITALS: PULSE 87; RESP 16; O2SAT 97
[2022-07-28 22:00] VITALS: RESP 19
--- NOTE | 2022-07-28 22:20 | PC.NURSE ---
confirmed with charge nurse josefina that no beds are available at this facility, states that we will attempt to transfer patient out. states no actions to be taken by this nurse at this time, community living instructor nilton is faxing and calling facilities.
--- NOTE | 2022-07-28 23:45 | XRR_ITS ---
PROCEDURE INFORMATION: Exam: XR Chest Exam date and time: 07/28/2022 11:52 PM Age: 62 years old Clinical indication: Prior surgery; Surgery type: Gb; Patient HX: Medical clearance for psych transfer TECHNIQUE: Imaging protocol: Radiologic exam of the chest. Views: 1 view. COMPARISON: CR (CHEST, ) 04/25/2022 2:38 AM FINDINGS: Lungs: Minimal patchy left lower lobe atelectasis versus infiltrate. Pleural spaces: Unremarkable. No pleural effusion. No pneumothorax. Heart/Mediastinum: Unremarkable. No cardiomegaly. Bones/joints: Unremarkable. XR/XR chest 1V portable [id number] IMPRESSION: Minimal patchy left lower lobe atelectasis versus infiltrate.
[2022-07-29 01:27] VITALS: BP 119/72; PULSE 74; RESP 16; O2SAT 96
[2022-07-29 01:54] LABS: Amphetamines Screen Urine Negative (Negative); Barbiturates Screen Urine Negative (Negative); Benzodiazepines Screen Urine Positive (Negative); Cocaine Screen Urine Negative (Negative); Opiate Screen Urine Negative (Negative); PCP Screen Urine Negative (Negative); THC Screen Urine Negative (Negative)
[2022-07-29 02:08] LABS: Add Urine Microscopic? YES; Bilirubin Urine Neg (Negative); Blood Urine Neg (Negative); Glucose Urine UA Norm (Normal); Ketones Urine Negative (Negative); Leukocyte Esterase Urine Trace (Negative); Nitrate Urine Negative (Negative); Protein Urine Neg (Negative); Sulfosalicylic Acid Urine Negative (Negative); Urine Appearance Cloudy (CLEAR); Urine Color Yellow (Yellow); Urobilinogen Urine Neg (Negative); pH Urine 8 (5-7)
[2022-07-29 02:09] LABS: Add Urine Culture? No; Amorphous Sediment Urine 2+ /hpf; Bacteria Urine R /hpf; RBC Urine 0-4 /hpf (0-2); Squamous Epithelial Cell Urine 0-4 /hpf (0-5)
[2022-07-29 03:19] VITALS: RESP 16; O2SAT 98
[2022-07-29 06:15] VITALS: RESP 19
--- NOTE | 2022-07-29 06:51 | PC.NURSE ---
report given to leobardo jacobs
[2022-07-29] MEDS: cephALEXin 500 mg Capsule PO (08:11)
[2022-07-29 08:15] VITALS: BP 122/84; PULSE 76; RESP 16; O2SAT 96
[2022-07-29 09:15] VITALS: BP 147/96; PULSE 76; RESP 16; O2SAT 95
--- NOTE | 2022-07-29 10:43 | PC.NURSE ---
PT STATES SHE HAD SOME ABDOMINAL BURNING AFTER BREAKFAST AND HER MORNING DOSE OF KEFLEX. PHYSICIAN NOTIFIED. DR WITT GAVE VERBAL ORDER FOR GI COCKTAIL. PT REFUSED MEDICATION
[2022-07-29 14:39] VITALS: BP 141/83; PULSE 75; RESP 16; O2SAT 97
--- NOTE | 2022-08-01 14:56 | DCPLANNER ---
The following facilities were called trying to find placement for patient: [facility] - faxed information at 9:25, faxed more information at 10:15 [facility] - no beds [facility] beds [facility] - no beds no discharges until Sunday [facility] - no beds [facility] - no beds put on waiting list [facility] - no beds on divert [facility] - no beds may have some on Sunday [facility] - no beds [facility] - no beds
== END 2022-07-29 14:44 ==
LOC: ER 19:54 → ER IP 07-29 01:58 → ER 07-29 12:04
PROVIDERS: Emergency Medicine; Emergency Provider Emergency Medicine; PCP Nurse Practitioner Family
DX: R45.850 Homicidal ideations (principal); I10 Essential (primary) hypertension; E03.9 Hypothyroidism, unspecified
CPT/HCPCS: 71045; 80053; 80306; 80307; 81001; 83690; 84439; 84443; 85025; 87426; 93005; 99285

== ENCOUNTER 2022-10-17 09:54 | Outpatient (CLI) | payer MEDICARE, MEDICAID, SELFPAY ==
--- NOTE | 2022-10-17 10:14 | MM_ITS ---
WS: [id number] Bilateral screening digital mammogram, 10/17/2022 Clinical Data: SCREEN/ PT CANNOT HOLD BREATH Comparison: 02/04/2019 Findings: The breast parenchymal pattern shows fibroglandular tissue. No spiculated masses or clustered calcifi cations are seen. There are no secondary signs of carcinoma. MM/[id number] Impression: 1. Negative bilateral mammogram unchanged. 2. Recommend annual screening mammograms. BIRADS: 1-Negative FOLLOW UP: 1 Year Follow-up The CAD soil checker was used.
== END 2022-10-17 09:55 | disposition home or self-care (01) ==
PROVIDERS: PCP Nurse Practitioner Family; Visit Provider Nurse Practitioner Family
DX: Z12.31 Encounter for screening mammogram for malignant neoplasm of breast (principal)
CPT/HCPCS: 77067